=== PATIENT | male | born 1955 | race Caucasian/White ===

== ENCOUNTER 2020-07-22 20:02 | Emergency (ER) | payer MEDICARE, SELFPAY ==
--- NOTE | 2020-07-22 20:21 | ED.PSYCH ---
HPI - Psych General Stated Complaint: SI Time Seen by Provider: 07/22/20 20:21 Source: patient Mode of arrival: ambulatory Limitations: no limitations History of Present Illness MD complaint: suicidal ideation and feels depressed Onset (ago): day(s) (started on ) Duration: constant History of same: Yes Relieving factors: none Exacerbating factors: none Context: significant life stressor Associated psychiatric symptoms: depression and suicidal ideation Associated symptoms: denies other symptoms Treatments prior to arrival: none If self harm: admits thoughts of self harm and has plan Related Data Allergies Allergy/AdvReac Type Severity Reaction Status Date / Time No Known Drug Allergies Allergy Unknown NONE Unverified 04/08/20 17:00 [NO KNOWN DRUG ALLERGIES] Review of Systems Review of Systems: Constitutional : No Fever, No Chills ENT/Mouth : No Ear Pain, No Nasal Congestion, No sore throat Eyes: No Eye Pain, No Swelling, No Redness Cardiovascular : No Chest Pain, No SOB Respiratory : No Cough, No Sputum, No Dyspnea Gastrointestinal : No Nausea, No Vomiting, No Diarrhea, No Hematochezia, No Melena Genitourinary : No Dysuria, No Urinary Frequency, No Hematuria Musculoskeletal : No Myalgias Skin : No Skin Lesions, No rash Neuro : No Weakness, No Numbness, No Paresthesias, No Dizziness, No Headache Psych : positive Anxiety, positive Depression, positive SI no HI Heme/Lymph: No Lymphadenopathy Endocrine : No Polyuria, No Polydipsia All other systems reviewed and are negative [facility] Past Medical History Attestation statement: The following information was validated with the patient. Medical History (Updated 07/22/20 @ 20:48 by Mona Dorman DO) Anemia Cognitive impairment Depression HTN (hypertension) Hyperlipidemia Stroke Social History Social History (Updated 07/22/20 @ 20:45 by Mona Dorman DO) Alcohol intake: former Smoking Status: Former smoker Physical Exam Vital Signs: Appearance: Alert. Oriented X3. No acute distress. Flat affect Eyes: Pupils equal, round and reactive to light. ENT: Pharynx normal. Neck: Normal inspection. Neck supple. CVS: Normal heart rate and rhythm. Pulses normal. Respiratory: No respiratory distress. Breath sounds normal. Abdomen: Soft and non-tender. Skin: Skin warm and dry. Normal skin color. Normal skin turgor. Extremities: No lower extremity edema. No calf ttp old scars noted L forearm Neuro: Oriented X 3. No motor deficit. No sensory deficit. Course Course Course Narrative: signed out pending N input MDM - Psych MDM Narrative Medical decision making narrative: 65 yo male with hx of mental health issues here with worsening depression and SI - hx of attempts in the past at this time will need labs, COVID swab, N consult Discharge Plan Discharge Clinical Impression: Depression Qualifiers: Depression Type: unspecified Qualified Code(s): F32.9 - Major depressive disorder, single episode, unspecified
[2020-07-22 21:01] VITALS: BP 184/92; PULSE 70; RESP 20; TEMP 36.6; O2SAT 97
[2020-07-22 21:12] LABS: Basophils Absolute Auto 0.1 X10*3/uL (0.0-0.2); Basophils Percent Auto 0.7 % (0-2); Eosinophils Absolute Auto 0.4 X10*3/uL (0.0-0.4); Eosinophils Percent Auto 3.6 % (0-4); Hematocrit 43.3 % (42-52); Imm Gran Abs Auto 0.02 X10*3/uL (0.00-0.03); Imm Gran Pct Auto 0.2 % (0.0-0.4); Lymphocytes Absolute Auto 2.6 X10*3/uL (1.2-4.9); Lymphocytes Percent Auto 24.7 % (20-40); MANUAL DIFF FLAG NO; Mean Corpuscular HGB Conc 34.6 g/dl (31.0-36.0); Mean Corpuscular Hemoglobin 30.4 pg (27.0-33.0); Mean Corpuscular Volume 87.8 fL (80-98); Mean Platelet Volume 9.7 fL (9.4-12.4); Monocytes Absolute Auto 0.9 X10*3/uL (0.1-1.2); Monocytes Percent Auto 8.2 % (2-11); Neutrophils Absolute Auto 6.5 X10*3/uL (2.0-8.3); Neutrophils Percent Auto 62.6 % (45-73); Platelet Count 278 X10*3/uL (160-400); Red Blood Count 4.93 X10*6/uL (4.60-5.80); Red Cell Distribution Width 12.1 % (11.0-16.0); White Blood Count 10.3 X10*3/uL (4.8-10.8)
[2020-07-22 21:39] LABS: Ethanol < 10 mg/dL
[2020-07-22 21:41] LABS: Alanine Aminotransferase 24 U/L (0-40); Albumin Level 4.5 g/dL (3.5-5.0); Alkaline Phosphatase 144 U/L (39-117); Anion Gap 14 (12-20); Aspartate Amino Transferase 23 U/L (5-37); Bilirubin Direct 0.3 mg/dL (0.0-0.5); Bilirubin Total 0.9 mg/dL (0.0-1.0); Blood Urea Nitrogen 19 mg/dL (9-16); Calcium 8.8 mg/dL (8.4-10.2); Carbon Dioxide 25 mmol/L (22-29); Chloride 103 mmol/L (96-108); Estimated Glomerular Filt Rate > 60; Glucose Random 102 mg/dL (60-115); Potassium 3.9 mmol/l (3.3-5.1); Sodium 138 mmol/L (135-145); Total Protein 7.5 g/dL (6.5-8.0)
[2020-07-22 21:41] LABS: COVID-19 Test Negative (Negative)
[2020-07-22 21:43] LABS: Amphetamine Screen Urine Not Detected (Not Detect); Barbiturates, Urine Not Detected (Not Detect); Benzodiazepines Screen Urine Not Detected (Not Detect); Cannabinoid Screen Urine Not Detected (Not Detect); Cocaine Screen Urine Not Detected (Not Detect); Opiate Screen Urine Not Detected (Not Detect); Phencyclidine Screen Urine Not Detected (Not Detect)
[2020-07-22 22:02] VITALS: BP 184/92; PULSE 70; RESP 16; TEMP 36.6; O2SAT 97; BMI 25.8
--- NOTE | 2020-07-22 23:09 | PC.NURSE ---
[facility] faxed and called. They said PT would be seen tonight.
[2020-07-22 23:39] VITALS: BP 127/58; PULSE 51; RESP 16; TEMP 36.7; O2SAT 97
--- NOTE | 2020-07-23 01:16 | PC.NURSE ---
[facility] at bedside.
--- NOTE | 2020-07-23 03:14 | PC.NURSE ---
Seen by JEREMIAS. Plan is transport PT to respite facility in the morning.
[2020-07-23 06:05] VITALS: BP 144/84; PULSE 73; RESP 16; TEMP 36.6; O2SAT 97
--- NOTE | 2020-07-23 07:01 | PC.NURSE ---
Report received. PT currently resting, calm and cooperative, denies complaints. Pt to go to respite today.
[2020-07-23 09:15] VITALS: BP 159/84; PULSE 71; TEMP 36.6; O2SAT 97
[2020-07-23] MEDS: Atorvastatin Calcium 40 MG TABLET PO (09:50)
[2020-07-23] MEDS: Folic Acid 1 MG TABLET PO (09:50)
[2020-07-23] MEDS: hydroCHLOROthiazide 25 MG TABLET PO (09:50)
[2020-07-23 09:51] VITALS: BP 159/84; PULSE 71
[2020-07-23] MEDS: Aspirin Enteric Coated 81 MG TABLET.DR PO (09:51)
[2020-07-23] MEDS: lisinopriL 10 MG TABLET PO (09:51)
[2020-07-23] MEDS: Loratadine 10 MG TABLET PO (09:51)
== END 2020-07-23 10:08 ==
PROVIDERS: Emergency Provider Emergency Medicine
DX: F33.1 Major depressive disorder, recurrent, moderate (principal); R45.851 Suicidal ideations; I10 Essential (primary) hypertension; Z20.828 Contact with and (suspected) exposure to other viral communicable diseases; Z87.891 Personal history of nicotine dependence; Z79.899 Other long term (current) drug therapy
CPT/HCPCS: 36415; 80048; 80076; 80307; 80320; 83735; 85025; 87635; 99284; 99285

== ENCOUNTER 2020-11-05 14:22 | Emergency (ER) | payer MEDICARE, SELFPAY ==
--- NOTE | ~2020-11-05 | XR_ITS ---
EXAMINATION: XR CHEST CLINICAL INFORMATION: Shortness of breath. COMPARISON: Chest done on 09/25/2016. TECHNIQUE: Frontal view of the chest was obtained. FINDINGS: No significant abnormality is noted involving the heart, lungs, mediastinum, bony thorax or soft tissues. XR/XR chest 1V IMPRESSION: Unremarkable examination. No significant change since 09/25/2016.
[2020-11-05 14:38] VITALS: BP 151/73; PULSE 89; RESP 18; TEMP 37; O2SAT 97; BMI 29.0
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
[2020-11-05 16:00] VITALS: BP 127/82; PULSE 84; RESP 16; O2SAT 98
--- NOTE | 2020-11-05 16:21 | ECG_ITS ---
Test Reason : [employer] [employer] Blood Pressure : / mmHG Vent. Rate : 068 BPM Atrial Rate : 068 BPM P-R Int : 160 ms QRS Dur : 088 ms QT Int : 400 ms P-R-T Axes : -02 017 025 degrees QTc Int : 425 ms Normal sinus rhythm Normal ECG When compared with ECG of 25-SEP-2016 23:15, Premature atrial complexes are no longer Present Referred By: Ruma Stevens Electronically Signed By:Xander Sewell
--- NOTE | 2020-11-05 16:22 | ED_ITS ---
HPI - General Adult General Chief complaint: General Medical Stated complaint: ams Time Seen by Provider: 11/05/20 15:53 Source: patient Mode of arrival: ambulatory Limitations: no limitations History of Present Illness HPI narrative: 65 y/o male with history of HTN & diabetes who presents to the ER for evaluation of multiple medical complaints evolving over the last several months. He is concerned he is being exposed to mold in his apartment. Since he moved into this hotel converted to apartments about 1 year ago he has developed several symptoms including brain fog, SOB, fatigue, loss of sense of taste, tw itching lower extremities and depression and anxiety. He has not seen his PCP in over 1 year. He states he has complained about the state of his heating/cooling system in his apartment with no one to fix it. He does not know if anyone else in the building has similar complaints. He reports compliance with his medications and adequate control of his glucose. He denies chest pain. He states his SOB is when he tried to take a deep breath or if he walks long distances. He states his breathing already feels better being out of his apartment. MD complaint: multiple medical complaints Onset (ago): month(s) Location: head and chest Radiation: non-radiation Severity: moderate Quality: aching and dull Pain Consistency: intermittent Relieving factors: none Exacerbating factors: movement Associated symptoms: confusion, headaches, loss of appetite, malaise and shortness of breath Treatments prior to arrival: none Related Data Home Medications Medication Instructions Recorded Confirmed aspirin 1 tab PO DAILY 07/22/20 07/22/20 atorvastatin 40 mg PO DAILY 07/22/20 07/22/20 fexofenadine 1 tab PO DAILY 07/22/20 07/22/20 folic acid 1 tab PO DAILY 07/22/20 07/22/20 hydrochlorothiazide 1 tab PO DAILY 07/22/20 07/22/20 ketoconazole 1 appl TOPICAL DAILY 07/22/20 07/22/20 lisinopril 1 tab PO DAILY 07/22/20 07/22/20 metformin 1 tab PO DAILY 07/22/20 07/22/20 Previous Rx's Medication Instructions Recorded cetirizine [Zyrtec] 10 mg PO DAILY #20 tab 11/05/20 Allergies Allergy/AdvReac Type Severity Reaction Status Date / Time No Known Drug Allergies Allergy Unknown NONE Unverified 04/08/20 17:00 [NO KNOWN DRUG ALLERGIES] Review of Systems Review of Systems: Constitutional: No Fever, No Chills ENT/Mouth: No sore throat, + Rhinorrhea, No Swallowing Difficulty Eyes: No Eye Pain, No Swelling, No Redness, +watering eyes Cardiovascular: No Chest Pain, +SOB, No Orthopnea, No Edema Respiratory: + Cough, No Sputum, No Wheezing, No dyspnea Gastrointestinal: No Nausea, No Vomiting, No Diarrhea, No abdominal Pain, No Hematochezia, No Melena Genitourinary: No Dysuria, No Urinary Frequency, No Hematuria Musculoskeletal: No joint pain, + Myalgias Skin: No Skin Lesions, No rash Neuro: No Weakness, No Numbness, No Dizziness, + Headache Psych: + Anxiety/Panic, + Depression Heme/Lymph: No Bruising, No Lymphadenopathy Endocrine: No Polyuria, No Polydipsia PMFSH Past Medical History Attestation statement: The following information was validated with the patient. Medical History Anemia Cognitive impairment Depression HTN (hypertension) Hyperlipidemia Stroke Social History Social History (Updated 07/22/20 @ 20:45 by Mona Dorman DO) Alcohol intake: former Smoking Status: Former smoker Use of substances other than those prescribed or required for medical reasons: No Advance Directives: Yes Advance Directives Information Provided: Yes Advance Directives on File: No Physical Exam Vital Signs: Vital Signs: Last Vital Signs Temp 98.6 F 11/05/20 14:38 Pulse 84 11/05/20 16:00 Resp 16 11/05/20 16:00 BP 127/82 11/05/20 16:00 Pulse Ox 98 11/05/20 16:00 Body Mass Index 29.0 Appearance: Alert. Oriented X3. No acute distress. Eyes: Pupils equal, round and reactive to light. ENT: Pharynx normal. Neck: Normal inspection. Neck supple. CVS: Normal heart rate and rhythm. Pulses normal. Respiratory: No respiratory distress. Breath sounds normal. Abdomen: Soft and nontender. +BS x4 Skin: Skin warm and dry. Normal skin color. Normal skin turgor. No rashes. Extremities: No lower extremity edema. Neuro: Oriented X 3. No motor deficit. No sensory deficit. Course Course Course Narrative: 65 y/o male with history of HTN and DM who presents with multiple medical complaints evolving over the last several months that he attributes to mold exposure in his apartment. He appears well on exam and his VS are normal. Low suspicion for any acute fungal pneumonia or pneumonitis, his lungs are clear. Given his report of loss of taste and SOB will get COVID swab, CXR and EKG. Basic lab workup ordered as well to r/o metabolic derangements. Reevaluation(s) Reevaluation #1: workup is unremarkable. Patient needs to follow up with his PCP for further management of his chronic medical issues. He understands and agrees. Medical Decision Making Lab Data Result diagrams: 11/05/20 17:01 11/05/20 17:01 Labs: Lab Results 11/05/20 11/05/20 11/05/20 Range/Units 16:56 16:58 17:01 WBC 10.2 (4.8-10.8) X10*3/uL RBC 4.88 (4.60-5.80) X10*6/uL Hgb 14.7 (14.0-18.0) g/dl Hct 43.7 (42-52) % MCV 89.5 (80-98) fL MCH 30.1 (27.0-33.0) pg MCHC 33.6 (31.0-36.0) g/dl RDW 13.2 (11.0-16.0) % Plt Count 274 (160-400) X10*3/uL MPV 9.4 (9.4-12.4) fL Immature Gran % (Auto) 0.5 H (0.0-0.4) % Neut % (Auto) 67.1 (45-73) % Lymph % (Auto) 19.7 L (20-40) % [place] % (Auto) 9.0 (2-11) % Eos % (Auto) 3.0 (0-4) % Baso % (Auto) 0.7 (0-2) % Lymph # (Auto) 2.0 (1.2-4.9) X10*3/uL [place] # (Auto) 0.9 (0.1-1.2) X10*3/uL Eos # (Auto) 0.3 (0.0-0.4) X10*3/uL Baso # (Auto) 0.1 (0.0-0.2) X10*3/uL Abs Immat Gran (auto) 0.05 H (0.00-0.03) X10*3/uL Absolute Neuts (auto) 6.8 (2.0-8.3) X10*3/uL Absolute Nucleated RBC 0.000 (0.0-0.012) X10*3/uL Nucleated RBC % (auto) 0.0 (0.0-0.2) /100WBC Hold Blue Top Sodium (135-145) mmol/L Potassium (3.3-5.1) mmol/L Chloride (96-108) mmol/L Carbon Dioxide (22-29) mmol/L Anion Gap (12-20) BUN (9-16) mg/dL Creatinine (0.5-1.4) mg/dL Estim Creat Clear Calc Estimated GFR Random Glucose (60-115) mg/dL Calcium (8.4-10.2) mg/dL Magnesium (1.6-2.6) mg/dL Total Bilirubin (0.0-1.0) mg/dL Direct Bilirubin (0.0-0.5) mg/dL AST (5-37) U/L ALT (0-40) U/L Alkaline Phosphatase (39-117) U/L Total Protein (6.5-8.0) g/dL Albumin (3.5-5.0) g/dL Urine Color YELLOW Urine Appearance CLEAR Urine pH 5.5 (5.0-8.0) Ur Specific [place] >= 1.030 H (1.005-1.025) Urine Protein NEG (NEG-TRACE) MG/DL Urine Glucose (UA) NEG (NEG) MG/DL Urine Ketones NEG (NEG) MG/DL Urine Blood 1+ H (NEG) Urine Nitrite NEG (NEG) Ur Leukocyte Esterase NEG (NEG) Urine RBC 0-2 (0) /HPF Urine WBC 0-2 (0-4) /HPF Ur Squamous Epith Cells TRACE /LPF Urine Bacteria NONE /LPF Coronavirus (PCR) NEGATIVE (Negative) Influenza Type A (PCR) NEGATIVE (Negative) Influenza Type B (PCR) NEGATIVE (Negative) RSV RNA Qual (PCR) NEGATIVE (Negative) 11/05/20 11/05/20 Range/Units 17:01 17:01 WBC (4.8-10.8) X10*3/uL RBC (4.60-5.80) X10*6/uL Hgb (14.0-18.0) g/dl Hct (42-52) % MCV (80-98) fL MCH (27.0-33.0) pg MCHC (31.0-36.0) g/dl RDW (11.0-16.0) % Plt Count (160-400) X10*3/uL MPV (9.4-12.4) fL Immature Gran % (Auto) (0.0-0.4) % Neut % (Auto) (45-73) % Lymph % (Auto) (20-40) % [place] % (Auto) (2-11) % Eos % (Auto) (0-4) % Baso % (Auto) (0-2) % Lymph # (Auto) (1.2-4.9) X10*3/uL [place] # (Auto) (0.1-1.2) X10*3/uL Eos # (Auto) (0.0-0.4) X10*3/uL Baso # (Auto) (0.0-0.2) X10*3/uL Abs Immat Gran (auto) (0.00-0.03) X10*3/uL Absolute Neuts (auto) (2.0-8.3) X10*3/uL Absolute Nucleated RBC (0.0-0.012) X10*3/uL Nucleated RBC % (auto) (0.0-0.2) /100WBC Hold Blue Top SEE NOTE Sodium 139 (135-145) mmol/L Potassium 4.0 (3.3-5.1) mmol/L Chloride 107 (96-108) mmol/L Carbon Dioxide 23 (22-29) mmol/L Anion Gap 13 (12-20) BUN 25 H (9-16) mg/dL Creatinine 0.75 (0.5-1.4) mg/dL Estim Creat Clear Calc 99.8 Estimated GFR > 60 Random Glucose 98 (60-115) mg/dL Calcium 8.7 (8.4-10.2) mg/dL Magnesium 2.2 (1.6-2.6) mg/dL Total Bilirubin 0.6 (0.0-1.0) mg/dL Direct Bilirubin 0.2 (0.0-0.5) mg/dL AST 16 (5-37) U/L ALT 36 (0-40) U/L Alkaline Phosphatase 131 H (39-117) U/L Total Protein 7.1 (6.5-8.0) g/dL Albumin 4.1 (3.5-5.0) g/dL Urine Color Urine Appearance Urine pH (5.0-8.0) Ur Specific [place] (1.005-1.025) Urine Protein (NEG-TRACE) MG/DL Urine Glucose (UA) (NEG) MG/DL Urine Ketones (NEG) MG/DL Urine Blood (NEG) Urine Nitrite (NEG) Ur Leukocyte Esterase (NEG) Urine RBC (0) /HPF Urine WBC (0-4) /HPF Ur Squamous Epith Cells /LPF Urine Bacteria /LPF Coronavirus (PCR) (Negative) Influenza Type A (PCR) (Negative) Influenza Type B (PCR) (Negative) RSV RNA Qual (PCR) (Negative) ECG Data Attestation: I personally reviewed and interpreted this ECG as follows: Interpretation: normal sinus rhythm, HR 68 bpm, normal NC interval, normal QTc, no ST segment elevations or depressions Discharge Plan Discharge Clinical Impression: Suspected exposure to mold Patient Disposition: Home, Self-Care Instructions: Allergies (ED) Additional Instructions: Your lab workup today was unremarkable. Your chest x-ray was normal. Your EKG was normal. Your COVID test was negative. Given your concern for exposure to mold recommend following up with your landlord and the Department of Health. You can start taking Benadryl as needed for itching. You need to follow up with your Primary Care provider for further management and workup. If you have acutely worsening or new symptoms come back to the ER for further evaluation. Prescriptions: New cetirizine [Zyrtec] 10 mg tablet 10 mg PO DAILY Qty: 20 RF: 0 No Action ketoconazole 2 % shampoo 1 appl topical DAILY RF: 0 fexofenadine 180 mg tablet 1 tab PO DAILY RF: 0 aspirin 81 mg tablet,delayed release (DR/EC) 1 tab PO DAILY RF: 0 lisinopril 10 mg tablet 1 tab PO DAILY RF: 0 folic acid 1 mg tablet 1 tab PO DAILY RF: 0 hydrochlorothiazide 25 mg tablet 1 tab PO DAILY RF: 0 metformin 500 mg tablet extended release 24 hr 1 tab PO DAILY RF: 0 atorvastatin 40 mg tablet 40 mg PO DAILY RF: 0
[2020-11-05 17:07] LABS: MANUAL DIFF FLAG NO
[2020-11-05 17:10] LABS: Basophils Absolute Auto 0.1 X10*3/uL (0.0-0.2); Basophils Percent Auto 0.7 % (0-2); Eosinophils Absolute Auto 0.3 X10*3/uL (0.0-0.4); Hematocrit 43.7 % (42-52); Hemoglobin 14.7 g/dl (14.0-18.0); Imm Gran Abs Auto 0.05 X10*3/uL (0.00-0.03); Imm Gran Pct Auto 0.5 % (0.0-0.4); Lymphocytes Percent Auto 19.7 % (20-40); Mean Corpuscular HGB Conc 33.6 g/dl (31.0-36.0); Mean Corpuscular Hemoglobin 30.1 pg (27.0-33.0); Mean Corpuscular Volume 89.5 fL (80-98); Mean Platelet Volume 9.4 fL (9.4-12.4); Monocytes Absolute Auto 0.9 X10*3/uL (0.1-1.2); Neutrophils Absolute Auto 6.8 X10*3/uL (2.0-8.3); Neutrophils Percent Auto 67.1 % (45-73); Platelet Count 274 X10*3/uL (160-400); Red Blood Count 4.88 X10*6/uL (4.60-5.80); Red Cell Distribution Width 13.2 % (11.0-16.0); White Blood Count 10.2 X10*3/uL (4.8-10.8)
[2020-11-05 17:14] LABS: Glucose Urine UA NEG (NEG); Leukocyte Esterase Urine NEG (NEG); Nitrite Urine NEG (NEG); PH 5.5 (5.0-8.0); Specific Gravity - Urine >= 1.030 (1.005-1.025); Urine Blood 1+ (NEG); Urine Ketones NEG (NEG); Urine Protein NEG (NEG-TRACE)
[2020-11-05 17:23] LABS: Appearance Urine CLEAR; Color Urine YELLOW
[2020-11-05 17:31] LABS: Alanine Aminotransferase 36 U/L (0-40); Albumin Level 4.1 g/dL (3.5-5.0); Alkaline Phosphatase 131 U/L (39-117); Anion Gap 13 (12-20); Aspartate Amino Transferase 16 U/L (5-37); Bilirubin Direct 0.2 mg/dL (0.0-0.5); Bilirubin Total 0.6 mg/dL (0.0-1.0); Blood Urea Nitrogen 25 mg/dL (9-16); Calcium 8.7 mg/dL (8.4-10.2); Carbon Dioxide 23 mmol/L (22-29); Chloride 107 mmol/L (96-108); Creatinine Clr Calc Pharmacy 99.8; Estimated Glomerular Filt Rate > 60; Glucose Random 98 mg/dL (60-115); Magnesium 2.2 mg/dL (1.6-2.6); Sodium 139 mmol/L (135-145); Total Protein 7.1 g/dL (6.5-8.0)
[2020-11-05 17:37] LABS: RBC Urine 0-2 /HPF (0); Squamous Epithelial Cell Urine TRACE /LPF; WBC Urine 0-2 /HPF (0-4)
[2020-11-05 17:49] LABS: Influenza A PCR NEGATIVE (Negative); Influenza B PCR NEGATIVE (Negative); Resp Syncy Virus RNA Qual PCR NEGATIVE (Negative); SARS COV2 PCR INHOUSE NEGATIVE (Negative)
[2020-11-05 18:21] VITALS: BP 122/76; PULSE 86; RESP 15; O2SAT 98
== END 2020-11-05 18:24 | disposition home or self-care (01) ==
PROVIDERS: Physician Assistant; Emergency Provider Emergency Medicine Emergency Medical Services; PCP Internal Medicine
DX: R51.9 Headache, unspecified (principal); R53.81 Other malaise; R06.02 Shortness of breath; F32.9 Major depressive disorder, single episode, unspecified; Z20.822 Contact with and (suspected) exposure to COVID-19; I10 Essential (primary) hypertension; E11.9 Type 2 diabetes mellitus without complications; E78.5 Hyperlipidemia, unspecified; D64.9 Anemia, unspecified; Z87.891 Personal history of nicotine dependence
CPT/HCPCS: 0241U; 36415; 71045; 80048; 80076; 81001; 83735; 85025; 93005; 99283; 99284

== ENCOUNTER 2020-11-17 14:30 | Inpatient (IN) | payer MEDICARE, SELFPAY ==
[2020-11-17] VITALS (15 sets, daily range): BP systolic 58–136; BP diastolic 31–66; PULSE 48–80; RESP 10–24; TEMP 36.3–36.8; O2SAT 75–97; BMI 25.8
--- NOTE | 2020-11-17 | ECG_ITS ---
Test Reason : FALL Blood Pressure : / mmHG Vent. Rate : 063 BPM Atrial Rate : 063 BPM P-R Int : 160 ms QRS Dur : 096 ms QT Int : 458 ms P-R-T Axes : -15 014 015 degrees QTc Int : 468 ms Normal sinus rhythm Normal ECG When compared with ECG of 05-NOV-2020 16:36, No significant change was found Referred By: Cathy Da Silva Electronically Signed By:MARCIAL HANNON MD
--- NOTE | ~2020-11-17 | CT_ITS ---
EXAMINATION: CT HEAD WITHOUT CONTRAST CT CERVICAL SPINE WITHOUT CONTRAST CLINICAL INFORMATION: Fall COMPARISON: Head CT 09/25/2016 TECHNIQUE: A noncontrast CT of the head and a noncontrast CT of the cervical spine with sagittal and coronal reformats. This CT examination was performed using dose optimization techniques as appropriate, variously including the following: *Automated exposure control *Adjustment of mA and/or kV according to patient size (this includes techniques or standardized protocols for targeted exams where dose is matched to indication/reason for exam; i.e. extremities or head) *Use of iterative reconstruction technique DLP: 1253 FINDINGS: No intra-axial or extra-axial hemorrhage. Right frontal subcutaneous hematoma. No acute territorial infarct. Ventricles and sulci appear normal. Preservation of [place]-white matter differentiation. No mass, mass effect, or midline shift. No fracture. The mastoid air cells and visualized paranasal sinuses are clear. Normal alignment of the cervical spine. No fracture. No prevertebral soft tissue swelling. Moderate severe degenerative disc disease throughout the cervical spine. Minimal retrolisthesis of C5-C6. Multilevel facet arthrosis, with fusion of the C3-C4 facet joints on the left. CT/CT cervical spine wo con IMPRESSION: No acute intracranial abnormality. No cervical spine fracture or traumatic subluxation.
--- NOTE | ~2020-11-17 | CT_ITS ---
EXAMINATION: CT HEAD WITHOUT CONTRAST CT CERVICAL SPINE WITHOUT CONTRAST CLINICAL INFORMATION: Fall COMPARISON: Head CT 09/25/2016 TECHNIQUE: A noncontrast CT of the head and a noncontrast CT of the cervical spine with sagittal and coronal reformats. This CT examination was performed using dose optimization techniques as appropriate, variously including the following: *Automated exposure control *Adjustment of mA and/or kV according to patient size (this includes techniques or standardized protocols for targeted exams where dose is matched to indication/reason for exam; i.e. extremities or head) *Use of iterative reconstruction technique DLP: 1253 FINDINGS: No intra-axial or extra-axial hemorrhage. Right frontal subcutaneous hematoma. No acute territorial infarct. Ventricles and sulci appear normal. Preservation of aguillon-white matter differentiation. No mass, mass effect, or midline shift. No fracture. The mastoid air cells and visualized paranasal sinuses are clear. Normal alignment of the cervical spine. No fracture. No prevertebral soft tissue swelling. Moderate severe degenerative disc disease throughout the cervical spine. Minimal retrolisthesis of C5-C6. Multilevel facet arthrosis, with fusion of the C3-C4 facet joints on the left. CT/CT head/brain wo con IMPRESSION: No acute intracranial abnormality. No cervical spine fracture or traumatic subluxation.
[2020-11-17 15:48] LABS: Appearance Urine CLEAR; Color Urine YELLOW; Glucose Urine UA NEG (NEG); Leukocyte Esterase Urine NEG (NEG); Nitrite Urine NEG (NEG); Specific Gravity - Urine >= 1.030 (1.005-1.025); Urine Blood TRACE (NEG); Urine Ketones 5 MG/DL (NEG); Urine Protein NEG (NEG-TRACE)
[2020-11-17 15:54] LABS: Bacteria Urine TRACE /LPF; RBC Urine 0-2 /HPF (0); Squamous Epithelial Cell Urine TRACE /LPF; WBC Urine 0 /HPF (0-4)
[2020-11-17 16:12] LABS: MANUAL DIFF FLAG NO
--- NOTE | 2020-11-17 16:13 | PC.NURSE ---
patient a&ox3, pasta maker applied- pt nsr on monitor, vitals stable, pt denies pain or discomfort, labs drawn, urine obtained, ekg performed, sitter at bedside, will continue to monitor.
[2020-11-17 16:15] LABS: Basophils Percent Auto 0.2 % (0-2); Eosinophils Absolute Auto 0.1 X10*3/uL (0.0-0.4); Eosinophils Percent Auto 0.5 % (0-4); Hematocrit 49.9 % (42-52); Hemoglobin 17.2 g/dl (14.0-18.0); Imm Gran Abs Auto 0.09 X10*3/uL (0.00-0.03); Imm Gran Pct Auto 0.5 % (0.0-0.4); Lymphocytes Absolute Auto 1.2 X10*3/uL (1.2-4.9); Mean Corpuscular HGB Conc 34.5 g/dl (31.0-36.0); Mean Corpuscular Hemoglobin 30.3 pg (27.0-33.0); Mean Platelet Volume 9.7 fL (9.4-12.4); Monocytes Absolute Auto 1.4 X10*3/uL (0.1-1.2); Monocytes Percent Auto 8.2 % (2-11); Neutrophils Percent Auto 83.6 % (45-73); Platelet Count 275 X10*3/uL (160-400); Red Blood Count 5.67 X10*6/uL (4.60-5.80); Red Cell Distribution Width 12.3 % (11.0-16.0); White Blood Count 16.7 X10*3/uL (4.8-10.8)
[2020-11-17 16:23] LABS: Amphetamine Screen Urine Not Detected (Not Detect); Barbiturates, Urine Not Detected (Not Detect); Benzodiazepines Screen Urine Not Detected (Not Detect); Cannabinoid Screen Urine Not Detected (Not Detect); Cocaine Screen Urine Not Detected (Not Detect); Opiate Screen Urine Not Detected (Not Detect); Phencyclidine Screen Urine Not Detected (Not Detect)
--- NOTE | 2020-11-17 16:28 | ED_ITS ---
HPI - Overdose General Chief Complaint: Overdose Stated Complaint: section 12 Time Seen by Provider: 11/17/20 16:16 Source: patient Mode of arrival: EMS Limitations: no limitations History of Present Illness HPI Narrative: Patient is a 65-year-old male who was BIBA after he called 911 because he felt like he was going to , he claims he took 60-70 clonidine and 20 Wellbutrin over the last 36 hours. Patient states this is his 2nd suicide attempts, he tried slashing his left wrist in 2016. He states that since 2014, his life has fallen apart and just spiral downward. He states he was here a couple of weeks ago and was put in a respite and then ended up in the back in the same apartment where he is miserable. He denies any HI. He denies any hallucinations, auditory or visual. He states he has been super tired over the last 36 hours after taking these meds and fell a few times, he fell on his knees and hit his head on the refrigerator, also hit his right shoulder on something, he is unsure what. Pt denies being on a blood thinner during this time. Related Data Home Medications Medication Instructions Recorded Confirmed aspirin 1 tab PO DAILY 07/22/20 11/17/20 atorvastatin 40 mg PO DAILY 07/22/20 11/17/20 fexofenadine 1 tab PO DAILY 07/22/20 11/17/20 folic acid 1 tab PO DAILY 07/22/20 11/17/20 hydrochlorothiazide 1 tab PO DAILY 07/22/20 11/17/20 ketoconazole 1 appl TOPICAL DAILY 07/22/20 11/17/20 lisinopril 1 tab PO DAILY 07/22/20 11/17/20 metformin 1 tab PO DAILY 07/22/20 11/17/20 adalimumab [Humira(CF) Pen] 40 mg SUBCUT Q2W 11/17/20 11/17/20 bupropion HCl 1 tab PO BID 11/17/20 11/17/20 clonidine HCl 1 tab PO BID 11/17/20 11/17/20 duloxetine 1 cap PO DAILY 11/17/20 11/17/20 duloxetine 1 cap PO DAILY 11/17/20 11/17/20 fluticasone propionate 1 spray INTRANASAL BID 11/17/20 11/17/20 Allergies Allergy/AdvReac Type Severity Reaction Status Date / Time No Known Drug Allergies Allergy Unknown NONE Unverified 04/08/20 17:00 [NO KNOWN DRUG ALLERGIES] Review of Systems Review of Systems: Yes all other systems are reviewed and are negative [facility] Past Medical History Medical History (Updated 11/18/20 @ 16:45 by Cathy Da Silva PA-C) Anemia Cognitive impairment Depression Diabetes HTN (hypertension) Hyperlipidemia Psoriasis Stroke Social History Social History Household Members: None Housing: House Do you presently have visiting nurse or other home services: Yes Alcohol intake: former Smoking Status: Former smoker Use of substances other than those prescribed or required for medical reasons: No Currently Displaying Signs/Symptoms of Drug Intoxication Withdrawal: No Have you been hit, kicked, punched, or otherwise hurt by someone within the past year? If so, by whom?: No Do you feel safe in your current relationship?: No Current Relationship Is there a partner from a previous relationship who is making you feel unsafe now?: No Are you made to feel afraid or neglected: No Advance Directives: No Advance Directives Information Provided: No Do you have thoughts of harming others: None Do you have a plan to hurt others: No Plan Recently lost weight without trying: No service: No Current occupational status: disabled Physical Exam Vital Signs: Vital Signs: Last Vital Signs Temp 97.8 F 11/18/20 15:50 Pulse 87 11/18/20 15:50 Resp 22 H 11/18/20 15:50 BP 122/73 11/18/20 15:50 Pulse Ox 97 11/18/20 15:50 Body Mass Index 25.8 Const: General: cooperative, healthy appearing, comfortable, no acute distress and well developed Orientation/consciousness: patient oriented x3 Limitations: no limitations HENMT: Head: Yes normal to inspection, No Hu's sign, Yes contusion (right forehead with superficial abrasions), No raccoon eyes, Yes scalp tenderness, No Temporal artery tenderness present and No periorbital ecchymosis Ears: hearing grossly normal bilaterally and external ears normal General nose exam: Normal external nose present and Normal nares present Face and sinus: Yes normal facial exam Mouth: Normal oral and palatal mucosa present Teeth and gingiva: fair dentition Eyes: General: appearance normal, both eyes and all related structures Neck: Neck: Yes normal visual inspection and Yes full ROM Resp: Effort & Inspection: normal respiratory effort and able to speak in complete sentences Auscultation: clear to auscultation bilaterally Cardio: Rate: regular rate Rhythm: regular rhythm Heart sounds: normal S1 and S2 GI: Inspection: Yes normal to inspection Palpation (GI): Soft to palpation and nontender Skin: General skin exam: no rashes or lesions noted Neuro: General: patient oriented x3 Extrem: General: Yes normal to inspection Psych: Appearance: well kempt Speech and movement: Slurred speech present Affect: Labile affect present and Sad affect present Attitude: cooperative Thought process: Normal thought process present Thought content: Suicidality present, no homicidality, no hallucinations and Depressive thoughts present Insight: Fair insight present (Psych) Judgement: Fair judgement present (Psych) Course Course Course Narrative: Patient is a 65-year-old male who was BIBA after he called 911 because he felt like he was going to , he claims he took 60-70 clonidine and 20 Wellbutrin over the last 36 hours. Will get protocol labs for overdose, poison Control was contacted and advised the patient should have Q 4 hour EKGs and be monitored for [address] Guan, he will accept pt. MDM - Overdose Medical Records Attestation: I reviewed the patient's medical records. Lab Data Attestation: I reviewed the patient's lab results. Result diagrams: 11/18/20 05:22 11/18/20 05:22 Labs: Lab Results 11/17/20 11/17/20 11/17/20 Range/Units 15:37 15:37 15:37 WBC Cancelled RBC Cancelled Hgb Cancelled Hct Cancelled MCV Cancelled MCH Cancelled MCHC Cancelled RDW Cancelled Plt Count Cancelled MPV Cancelled Immature Gran % (Auto) Cancelled Neut % (Auto) Cancelled Lymph % (Auto) Cancelled [place] % (Auto) Cancelled Eos % (Auto) Cancelled Baso % (Auto) Cancelled Lymph # (Auto) Cancelled [place] # (Auto) Cancelled Eos # (Auto) Cancelled Baso # (Auto) Cancelled Abs Immat Gran (auto) Cancelled Absolute Neuts (auto) Cancelled Absolute Nucleated RBC Cancelled Nucleated RBC % (auto) Cancelled Smear Tech's Comments Cancelled Sodium (135-145) mmol/L Potassium (3.3-5.1) mmol/L Chloride (96-108) mmol/L Carbon Dioxide (22-29) mmol/L Anion Gap (12-20) BUN (9-16) mg/dL Creatinine (0.5-1.4) mg/dL Estim Creat Clear Calc Estimated GFR Random Glucose (60-115) mg/dL Calcium (8.4-10.2) mg/dL Phosphorus (2.7-4.5) mg/dL Magnesium (1.6-2.6) mg/dL Total Bilirubin (0.0-1.0) mg/dL AST (5-37) U/L ALT (0-40) U/L Alkaline Phosphatase (39-117) U/L Total Creatine Kinase (38-174) U/L Total Protein (6.5-8.0) g/dL Albumin (3.5-5.0) g/dL Urine Color YELLOW Urine Appearance CLEAR Urine pH 6.0 (5.0-8.0) Ur Specific [place] >= 1.030 H (1.005-1.025) Urine Protein NEG (NEG-TRACE) MG/DL Urine Glucose (UA) NEG (NEG) MG/DL Urine Ketones 5 (NEG) MG/DL Urine Blood TRACE (NEG) Urine Nitrite NEG (NEG) Ur Leukocyte Esterase NEG (NEG) Urine RBC 0-2 (0) /HPF Urine WBC 0 (0-4) /HPF Ur Squamous Epith Cells TRACE /LPF Urine Bacteria TRACE /LPF Salicylates (15-30) mg/dL Urine Opiates Screen Not Detected (Not Detect) Acetaminophen (<30) mcg/mL Ur Barbiturates Screen Not Detected (Not Detect) Ur Phencyclidine Scrn Not Detected (Not Detect) Ur Amphetamines Screen Not Detected (Not Detect) U Benzodiazepines Scrn Not Detected (Not Detect) Urine Cocaine Screen Not Detected (Not Detect) U Marijuana (THC) Screen Not Detected (Not Detect) Ethyl Alcohol mg/dL COVID-19 (BRET) (Negative) COVID-19 Clin Com 11/17/20 11/17/20 11/17/20 Range/Units 16:07 16:07 16:07 WBC 16.7 H RBC 5.67 Hgb 17.2 Hct 49.9 MCV 88.0 MCH 30.3 MCHC 34.5 RDW 12.3 Plt Count 275 MPV 9.7 Immature Gran % (Auto) 0.5 H Neut % (Auto) 83.6 H Lymph % (Auto) 7.0 L [place] % (Auto) 8.2 Eos % (Auto) 0.5 Baso % (Auto) 0.2 Lymph # (Auto) 1.2 [place] # (Auto) 1.4 H Eos # (Auto) 0.1 Baso # (Auto) 0.0 Abs Immat Gran (auto) 0.09 H Absolute Neuts (auto) 14.0 H Absolute Nucleated RBC 0.000 Nucleated RBC % (auto) 0.0 Smear Tech's Comments Sodium 136 (135-145) mmol/L Potassium 4.2 (3.3-5.1) mmol/L Chloride 99 (96-108) mmol/L Carbon Dioxide 23 (22-29) mmol/L Anion Gap 18 (12-20) BUN 38 H D (9-16) mg/dL Creatinine 1.38 (0.5-1.4) mg/dL Estim Creat Clear Calc 52.3 Estimated GFR 52 Random Glucose 144 H D (60-115) mg/dL Calcium 9.7 D (8.4-10.2) mg/dL Phosphorus 3.3 (2.7-4.5) mg/dL Magnesium 2.1 (1.6-2.6) mg/dL Total Bilirubin 1.3 H (0.0-1.0) mg/dL AST 24 D (5-37) U/L ALT 30 (0-40) U/L Alkaline Phosphatase 198 H D (39-117) U/L Total Creatine Kinase 219 H (38-174) U/L Total Protein 7.8 (6.5-8.0) g/dL Albumin 4.5 (3.5-5.0) g/dL Urine Color Urine Appearance Urine pH (5.0-8.0) Ur Specific [place] (1.005-1.025) Urine Protein (NEG-TRACE) MG/DL Urine Glucose (UA) (NEG) MG/DL Urine Ketones (NEG) MG/DL Urine Blood (NEG) Urine Nitrite (NEG) Ur Leukocyte Esterase (NEG) Urine RBC (0) /HPF Urine WBC (0-4) /HPF Ur Squamous Epith Cells /LPF Urine Bacteria /LPF Salicylates < 5.0 L (15-30) mg/dL Urine Opiates Screen (Not Detect) Acetaminophen < 1 (<30) mcg/mL Ur Barbiturates Screen (Not Detect) Ur Phencyclidine Scrn (Not Detect) Ur Amphetamines Screen (Not Detect) U Benzodiazepines Scrn (Not Detect) Urine Cocaine Screen (Not Detect) U Marijuana (THC) Screen (Not Detect) Ethyl Alcohol < 10 mg/dL COVID-19 (BRET) (Negative) COVID-19 Clin Com 11/17/20 Range/Units 17:00 WBC RBC Hgb Hct MCV MCH MCHC RDW Plt Count MPV Immature Gran % (Auto) Neut % (Auto) Lymph % (Auto) [place] % (Auto) Eos % (Auto) Baso % (Auto) Lymph # (Auto) [place] # (Auto) Eos # (Auto) Baso # (Auto) Abs Immat Gran (auto) Absolute Neuts (auto) Absolute Nucleated RBC Nucleated RBC % (auto) Smear Tech's Comments Sodium (135-145) mmol/L Potassium (3.3-5.1) mmol/L Chloride (96-108) mmol/L Carbon Dioxide (22-29) mmol/L Anion Gap (12-20) BUN (9-16) mg/dL Creatinine (0.5-1.4) mg/dL Estim Creat Clear Calc Estimated GFR Random Glucose (60-115) mg/dL Calcium (8.4-10.2) mg/dL Phosphorus (2.7-4.5) mg/dL Magnesium (1.6-2.6) mg/dL Total Bilirubin (0.0-1.0) mg/dL AST (5-37) U/L ALT (0-40) U/L Alkaline Phosphatase (39-117) U/L Total Creatine Kinase (38-174) U/L Total Protein (6.5-8.0) g/dL Albumin (3.5-5.0) g/dL Urine Color Urine Appearance Urine pH (5.0-8.0) Ur Specific [place] (1.005-1.025) Urine Protein (NEG-TRACE) MG/DL Urine Glucose (UA) (NEG) MG/DL Urine Ketones (NEG) MG/DL Urine Blood (NEG) Urine Nitrite (NEG) Ur Leukocyte Esterase (NEG) Urine RBC (0) /HPF Urine WBC (0-4) /HPF Ur Squamous Epith Cells /LPF Urine Bacteria /LPF Salicylates (15-30) mg/dL Urine Opiates Screen (Not Detect) Acetaminophen (<30) mcg/mL Ur Barbiturates Screen (Not Detect) Ur Phencyclidine Scrn (Not Detect) Ur Amphetamines Screen (Not Detect) U Benzodiazepines Scrn (Not Detect) Urine Cocaine Screen (Not Detect) U Marijuana (THC) Screen (Not Detect) Ethyl Alcohol mg/dL COVID-19 (BRET) Negative (Negative) COVID-19 Clin Com See Note Discharge Plan Discharge Clinical Impression: Drug overdose Qualifiers: Encounter type: initial encounter Injury intent: intentional self-harm Qualified Code(s): T50.902A - Poisoning by unspecified drugs, medicaments and biological substances, intentional self-harm, initial encounter Patient Disposition: Admitted As Inpatient Interventions: Admission Worksheet (ED) Last Done: 11/17/20 20:31 Discharge Date/Time: 11/17/20 20:31
--- NOTE | 2020-11-17 16:31 | PC.NURSE ---
poison control recommendation, continue monitoring for 24 hours due to wellbutrin ingestion for delayed seizures- benzos for seizures, ekgs every 4 hours
--- NOTE | 2020-11-17 16:35 | ECG_ITS ---
Test Reason : OD Blood Pressure : / mmHG Vent. Rate : 000 BPM Atrial Rate : 000 BPM P-R Int : 000 ms QRS Dur : 000 ms QT Int : 000 ms P-R-T Axes : 000 000 000 degrees QTc Int : 000 ms No QRS complexes found, no ECG analysis possible When compared with ECG of 17-NOV-2020 15:28, Current undetermined rhythm precludes rhythm comparison, needs review Referred By: Cathy Da Silva Electronically Signed By:
[2020-11-17 16:38] LABS: Ethanol < 10 mg/dL
[2020-11-17 16:42] LABS: Acetaminophen LAB < 1 mcg/mL (<30); Alanine Aminotransferase 30 U/L (0-40); Albumin Level 4.5 g/dL (3.5-5.0); Alkaline Phosphatase 198 U/L (39-117); Anion Gap 18 (12-20); Aspartate Amino Transferase 24 U/L (5-37); Bilirubin Total 1.3 mg/dL (0.0-1.0); Blood Urea Nitrogen 38 mg/dL (9-16); Calcium 9.7 mg/dL (8.4-10.2); Carbon Dioxide 23 mmol/L (22-29); Chloride 99 mmol/L (96-108); Creatinine Clr Calc Pharmacy 52.3; Estimated Glomerular Filt Rate 52; Glucose Random 144 mg/dL (60-115); Potassium 4.2 mmol/L (3.3-5.1); Salicylate < 5.0 mg/dL (15-30); Sodium 136 mmol/L (135-145); Total Protein 7.8 g/dL (6.5-8.0)
--- NOTE | 2020-11-17 17:24 | PM.IMHP ---
History of Present Illness Date of Service: 11/17/20 Chief Complaint: clonidine and wellbutrin overdose 65M with history of depression and suicidally, called EMS after taking 50 pills of 0.1mg clonidine and wellbutrin ?strength over last 36hours. he states that he is suicidal, although he took the medication to treat his depression more than an attempt to kill himself. he is unclear exactly how much he took, he reports last taking 5 pills at about 12pm on day of admission, and has been taking several every few hours. he reports this am feeling dizzy and falling down, he does have a large abrasion over right eye and bilateral knees. in ED EKG was unremarkable, BP and HR normal. poison control recommended admission and monitoring EKGs. Review of Systems Review of Systems: Constitutional: Denies fever, denies Chills Eyes: denies blurry vision ENT: denies sore throat CVS: denies chest pain Respiratory: Denies dyspnea GI: no abdominal pain : denies dysuria MSK: denies neck pain Skin: denies rash Neuro: denies specific motor weakness Psych: suicidal ideation Endocrine: denies heat/cold intoleratnce Hematologic: denies easy bleeding Allergy: denies hives [facility] Medical History Anemia Cognitive impairment Depression Diabetes HTN (hypertension) Hyperlipidemia Stroke Family history: reviewed and not pertinent Social History Alcohol intake: former Smoking Status: Former smoker Use of substances other than those prescribed or required for medical reasons: No Advance Directives: No Advance Directives Information Provided: No Meds Allergies Allergy/AdvReac Type Severity Reaction Status Date / Time No Known Drug Allergies Allergy Unknown NONE Unverified 04/08/20 17:00 [NO KNOWN DRUG ALLERGIES] Active Medications: Current Medications Generic Name Dose Route Start Last Admin Trade Name Freq PRN Reason Stop Dose Admin Pharmacy Consult 1 each 11/17/20 16:49 Consult Rx Perform Med Rec MISCELLANE ONCE PRN Consult order Home Medications Medication Instructions Recorded Confirmed Last Taken Type aspirin 1 tab PO DAILY 07/22/20 07/22/20 Unknown History atorvastatin 40 mg PO DAILY 07/22/20 07/22/20 Unknown History fexofenadine 1 tab PO DAILY 07/22/20 07/22/20 Unknown History folic acid 1 tab PO DAILY 07/22/20 07/22/20 Unknown History hydrochlorothiazide 1 tab PO DAILY 07/22/20 07/22/20 Unknown History ketoconazole 1 appl TOPICAL DAILY 07/22/20 07/22/20 Unknown History lisinopril 1 tab PO DAILY 07/22/20 07/22/20 Unknown History metformin 1 tab PO DAILY 07/22/20 07/22/20 Unknown History adalimumab [Humira(CF) Pen] 40 mg SUBCUT Q2W 11/17/20 Unknown History bupropion HCl 1 tab PO BID 11/17/20 Unknown History clonidine HCl 1 tab PO BID 11/17/20 Unknown History duloxetine 1 cap PO DAILY 11/17/20 Unknown History duloxetine 1 cap PO DAILY 11/17/20 Unknown History fluticasone propionate 1 spray INTRANASAL BID 11/17/20 Unknown History Physical Exam Vital Signs and Narrative: Vital Signs: Last Vital Signs Temp 98.2 F 11/17/20 15:55 Pulse 59 11/17/20 15:55 Resp 10 L 11/17/20 15:55 BP 100/59 L 11/17/20 15:55 Pulse Ox 94 11/17/20 15:55 Body Mass Index 25.8 General: no acute distress HEENT: abrasian over right eye Neck: normal to visual inspection CVS: S1, S2, RRR Resp: CTA bilateral Chest: non tender GI: soft, non tender, non distended : no CVA tenderness Skin: no rashes Extremities: bilateral knee abrasians Neuro: Oriented X3, grossly intact Psych: cooperative, reports suicidality Results Labs CBC and Chem 7: 11/17/20 16:07 11/17/20 16:07 Labs: Laboratory Results - last 24 hr 11/17/20 11/17/20 11/17/20 15:37 15:37 15:37 MCV Cancelled MCH Cancelled MCHC Cancelled RDW Cancelled Plt Count Cancelled MPV Cancelled Immature Gran % (Auto) Cancelled Neut % (Auto) Cancelled Lymph % (Auto) Cancelled [place] % (Auto) Cancelled Eos % (Auto) Cancelled Baso % (Auto) Cancelled Lymph # (Auto) Cancelled [place] # (Auto) Cancelled Eos # (Auto) Cancelled Baso # (Auto) Cancelled Abs Immat Gran (auto) Cancelled Absolute Neuts (auto) Cancelled Absolute Nucleated RBC Cancelled Nucleated RBC % (auto) Cancelled Smear Tech's Comments Cancelled Anion Gap Estim Creat Clear Calc Estimated GFR Random Glucose Calcium Total Bilirubin AST ALT Alkaline Phosphatase Total Protein Albumin Urine Color YELLOW Urine Appearance CLEAR Urine pH 6.0 Ur Specific [place] >= 1.030 H Urine Protein NEG Urine Glucose (UA) NEG Urine Ketones 5 Urine Blood TRACE Urine Nitrite NEG Ur Leukocyte Esterase NEG Urine RBC 0-2 Urine WBC 0 Ur Squamous Epith Cells TRACE Urine Bacteria TRACE Salicylates Urine Opiates Screen Not Detected Acetaminophen Ur Barbiturates Screen Not Detected Ur Phencyclidine Scrn Not Detected Ur Amphetamines Screen Not Detected U Benzodiazepines Scrn Not Detected Urine Cocaine Screen Not Detected U Marijuana (THC) Screen Not Detected Ethyl Alcohol 11/17/20 11/17/20 11/17/20 16:07 16:07 16:07 MCV 88.0 MCH 30.3 MCHC 34.5 RDW 12.3 Plt Count 275 MPV 9.7 Immature Gran % (Auto) 0.5 H Neut % (Auto) 83.6 H Lymph % (Auto) 7.0 L [place] % (Auto) 8.2 Eos % (Auto) 0.5 Baso % (Auto) 0.2 Lymph # (Auto) 1.2 [place] # (Auto) 1.4 H Eos # (Auto) 0.1 Baso # (Auto) 0.0 Abs Immat Gran (auto) 0.09 H Absolute Neuts (auto) 14.0 H Absolute Nucleated RBC 0.000 Nucleated RBC % (auto) 0.0 Smear Tech's Comments Anion Gap 18 Estim Creat Clear Calc 52.3 Estimated GFR 52 Random Glucose 144 H D Calcium 9.7 D Total Bilirubin 1.3 H AST 24 D ALT 30 Alkaline Phosphatase 198 H D Total Protein 7.8 Albumin 4.5 Urine Color Urine Appearance Urine pH Ur Specific [place] Urine Protein Urine Glucose (UA) Urine Ketones Urine Blood Urine Nitrite Ur Leukocyte Esterase Urine RBC Urine WBC Ur Squamous Epith Cells Urine Bacteria Salicylates < 5.0 L Urine Opiates Screen Acetaminophen < 1 Ur Barbiturates Screen Ur Phencyclidine Scrn Ur Amphetamines Screen U Benzodiazepines Scrn Urine Cocaine Screen U Marijuana (THC) Screen Ethyl Alcohol < 10 Assessment and Plan (1) Toxic encephalopathy: Status: Acute (2) Overdose: Status: Acute (3) Diabetes: Status: Acute 65M presented with report of clonidine and wellbutrin overdose with some AMS toxic encephaloapthy due to clonidine and wellbutrin overdose encephalopathy mild monitor EKGs q4h, specifically for QT (currently - 468) ivf for worsening ms can use naloxone, for severe bradycardia - atropine suicide precautions, BHN once medically cleared hold antihypertensives, pyschiatric meds DM hold metformin insulin
[2020-11-17 17:34] LABS: COVID-19 Test Negative (Negative); IDNOW Serial# 9DD0AD1C
[2020-11-17] MEDS: 0.9 % Sodium Chloride 1,000 ML 999 ML IVCONT ×2 (18:10→19:36)
--- NOTE | 2020-11-17 18:10 | PC.NURSE ---
Dr. Croft notified about patients BP
--- NOTE | 2020-11-17 18:10 | PC.NURSE ---
1L NS started per verbal order
--- NOTE | 2020-11-17 18:47 | PM.CCN ---
Critical Care Event Note Summary Date of Service: 11/17/20 Code activated: No Narrative: Called to see Mr. Sethi in the ED bec of hypotension 2? deliberate clonidine overdose. The patient is a 65M with history of depression and suicidally. He called EMS after reportedly taking 50 pills of 0.1mg clonidine and wellbutrin ?strength over last 36hours. He stated that he was suicidal, although he took the medication to treat his depression more than an attempt to kill himself. He was unclear exactly how much he took, he reported last taking 5 pills at about 12pm today, and had been taking several every few hours. He reported feeling dizzy this morning and falling down, he does have a large abrasion over right eye and bilateral knees. In ED at about 10am this morning, EKG was unremarkable, BP was initially 151/70, HR 89. The patient was admitted to medicine by Dr. Schreiber. But over the day, his BP declined progressively, and hit 60's this evening, with HR 50's. Therefore, Dr. Guan called me. I saw the patient in the ED. He's fully A&O, BP 90's, HR 70. Breathing easy with Sat 97% on room air. IMPRESSION: 1. Clonidine and Wellbutrin OD. 2. Hypotension 2? above 3. SI Will start dopamine for now, transfer to ICU for further monitoring and management. Critical care time: 40 min. Critical Care Time (minutes): 40
[2020-11-17] MEDS: DOPamine HCL/D5W 400 MG/250 ML PLAST..BAG 14.46 MG IVCONT (18:52)
[2020-11-17] MEDS: Bacitracin Oint 14 GM TUBE 1 APPL TOPICAL (18:52)
--- NOTE | 2020-11-17 19:02 | MHC.CARE ---
CARE Team receives consult siting suicide attempt. CARE Team speaks with JENISE Chase. Pt is not medically cleared at this time and is being medically admitted. Due to insurance ([employer], [employer]) pt should be referred to [facility] once medically cleared and ready for potential placement. If [facility] is not able to see pt, please re-consult CARE Team via fax, and also call CARE Team at [phone].
--- NOTE | 2020-11-17 19:11 | PC.NURSE ---
dr mckeon notified about poison control request of additional labs of mag, phos, calcium and cpk.
--- NOTE | 2020-11-17 19:12 | PC.NURSE ---
per verbal request of dr. mckeon, dopamine to be decreased to 3 mcg/kg/min, this nurse has changed the dosage per verbal request
[2020-11-17 19:38] LABS: Magnesium 2.1 mg/dL (1.6-2.6); Phosphorus 3.3 mg/dL (2.7-4.5)
--- NOTE | 2020-11-17 19:38 | PC.NURSE ---
patient wakes to verbal stimulus, repeat ekg was performed, campus monitor sinus bruce 50s, vss, dopamine at 3 mcgt/kg/min, second liter of ns running per order, will continue to monitor.
--- NOTE | 2020-11-17 19:42 | PC.NURSE ---
attempted to call floor with report, nursing staff has not yet gotten to the unit, they will have them call when she gets to the floor
--- NOTE | 2020-11-17 19:45 | PC.NURSE ---
pt stated so I am still alive, if I take more of that stuff I would right? this nurse spoke with the patient about his SI and that his blood pressure indeed had been very low due to the medication he took.
--- NOTE | 2020-11-17 20:02 | PC.NURSE ---
report given to icu
[2020-11-17] MEDS: 0.9 % Sodium Chloride 1,000 ML 100 ML IVCONT (22:55)
--- NOTE | 2020-11-17 23:44 | PC.NURSE ---
CARE ASSUMED 23;15...NAPPING INTERMITTANTLY..EASILY AROUSED...ALERT..ORIENTED X3...SPEECH SLOW BUT CLEAR..FLAT AFFECT...PUPILS EQUAL/REACTIVE....MONITOR S.NAVNEET HR 46-50 ASLEEP/HR 60'S-70'S AWAKE...DOPAMINE 3 MCG/KG/MIN & NS 0.9% 100 CC/HR VIA 320 ANGIO RIGHT WRIST...IV WITH GOOD BLOOD RETURN...VOIDED SMALL AMOUNT YELLOW URINE....ABRASIONS TO RIGHT FOREHEAD AND BILATERAL KNEES COVERED WITH BANDAIDS...BANDAIDS DRY/INTACT...1:1 SITTER AT BEDSIDE..CALM AND CO-OPERATIVE AT PRESENT...STATED I SHOULD HAVE TAKEN ALL THE PILLS AT ONCE SO I WOULDN'T BE HERE
[2020-11-18] VITALS (31 sets, daily range): BP systolic 70–126; BP diastolic 40–73; PULSE 48–98; RESP 11–22; TEMP 36.6–37.1; O2SAT 93–97
[2020-11-18 05:46] LABS: Basophils Absolute Auto 0.1 X10*3/uL (0.0-0.2); Basophils Percent Auto 0.5 % (0-2); Eosinophils Absolute Auto 0.3 X10*3/uL (0.0-0.4); Eosinophils Percent Auto 2.5 % (0-4); Hematocrit 44.1 % (42-52); Hemoglobin 15.1 g/dl (14.0-18.0); Imm Gran Abs Auto 0.06 X10*3/uL (0.00-0.03); Imm Gran Pct Auto 0.5 % (0.0-0.4); MANUAL DIFF FLAG SCAN; Mean Corpuscular HGB Conc 34.2 g/dl (31.0-36.0); Mean Corpuscular Hemoglobin 31.3 pg (27.0-33.0); Mean Corpuscular Volume 91.3 fL (80-98); Monocytes Absolute Auto 1.6 X10*3/uL (0.1-1.2); Monocytes Percent Auto 12.1 % (2-11); Neutrophils Absolute Auto 9.1 X10*3/uL (2.0-8.3); Neutrophils Percent Auto 69.4 % (45-73); Platelet Count 234 X10*3/uL (160-400); Red Blood Count 4.83 X10*6/uL (4.60-5.80); Red Cell Distribution Width 12.6 % (11.0-16.0); SCAN SMEAR FLAG 1; White Blood Count 13.1 X10*3/uL (4.8-10.8)
[2020-11-18 06:33] LABS: Alanine Aminotransferase 26 U/L (0-40); Albumin Level 3.8 g/dL (3.5-5.0); Alkaline Phosphatase 158 U/L (39-117); Anion Gap 16 (12-20); Aspartate Amino Transferase 22 U/L (5-37); Bilirubin Total 1.3 mg/dL (0.0-1.0); Blood Urea Nitrogen 32 mg/dL (9-16); Calcium 8.7 mg/dL (8.4-10.2); Carbon Dioxide 22 mmol/L (22-29); Chloride 104 mmol/L (96-108); Creatinine Clr Calc Pharmacy 84.9; Estimated Glomerular Filt Rate > 60; Glucose Random 124 mg/dL (60-115); Potassium 3.8 mmol/L (3.3-5.1); Sodium 138 mmol/L (135-145); Total Protein 6.5 g/dL (6.5-8.0)
[2020-11-18 06:48] LABS: SLIDE REVIEW VERIFIED
--- NOTE | 2020-11-18 10:18 | P.PNCC_ITS ---
Subjective Subjective Date of Service: 11/18/20 Interval History: Mr. Sethi was admitted to ICU last night bec of hypotension, after presenting to the ED with a clonidine & Wellbutrin overdose, and becoming hypotensive in the ED. The patient is a 65M with history of depression and suicidality. He called EMS yesterday morning after reportedly taking 50 or 60 pills of 0.1mg clonidine and wellbutrin (?strength) over 36hours. He stated that he was suicidal, although he took the medication to treat his depression more than an attempt to kill himself. He was unclear exactly how much he took, he reported last taking 5 pills at about 12pm yesterday, and had been taking several every few hours. He reported feeling dizzy and falling down, he did have a large abrasion over the right eye and bilateral knees. In ED at arrival about 10am yesterday morning, EKG was unremarkable, BP was initially 151/70, HR 89. The patient was admitted to medicine by Dr. Schreiber. But over the day, while still in the ED, his BP declined progressively, and hit 60's in the evening, with HR 50's. Therefore, Dr. Guan called me. I saw the patient in the ED. He was fully A&O, BP 90's, HR 70. Breathing easy with Sat 97% on room air. We started him on dopamine and transferred him ICU. Overnite he?s been on dopamine at 3ug. This morning he?s fully A&O, altho I wouldn?t consider his mental thought processes as fully normal; he seems a little disconnected from reality. Regardless, his MS is the same as when I saw him last night in the ED. Breathing easy with Sat 97% on RA. HR 67, BP 110/47. Afebrile. No JVD. Abdomen benign. No edema. LABORATORY DATA: Below. Notably, white count is coming down, BUN/creatinine is 32/0.8 (compared with 38/1.3 yesterday), T bili is 1.3 (unchanged), alk-phos and CPK are down slightly from yesterday. IMPRESSION: 1. Clonidine and Wellbutrin OD. 2. Hypotension 2? above 3. SI We turned the dopamine down to 1.5 mcg. Hopefully will be able to discontinue later today and then transfer to regular room. He has a sitter for suicide watch. Critical care time: 45 min. Physical Exam Vital Signs: Vital Signs: Last Vital Signs Temp 98.0 F 11/18/20 08:45 Pulse 67 11/18/20 10:00 Resp 22 H 11/18/20 10:00 BP 110/47 L 11/18/20 10:00 Pulse Ox 95 11/18/20 10:00 Body Mass Index 25.8 Objective Data Labs CBC & Chem 7: 11/18/20 05:22 11/18/20 05:22 Labs: Laboratory Results - last 24 hr 11/17/20 11/17/20 11/17/20 15:37 15:37 15:37 WBC Cancelled RBC Cancelled Hgb Cancelled Hct Cancelled MCV Cancelled MCH Cancelled MCHC Cancelled RDW Cancelled Plt Count Cancelled MPV Cancelled Immature Gran % (Auto) Cancelled Neut % (Auto) Cancelled Lymph % (Auto) Cancelled Stanley % (Auto) Cancelled Eos % (Auto) Cancelled Baso % (Auto) Cancelled Lymph # (Auto) Cancelled Stanley # (Auto) Cancelled Eos # (Auto) Cancelled Baso # (Auto) Cancelled Abs Immat Gran (auto) Cancelled Absolute Neuts (auto) Cancelled Absolute Nucleated RBC Cancelled Nucleated RBC % (auto) Cancelled Smear Tech's Comments Cancelled Sodium Potassium Chloride Carbon Dioxide Anion Gap BUN Creatinine Estim Creat Clear Calc Estimated GFR Random Glucose Calcium Phosphorus Magnesium Total Bilirubin AST ALT Alkaline Phosphatase Total Creatine Kinase Total Protein Albumin Urine Color YELLOW Urine Appearance CLEAR Urine pH 6.0 Ur Specific Worth >= 1.030 H Urine Protein NEG Urine Glucose (UA) NEG Urine Ketones 5 Urine Blood TRACE Urine Nitrite NEG Ur Leukocyte Esterase NEG Urine RBC 0-2 Urine WBC 0 Ur Squamous Epith Cells TRACE Urine Bacteria TRACE Salicylates Urine Opiates Screen Not Detected Acetaminophen Ur Barbiturates Screen Not Detected Ur Phencyclidine Scrn Not Detected Ur Amphetamines Screen Not Detected U Benzodiazepines Scrn Not Detected Urine Cocaine Screen Not Detected U Marijuana (THC) Screen Not Detected Ethyl Alcohol COVID-19 (BRET) COVID-19 Clin Com 11/17/20 11/17/20 11/17/20 16:07 16:07 16:07 WBC 16.7 H RBC 5.67 Hgb 17.2 Hct 49.9 MCV 88.0 MCH 30.3 MCHC 34.5 RDW 12.3 Plt Count 275 MPV 9.7 Immature Gran % (Auto) 0.5 H Neut % (Auto) 83.6 H Lymph % (Auto) 7.0 L Stanley % (Auto) 8.2 Eos % (Auto) 0.5 Baso % (Auto) 0.2 Lymph # (Auto) 1.2 Stanley # (Auto) 1.4 H Eos # (Auto) 0.1 Baso # (Auto) 0.0 Abs Immat Gran (auto) 0.09 H Absolute Neuts (auto) 14.0 H Absolute Nucleated RBC 0.000 Nucleated RBC % (auto) 0.0 Smear Tech's Comments Sodium 136 Potassium 4.2 Chloride 99 Carbon Dioxide 23 Anion Gap 18 BUN 38 H D Creatinine 1.38 Estim Creat Clear Calc 52.3 Estimated GFR 52 Random Glucose 144 H D Calcium 9.7 D Phosphorus 3.3 Magnesium 2.1 Total Bilirubin 1.3 H AST 24 D ALT 30 Alkaline Phosphatase 198 H D Total Creatine Kinase 219 H Total Protein 7.8 Albumin 4.5 Urine Color Urine Appearance Urine pH Ur Specific Worth Urine Protein Urine Glucose (UA) Urine Ketones Urine Blood Urine Nitrite Ur Leukocyte Esterase Urine RBC Urine WBC Ur Squamous Epith Cells Urine Bacteria Salicylates < 5.0 L Urine Opiates Screen Acetaminophen < 1 Ur Barbiturates Screen Ur Phencyclidine Scrn Ur Amphetamines Screen U Benzodiazepines Scrn Urine Cocaine Screen U Marijuana (THC) Screen Ethyl Alcohol < 10 COVID-19 (BRET) COVID-19 Clin Com 11/17/20 11/18/20 11/18/20 17:00 05:22 05:22 WBC 13.1 H RBC 4.83 Hgb 15.1 Hct 44.1 MCV 91.3 MCH 31.3 MCHC 34.2 RDW 12.6 Plt Count 234 MPV 10.0 Immature Gran % (Auto) 0.5 H Neut % (Auto) 69.4 Lymph % (Auto) 15.0 L Stanley % (Auto) 12.1 H Eos % (Auto) 2.5 Baso % (Auto) 0.5 Lymph # (Auto) 2.0 Stanley # (Auto) 1.6 H Eos # (Auto) 0.3 Baso # (Auto) 0.1 Abs Immat Gran (auto) 0.06 H Absolute Neuts (auto) 9.1 H Absolute Nucleated RBC 0.000 Nucleated RBC % (auto) 0.0 Smear Tech's Comments VERIFIED Sodium 138 Potassium 3.8 Chloride 104 Carbon Dioxide 22 Anion Gap 16 BUN 32 H Creatinine 0.85 Estim Creat Clear Calc 84.9 Estimated GFR > 60 Random Glucose 124 H Calcium 8.7 D Phosphorus Magnesium Total Bilirubin 1.3 H AST 22 ALT 26 Alkaline Phosphatase 158 H D Total Creatine Kinase 208 H Total Protein 6.5 Albumin 3.8 Urine Color Urine Appearance Urine pH Ur Specific Worth Urine Protein Urine Glucose (UA) Urine Ketones Urine Blood Urine Nitrite Ur Leukocyte Esterase Urine RBC Urine WBC Ur Squamous Epith Cells Urine Bacteria Salicylates Urine Opiates Screen Acetaminophen Ur Barbiturates Screen Ur Phencyclidine Scrn Ur Amphetamines Screen U Benzodiazepines Scrn Urine Cocaine Screen U Marijuana (THC) Screen Ethyl Alcohol COVID-19 (BRET) Negative COVID-19 Clin Com See Note Critical Care Time Critical Care Time (minutes): 60
--- NOTE | 2020-11-18 10:21 | PC.NURSE ---
dopamine gtt infusing at 1.5 mcg/kg/min. Dr. mckeon was hoping to shut off dopamine gtt to monitor BP off med. BP checked prior 86/43. will keep dopamine at 1.5mcg/kg/min
--- NOTE | 2020-11-18 13:02 | PC.NURSE ---
12:05--patients BR dropped to 70/40. dopamine gtt still at 1.5mcg/kg/min. Dr mckeon aware. Dopamine increased to 3.0 mcg/kg/hour
[2020-11-18] MEDS: DOPamine HCL/D5W 400 MG/250 ML PLAST..BAG 8.68 MG IVCONT (13:35)
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
--- NOTE | 2020-11-18 15:36 | PC.NURSE ---
patient hadn't voided today. voiced concern to patient who does not feel like I have to go . Stood at bedside to void. only 75cc clear yellow urine. Bladder scanned for 900+. tolerating po fluids well. 400cc h2o taken in at this time. Discussed with Dr. Azar. will give patient 1 hour to void; if unable, will straight cath.
--- NOTE | 2020-11-18 16:46 | PC.NURSE ---
1645: patient voided only 75 cc clear yellow urine. Patient straight cath's per Dr. Carty request utilizing sterile technique. 1300cc immediate urine drained. notified of straight cath results pt tolerated well
[2020-11-18 21:17] LABS: Glucose, Whole Blood 122 mg/dL (60-115)
[2020-11-18] MEDS: Tamsulosin HCL 0.4 MG CAPSULE PO (21:22)
--- NOTE | 2020-11-18 22:50 | PC.NURSE ---
PT HAVING DIFFICULTY URINATING. WAS STRAIGHT CATHED AT 1645 FOR 1300 ML. ATTEMPTED TO USE URINOL WITH NO SUCCESS X2. THIRD TRY HE STOOL AT EDGE OF BED AND WAS ABLE TO VOID 150 ML CLEAR YELLOW URINE. BLADDER WAS SCANNED POST VOID FOR >1000 ML. VILMA ESCAMILLA INFORMED AND ORDERED FOR PT TO BE STRAIGHT CATHED WHICH WAS DONE AT 2230 FOR A TOTAL OF 1300 ML CLEAR YELLOW URINE. PT TOLERATED PROCEDURE WELL. NO DIFFICULTY INSERTING CATHETER. SMALL AMOUNT OF BLOODY SHREDS OBSERVED ON CATH UPON REMOVAL. SYSTOLLIC BP 100-120'S. MONITOR SHOWS NSR, HR 70-80'S, RARE PVC NOTED. 1:1 SITTER AT BEDSIDE. PT DENIES SUICIDAL TENDENCIES AT THIS TIME.
[2020-11-19] VITALS (15 sets, daily range): BP systolic 86–148; BP diastolic 47–80; PULSE 68–97; RESP 14–25; TEMP 36.6–37.3; O2SAT 92–99
[2020-11-19] MEDS: Melatonin 3 MG TABLET 6 MG PO (00:47)
[2020-11-19 05:50] LABS: MANUAL DIFF FLAG NO
[2020-11-19 05:56] LABS: Basophils Absolute Auto 0.1 X10*3/uL (0.0-0.2); Basophils Percent Auto 0.4 % (0-2); Eosinophils Absolute Auto 0.5 X10*3/uL (0.0-0.4); Eosinophils Percent Auto 4.1 % (0-4); Hematocrit 40.3 % (42-52); Hemoglobin 13.6 g/dl (14.0-18.0); Imm Gran Abs Auto 0.06 X10*3/uL (0.00-0.03); Imm Gran Pct Auto 0.5 % (0.0-0.4); Lymphocytes Absolute Auto 2.4 X10*3/uL (1.2-4.9); Lymphocytes Percent Auto 19.2 % (20-40); Mean Corpuscular HGB Conc 33.7 g/dl (31.0-36.0); Mean Corpuscular Hemoglobin 30.1 pg (27.0-33.0); Mean Corpuscular Volume 89.2 fL (80-98); Monocytes Absolute Auto 1.4 X10*3/uL (0.1-1.2); Monocytes Percent Auto 11.4 % (2-11); Neutrophils Absolute Auto 7.9 X10*3/uL (2.0-8.3); Neutrophils Percent Auto 64.4 % (45-73); Platelet Count 205 X10*3/uL (160-400); Red Blood Count 4.52 X10*6/uL (4.60-5.80); Red Cell Distribution Width 12.5 % (11.0-16.0); White Blood Count 12.3 X10*3/uL (4.8-10.8)
--- NOTE | 2020-11-19 06:13 | PC.NURSE ---
Assumed care of this patient as a transfer from the ICU- Patient is a 1:1 with a sitter due to intentional overdose with suicidal ideation. Patient was transferred to the telemetry floor in a hospital bed in [facility]. At the time of arrival to his room on the telemetry floor, his belongings were confiscated, labeled and brought down to security per hospital policy. Patient educated on this and agreeable to the plan of care. Phone numbers taken from the patients personal phone per request and are at the patients bedside with instructions that he is able to use the provided hospital phone with staff monitoring. Patient alert and oriented, agreeable to the plan of care and has no comments or concerns at this time.
[2020-11-19 06:28] LABS: Alanine Aminotransferase 21 U/L (0-40); Albumin Level 3.5 g/dL (3.5-5.0); Alkaline Phosphatase 147 U/L (39-117); Anion Gap 16 (12-20); Aspartate Amino Transferase 21 U/L (5-37); Bilirubin Total 1.3 mg/dL (0.0-1.0); Blood Urea Nitrogen 32 mg/dL (9-16); Calcium 8.4 mg/dL (8.4-10.2); Carbon Dioxide 19 mmol/L (22-29); Chloride 105 mmol/L (96-108); Creatinine Clr Calc Pharmacy 72.2; Estimated Glomerular Filt Rate > 60; Glucose Random 115 mg/dL (60-115); Potassium 3.9 mmol/L (3.3-5.1); Sodium 136 mmol/L (135-145); Total Protein 6.2 g/dL (6.5-8.0)
--- NOTE | 2020-11-19 11:36 | HO.PM.IMPN ---
Subjective Subjective Date of Service: 11/19/20 Interval History: body aches Cardiovascular Cardiovascular: Reports no additional cardiovascular complaints Respiratory Respiratory: Reports no additional respiratory complaints Physical Exam Vital Signs: Vital Signs: Last Vital Signs Temp 98 F 11/19/20 05:53 Pulse 80 11/19/20 08:00 Resp 17 11/19/20 08:00 BP 96/57 L 11/19/20 08:00 Pulse Ox 96 11/19/20 08:00 Body Mass Index 25.8 General: AO X 3, no acute distress Resp: CTA bilateral CVS: S1,S2,RRR GI: soft, non tender, non distended Neuro: motor grossly intact Psych: appropriate affect Objective Data Current Medications Generic Name Dose Route Start Last Admin Trade Name Freq PRN Reason Stop Dose Admin Pharmacy Consult 1 each 11/17/20 16:49 Consult Rx Perform Med Rec MISCELLANE ONCE PRN Consult order Labs CBC & Chem 7: 11/19/20 05:41 11/19/20 05:41 Assessment and Plan (1) Overdose: Status: Acute Assessment and Plan: 65M presented with clonidine and wellbutrine overdose complicated by hypotension requiring transfer to ICU for dopamine infusion. dopamine was discontinued last night, bp remaining low-normal intentional clonidine/wellbutrin overdose monitor off dopamine keep on tele if stable likely medically clear tomorrow for bhn/care team alessio MICHELLE poc metformin
--- NOTE | 2020-11-19 11:58 | MHC.CM.PN ---
Patient has been medically cleared by MD. Awaiting care team and N consult for possible psych placement. CM will continue to follow patient for discharge needs.
--- NOTE | 2020-11-19 14:40 | PC.NURSE ---
Patient voiding small amounts, last void was 25ml. Patient expressed feeling of needing to void. Bladder scan was 958ml. MD made aware. Order for straight catheter placed. Patient straight catheterized for 1000mls. Due to void by 1900. Will continue to monitor output and bladder scans.
[2020-11-19 16:46] LABS: Glucose, Whole Blood 146 mg/dL (60-115)
[2020-11-19 19:56] LABS: Glucose, Whole Blood 142 mg/dL (60-115)
[2020-11-20] VITALS (7 sets, daily range): BP systolic 145–166; BP diastolic 71–76; PULSE 77–84; RESP 14–20; TEMP 36.1–37.1; O2SAT 96–99
[2020-11-20 00:11] LABS: Glucose, Whole Blood 80 mg/dL (60-115)
[2020-11-20 07:22] LABS: Glucose, Whole Blood 105 mg/dL (60-115)
[2020-11-20] MEDS: metFORMIN HCl ER 500 MG TAB.ER.24H PO (08:32)
--- NOTE | 2020-11-20 09:21 | HO.PM.IMPN ---
Subjective Subjective Date of Service: 11/20/20 Interval History: body aches, depressed Cardiovascular Cardiovascular: Reports no additional cardiovascular complaints Respiratory Respiratory: Reports no additional respiratory complaints Physical Exam Vital Signs: Vital Signs: Last Vital Signs Temp 97.8 F 11/20/20 07:46 Pulse 84 11/20/20 07:46 Resp 20 11/20/20 07:46 BP 166/76 H 11/20/20 07:46 Pulse Ox 96 11/20/20 07:46 Body Mass Index 25.8 General: AO X 3, no acute distress, abrasian over right eye Resp: CTA bilateral CVS: S1,S2,RRR GI: soft, non tender, non distended Neuro: motor grossly intact Psych: appropriate affect Objective Data Current Medications Generic Name Dose Route Start Last Admin Trade Name Freq PRN Reason Stop Dose Admin Metformin HCl 500 mg 11/20/20 09:00 11/20/20 08:32 Metformin Hcl Er 500 Mg Tab.Er.24h PO 500 mg DAILY ABDON Administration Pharmacy Consult 1 each 11/17/20 16:49 Consult Rx Perform Med Rec MISCELLANE ONCE PRN Consult order Labs CBC & Chem 7: 11/19/20 05:41 11/19/20 05:41 Assessment and Plan (1) Overdose: Status: Acute Assessment and Plan: 65M presented with clonidine and wellbutrine overdose complicated by hypotension requiring transfer to ICU for dopamine infusion. dopamine was discontinued, patient downgraded to medical floor 11/18/20, bp now normal intentional clonidine/wellbutrin overdose BP improved, will medically clear for BHN eval urinary retention required severeal straight catheterizations, switched to indwelling as patient started to have some hematuria from the trauma TOV once ambulatory, will add flomax DM poc metformin
[2020-11-20] MEDS: Tamsulosin HCL 0.4 MG CAPSULE PO (09:56)
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
[2020-11-20 11:28] LABS: Glucose, Whole Blood 134 mg/dL (60-115)
[2020-11-20 16:21] LABS: Glucose, Whole Blood 129 mg/dL (60-115)
[2020-11-20 20:23] LABS: Glucose, Whole Blood 134 mg/dL (60-115)
[2020-11-21 03:32] VITALS: BP 154/77; PULSE 82; RESP 18; TEMP 36.9; O2SAT 97
[2020-11-21 06:52] VITALS: BP 174/84; PULSE 65; RESP 18; TEMP 36.9; O2SAT 95
[2020-11-21] MEDS: metFORMIN HCl ER 500 MG TAB.ER.24H PO (09:08)
[2020-11-21] MEDS: hydroCHLOROthiazide 25 MG TABLET PO (09:08)
[2020-11-21 09:09] VITALS: BP 174/84; PULSE 65
[2020-11-21] MEDS: lisinopriL 10 MG TABLET PO (09:09)
--- NOTE | 2020-11-21 09:44 | HO.PM.IMPN ---
Subjective Subjective Date of Service: 11/21/20 Interval History: no complaints Cardiovascular Cardiovascular: Reports no additional cardiovascular complaints Respiratory Respiratory: Reports no additional respiratory complaints Physical Exam Vital Signs: Vital Signs: Last Vital Signs Temp 98.5 F 11/21/20 06:52 Pulse 65 11/21/20 09:09 Resp 18 11/21/20 06:52 BP 174/84 H 11/21/20 09:09 Pulse Ox 95 11/21/20 06:52 Body Mass Index 25.8 General: AO X 3, no acute distress, abrasian over right eye Resp: CTA bilateral CVS: S1,S2,RRR GI: soft, non tender, non distended Neuro: motor grossly intact Psych: appropriate affect Objective Data Current Medications Generic Name Dose Route Start Last Admin Trade Name Freq PRN Reason Stop Dose Admin Clonidine HCl 0.1 mg 11/21/20 09:00 11/21/20 09:09 Clonidine Hcl 0.1 Mg Tablet PO Not Given BID [facility] Protocol Hydrochlorothiazide 25 mg 11/21/20 09:00 11/21/20 09:08 Hydrochlorothiazide 25 Mg Tablet PO 25 mg DAILY ABDON Administration Protocol Lisinopril 10 mg 11/21/20 09:00 11/21/20 09:09 Lisinopril 10 Mg Tablet PO 10 mg DAILY ABDON Administration Protocol Metformin HCl 500 mg 11/20/20 09:00 11/21/20 09:08 Metformin Hcl Er 500 Mg Tab.Er.24h PO 500 mg DAILY [facility] Administration Pharmacy Consult 1 each 11/17/20 16:49 Consult Rx Perform Med Rec MISCELLANE ONCE PRN Consult order Tamsulosin HCl 0.4 mg 11/21/20 17:30 Tamsulosin Hcl 0.4 Mg Capsule PO DAILY@1730 [facility] Labs CBC & Chem 7: 11/19/20 05:41 11/19/20 05:41 Assessment and Plan (1) Overdose: Status: Acute Assessment and Plan: 65M presented with clonidine and wellbutrine overdose complicated by hypotension requiring transfer to ICU for dopamine infusion. dopamine was discontinued, patient downgraded to medical floor 11/18/20, bp now normal intentional clonidine/wellbutrin overdose resolved awaiting inpatient [facility] bed placement HTN will restart clonidine and lisinopril urinary retention required severeal straight catheterizations, switched to indwelling as patient started to have some hematuria from the trauma TOV once ambulatory, added flomax DM poc metformin
[2020-11-21 10:40] LABS: Glucose, Whole Blood 162 mg/dL (60-115)
[2020-11-21 10:48] VITALS: BP 138/69; PULSE 84; RESP 18; O2SAT 94
[2020-11-21 11:44] LABS: Glucose, Whole Blood 127 mg/dL (60-115)
[2020-11-21 15:05] VITALS: BP 131/70; PULSE 92; RESP 16; O2SAT 97
[2020-11-21 16:35] LABS: Glucose, Whole Blood 155 mg/dL (60-115)
[2020-11-21] MEDS: Tamsulosin HCL 0.4 MG CAPSULE PO (17:26)
[2020-11-21 19:32] LABS: Glucose, Whole Blood 159 mg/dL (60-115)
[2020-11-21 19:44] VITALS: BP 124/69; PULSE 104; TEMP 36.8; O2SAT 95
[2020-11-21] MEDS: Acetaminophen 325 MG TABLET 650 MG PO (21:04)
[2020-11-22] VITALS: BP 119/71; PULSE 81; TEMP 37; O2SAT 96
[2020-11-22 04:00] VITALS: BP 126/63; PULSE 70; TEMP 36.7; O2SAT 97
[2020-11-22] MEDS: Acetaminophen 325 MG TABLET 650 MG PO ×3 (04:54→19:48)
[2020-11-22 06:57] VITALS: BP 145/75; PULSE 78; RESP 18; TEMP 36.5; O2SAT 97
[2020-11-22 07:34] LABS: Glucose, Whole Blood 98 mg/dL (60-115)
[2020-11-22] MEDS: hydroCHLOROthiazide 25 MG TABLET PO (08:16)
[2020-11-22] MEDS: lisinopriL 10 MG TABLET PO (08:16)
[2020-11-22] MEDS: metFORMIN HCl ER 500 MG TAB.ER.24H PO (08:16)
--- NOTE | 2020-11-22 09:31 | P.PNIM_ITS ---
Subjective Subjective Date of Service: 11/22/20 Interval History: depression Cardiovascular Cardiovascular: Reports no additional cardiovascular complaints Gastrointestinal Gastrointestinal: Reports no additional gastrointestinal complaints Physical Exam Vital Signs: Vital Signs: Last Vital Signs Temp 97.7 F 11/22/20 06:57 Pulse 78 11/22/20 06:57 Resp 18 11/22/20 06:57 BP 145/75 H 11/22/20 06:57 Pulse Ox 97 11/22/20 06:57 Body Mass Index 25.8 General: AO X 3, no acute distress, abrasian over right eye Resp: CTA bilateral CVS: S1,S2,RRR GI: soft, non tender, non distended Neuro: motor grossly intact Psych: appropriate affect Objective Data Current Medications Generic Name Dose Route Start Last Admin Trade Name Freq PRN Reason Stop Dose Admin Acetaminophen 650 mg 11/22/20 08:41 Acetaminophen 325 Mg Tablet PO Q6H PRN Pain, Mild (Pain Scale 1-3) Clonidine HCl 0.1 mg 11/21/20 09:00 11/22/20 08:15 Clonidine Hcl 0.1 Mg Tablet PO Not Given BID [facility] Protocol Hydrochlorothiazide 25 mg 11/21/20 09:00 11/22/20 08:16 Hydrochlorothiazide 25 Mg Tablet PO 25 mg DAILY ABDON Administration Protocol Lisinopril 10 mg 11/21/20 09:00 11/22/20 08:16 Lisinopril 10 Mg Tablet PO 10 mg DAILY ABDON Administration Protocol Metformin HCl 500 mg 11/20/20 09:00 11/22/20 08:16 Metformin Hcl Er 500 Mg Tab.Er.24h PO 500 mg DAILY [facility] Administration Pharmacy Consult 1 each 11/17/20 16:49 Consult Rx Perform Med Rec MISCELLANE ONCE PRN Consult order Tamsulosin HCl 0.4 mg 11/21/20 17:30 11/21/20 17:26 Tamsulosin Hcl 0.4 Mg Capsule PO 0.4 mg DAILY@1730 [facility] Administration Labs CBC & Chem 7: 11/19/20 05:41 11/19/20 05:41 Assessment and Plan (1) Overdose: Status: Acute Assessment and Plan: 65M presented with clonidine and wellbutrine overdose complicated by hypotension requiring transfer to ICU for dopamine infusion. dopamine was discontinued, patient downgraded to medical floor 11/18/20, bp now normal intentional clonidine/wellbutrin overdose resolved medically cleared, awaiting inpatient [facility] bed placement HTN restarted clonidine and lisinopril urinary retention required several straight catheterizations, switched to indwelling as patient started to have some hematuria from the trauma TOV once ambulatory, added flomax DM poc metformin
[2020-11-22 11:33] LABS: Glucose, Whole Blood 124 mg/dL (60-115)
[2020-11-22 12:00] VITALS: BP 139/66; PULSE 75; RESP 18; TEMP 36.8; O2SAT 95
--- NOTE | 2020-11-22 13:56 | MHC.CM.PN ---
CM called and spoke to Della in [facility] who reports they are actively looking for inpatient psych bed. Patient will need BLS transport. CM will continue to follow patient for discharge needs.
[2020-11-22 16:00] VITALS: BP 99/55; PULSE 67; RESP 20; TEMP 36.4; O2SAT 97
[2020-11-22] MEDS: Tamsulosin HCL 0.4 MG CAPSULE PO (17:38)
[2020-11-22 19:06] VITALS: BP 113/64; PULSE 92; RESP 20; TEMP 36.6; O2SAT 94
[2020-11-23] VITALS: BP 112/64; PULSE 18; RESP 18; TEMP 37; O2SAT 97
[2020-11-23 02:58] VITALS: BP 127/58; PULSE 63; RESP 18; TEMP 36.5; O2SAT 98
[2020-11-23 07:22] LABS: Glucose, Whole Blood 91 mg/dL (60-115)
[2020-11-23 07:56] VITALS: BP 125/59; PULSE 70; RESP 17; TEMP 36.8; O2SAT 94
[2020-11-23] MEDS: metFORMIN HCl ER 500 MG TAB.ER.24H PO (08:28)
[2020-11-23] MEDS: hydroCHLOROthiazide 25 MG TABLET PO (08:28)
[2020-11-23] MEDS: lisinopriL 10 MG TABLET PO (08:28)
[2020-11-23] MEDS: Acetaminophen 325 MG TABLET 650 MG PO ×2 (08:30→16:03)
[2020-11-23 11:46] VITALS: BP 118/56; PULSE 72; RESP 16; TEMP 36.7; O2SAT 93
--- NOTE | 2020-11-23 12:23 | PM.DS ---
DS: Providers Provider Date of Service: 11/23/20 Date of admission: 11/17/20 19:27 Primary care physician: Demetrius Flanagan MD Consults: 11/17/20 16:29 Consult to Care Team Stat Comment: Reason for consultation: suicide attempt, section 12 11/20/20 07:58 Consult to Care Team Routine Comment: Reason for consultation: suicide attempt Consult to Crisis Stat Reason for consultation: sucide attempt DS: Diagnosis Discharge Diagnosis (1) Overdose: Status: Acute (2) Toxic encephalopathy: Status: Acute (3) Hypotension: Status: Acute (4) Urinary retention: Status: Acute (5) Diabetes: Status: Acute DS: Medications Discharge Medications Home Medications: Home Medications Medication Instructions Recorded Confirmed aspirin 1 tab PO DAILY 07/22/20 11/17/20 atorvastatin 40 mg PO DAILY 07/22/20 11/17/20 folic acid 1 tab PO DAILY 07/22/20 11/17/20 hydrochlorothiazide 1 tab PO DAILY 07/22/20 11/17/20 ketoconazole 1 appl TOPICAL DAILY 07/22/20 11/17/20 lisinopril 1 tab PO DAILY 07/22/20 11/17/20 metformin 1 tab PO DAILY 07/22/20 11/17/20 Humira(CF) Pen 40 mg SUBCUT Q2W 11/17/20 11/17/20 bupropion HCl 1 tab PO BID 11/17/20 11/17/20 clonidine HCl 1 tab PO BID 11/17/20 11/17/20 duloxetine 1 cap PO DAILY 11/17/20 11/17/20 duloxetine 1 cap PO DAILY 11/17/20 11/17/20 fluticasone propionate 1 spray INTRANASAL BID 11/17/20 11/17/20 Previous Rx's Medication Instructions Recorded tamsulosin 0.4 mg PO DAILY@1730 #0 cap 11/23/20 DS: Summary Hospital Course Hospital Course: patient was admitted for toxic encephalopathy and hypotension due to clonidine and wellbutrin intentional overdose. he was transfered to ICU for dopamine infusion. eventually, able to be taken off and mental status and blood pressure returned to normal. his antihypertensives were restarted. course was complicated by urinary retention. flomax was started and evans was inserted. trial of voiding should be done once patient is more ambulatory. patient was evaluated by [facility] and felt that he would benefit from inpatient psychiatry admission. Time Spent with Patient Time attestation: Total time spent providing and/or coordinating discharge services: Discharge coordination time: Greater than 30 minutes Physical Exam Vital Signs: Vital Signs: Last Vital Signs Temp 98.1 F 11/23/20 11:46 Pulse 72 11/23/20 11:46 Resp 16 11/23/20 11:46 BP 118/56 L 11/23/20 11:46 Pulse Ox 93 11/23/20 11:46 Body Mass Index 25.8 General: AO X 3, no acute distress, abrasian over right eye Resp: CTA bilateral CVS: S1,S2,RRR GI: soft, non tender, non distended Neuro: motor grossly intact Psych: appropriate affect DS: Data Data Completed and Pending Labs on day of discharge: Laboratory Results - last 24 hr 11/23/20 07:19 POC Glucose 91 Discharge Plan Discharge Patient Disposition: Xfer Psychiatric Hosp Discharge Diagnosis: overdose Referrals: Demetrius Flanagan MD [Primary Care Provider] - 1 Week Discharge Medications: New tamsulosin 0.4 mg Capsule 0.4 mg PO DAILY@1730 Qty: 0 RF: 0 Continued ketoconazole 2 % shampoo 1 appl topical DAILY RF: 0 aspirin 81 mg tablet,delayed release (DR/EC) 1 tab PO DAILY RF: 0 lisinopril 10 mg tablet 1 tab PO DAILY RF: 0 folic acid 1 mg tablet 1 tab PO DAILY RF: 0 hydrochlorothiazide 25 mg tablet 1 tab PO DAILY RF: 0 metformin 500 mg tablet extended release 24 hr 1 tab PO DAILY RF: 0 atorvastatin 40 mg tablet 40 mg PO DAILY RF: 0 clonidine HCl 0.1 mg tablet 1 tab PO BID RF: 0 bupropion HCl 100 mg tablet sustained-release 12 hr 1 tab PO BID RF: 0 fluticasone propionate 50 mcg/actuation spray,suspension 1 spray intranasal BID RF: 0 duloxetine 20 mg capsule,delayed release(DR/EC) 1 cap PO DAILY RF: 0 duloxetine 30 mg capsule,delayed release(DR/EC) 1 cap PO DAILY RF: 0 Humira(CF) Pen 40 mg/0.4 mL pen injector kit 40 mg subcut Q2W RF: 0 Discontinued fexofenadine 180 mg tablet 1 tab PO DAILY RF: 0 Discharge Orders: Discharge Order (Routine); Ordered 11/23/20 Ordered By: Tong Croft Activity on Discharge: As tolerated Stand Alone Forms: Patient Portal Discharge page Care Plan Goals: recovery Health Concerns: depression, urinary retention Plan of Treatment: jose cano once amulating Assessment: see above
--- NOTE | 2020-11-23 13:06 | MHC.CM.PN ---
Patient is being discharged to a inpatient psych
[2020-11-23 15:03] VITALS: BP 112/61; PULSE 102; RESP 18; TEMP 37; O2SAT 95
[2020-11-23] MEDS: Tamsulosin HCL 0.4 MG CAPSULE PO (16:03)
[2020-11-25 08:46] LABS: Glucose, Whole Blood 130 mg/dL (60-115)
== END 2020-11-23 16:26 | DRG 917 ==
LOC: HO.ED 18:07 → HO.ICU 19:27 → HO.IMC 11-19 05:12
PROVIDERS: Physician Assistant Medical; Admitting Provider Internal Medicine; Emergency Provider Internal Medicine; PCP Internal Medicine; Visit Provider Internal Medicine
DX: T46.5X2A Poisoning by other antihypertensive drugs, intentional self-harm, initial encounter (principal); G92 Toxic encephalopathy; R45.851 Suicidal ideations; E11.9 Type 2 diabetes mellitus without complications; G35 Multiple sclerosis; I95.9 Hypotension, unspecified; T43.292A Poisoning by other antidepressants, intentional self-harm, initial encounter; I10 Essential (primary) hypertension; R33.9 Retention of urine, unspecified; Y92.9 Unspecified place or not applicable; Z20.822 Contact with and (suspected) exposure to COVID-19; Z87.891 Personal history of nicotine dependence; Z79.51 Long term (current) use of inhaled steroids; Z79.82 Long term (current) use of aspirin; Z79.84 Long term (current) use of oral hypoglycemic drugs; Z79.899 Other long term (current) drug therapy
CPT/HCPCS: 36415; 70450; 72125; 80053; 80143; 80179; 80307; 80320; 81001; 82550; 82947; 83735; 84100; 85025; 87635; 93005; 99285; C1758; J1265

== ENCOUNTER 2020-11-23 16:46 | Inpatient (IN) | payer MEDICARE, SELFPAY ==
[2020-11-23 17:23] VITALS: BMI 27.4
[2020-11-23 19:09] VITALS: BP 100/69; PULSE 123; RESP 18; TEMP 36; O2SAT 95
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
[2020-11-23] MEDS: traZODone HCL 50 MG TABLET PO (22:57)
--- NOTE | 2020-11-24 04:29 | PC.NURSE ---
Kendrick has been awake for most of the evp operations. Patient was able to urinate 3 times from 2200 to 0430 for a total amount of 500ml.
--- NOTE | 2020-11-24 04:35 | PC.NURSE ---
Patient was straight catheterized at 2200 due to reports of not urinating well. Bladder scan showed patient had 975, catheter removed 800 was removed, patient was able to urinate 100ml and 28ml remained in the residual bladder scan.
[2020-11-24 06:00] VITALS: BP 131/62; PULSE 76; RESP 18; TEMP 36.2; O2SAT 94
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
[2020-11-24] MEDS: FLUoxetine HCl 10 MG CAPSULE PO (13:29)
[2020-11-24] MEDS: Tamsulosin HCL 0.4 MG CAPSULE PO (19:38)
[2020-11-24 19:40] VITALS: BP 165/77; PULSE 107; TEMP 36.4
[2020-11-24] MEDS: Fluticasone Propionate Nasal 16 GM SPRAY 1 SPRAY NOSTRIL-B (22:08)
[2020-11-24] MEDS: traZODone HCL 50 MG TABLET PO (22:13)
[2020-11-25] MEDS: traZODone HCL 100 MG TABLET PO (01:26)
[2020-11-25 07:25] VITALS: BP 122/59; PULSE 80; RESP 16; TEMP 37.1; O2SAT 96
[2020-11-25] MEDS: Fluticasone Propionate Nasal 16 GM SPRAY 1 SPRAY NOSTRIL-B ×2 (08:57→21:56)
[2020-11-25] MEDS: FLUoxetine HCl 10 MG CAPSULE PO (09:00)
[2020-11-25] MEDS: Aspirin Enteric Coated 81 MG TABLET.DR PO (09:00)
[2020-11-25] MEDS: Folic Acid 1 MG TABLET PO (09:01)
[2020-11-25] MEDS: Atorvastatin Calcium 40 MG TABLET PO (09:01)
[2020-11-25] MEDS: lisinopriL 10 MG TABLET PO (09:01)
[2020-11-25] MEDS: metFORMIN HCl ER 500 MG TAB.ER.24H PO (09:01)
[2020-11-25] MEDS: hydroCHLOROthiazide 25 MG TABLET PO (09:01)
[2020-11-25 10:43] LABS: Creatinine Clr Calc Pharmacy 80.2; Estimated Glomerular Filt Rate > 60
--- NOTE | 2020-11-25 10:55 | HO.PSYCHPN ---
Subjective Subjective Date of Service: 11/25/20 Reason For Visit: Overdose Subjective Notes: Conditional Voluntary Interim History: The patient reported feeling oversedated with Prozac at AM so he agreed to changed to PM. Still very dysphoric, waiting for Urology consult due to urinary retention Medication Compliance: Yes Side effects from medications: No Attending Groups: No Review of Systems Acute medical concerns: No Medical Review of Systems: unchanged Mental Status Exam Mental Status Exam Patient Appearance: Disheveled (on hospital gowns) Patient Orientation: Person, Place, Time and Situation Level of Consciousness: Awake Patient Behavior: Appropriate Mood Description: Withdrawn and Depressed Affect Description: Constricted Patient Cognition Impaired: No Ability to Follow Directions: Good Speech Pattern: Clear Thought Process: Intact Thought Content: positive for Intact Judgement: Fair Diagnostics Vital Signs (24Hr): Vital Signs - 24 hr 11/24/20 19:40 11/25/20 07:25 Temperature 97.6 F 98.7 F Pulse Rate 107 H 80 Respiratory Rate 16 Blood Pressure 165/77 H 122/59 L Pulse Oximetry 96 Body Mass Index 27.4 Labs Results: 11/25/20 10:09 Labs: Laboratory Results - last 48 hr 11/25/20 10:09 Creatinine 0.90 Estim Creat Clear Calc 80.2 Estimated GFR > 60 Medications Medications Current Medications Generic Name Dose Route Start Last Admin Trade Name Freq PRN Reason Stop Dose Admin Al Hydroxide/Mg Hydroxide 30 ml 11/23/20 15:58 Magnesium Hydrox/Alum Hydrox 30 Ml Oral.Susp PO Q6H PRN Heartburn/Nausea Aspirin 81 mg 11/25/20 09:00 11/25/20 09:00 Aspirin Enteric Coated 81 Mg Tablet. PO 81 mg DAILY [facility] Administration Atorvastatin Calcium 40 mg 11/25/20 09:00 11/25/20 09:01 Atorvastatin Calcium 40 Mg Tablet PO 40 mg DAILY [facility] Administration Clonidine HCl 0.1 mg 11/24/20 21:00 11/25/20 09:05 Clonidine Hcl 0.1 Mg Tablet PO Not Given BID [facility] Protocol Fluoxetine HCl 10 mg 11/24/20 11:25 11/25/20 09:00 Fluoxetine Hcl 10 Mg Capsule PO 10 mg DAILY [facility] Administration Fluticasone Propionate 1 spray 11/24/20 21:00 11/25/20 08:57 Fluticasone Propionate Nasal 16 Gm [place] NOSTRIL-B 1 spray BID [facility] Administration Folic Acid 1 mg 11/25/20 09:00 11/25/20 09:01 Folic Acid 1 Mg Tablet PO 1 mg DAILY [facility] Administration Hydrochlorothiazide 25 mg 11/25/20 09:00 11/25/20 09:01 Hydrochlorothiazide 25 Mg Tablet PO 25 mg DAILY [facility] Administration Protocol Ketoconazole 1 appl 11/25/20 09:00 Ketoconazole 2 % Shampoo 120 Ml Btl TOPICAL DAILY [facility] Protocol Lisinopril 10 mg 11/25/20 09:00 11/25/20 09:01 Lisinopril 10 Mg Tablet PO 10 mg DAILY [facility] Administration Protocol Magnesium Hydroxide 30 ml 11/23/20 15:58 Milk Of Magnesia 30 Ml Oral.Susp PO DAILY PRN Constipation Metformin HCl 500 mg 11/25/20 09:00 11/25/20 09:01 Metformin Hcl Er 500 Mg Tab.Er.24h PO 500 mg DAILY [facility] Administration Non-Formulary Medication 40 mg 11/24/20 15:00 Adalimumab [Humira(Cf) Pen] SUBCUT Q14D [facility] Tamsulosin HCl 0.4 mg 11/24/20 17:30 11/24/20 19:38 Tamsulosin Hcl 0.4 Mg Capsule PO 0.4 mg DAILY@1730 [facility] Administration Trazodone HCl 100 mg 11/25/20 00:59 Trazodone Hcl 50 Mg Tablet PO BEDTIME PRN insomnia Allergies Allergies Allergy/AdvReac Type Severity Reaction Status Date / Time No Known Drug Allergies Allergy Unknown NONE Verified 11/23/20 22:08 [NO KNOWN DRUG ALLERGIES] Assessment & Plan Assessment & Plan (1) Major depressive disorder: Qualifiers: Major depression recurrence: recurrent Active/Remission status: currently active Major depression episode severity: severe Psychotic features: without psychotic features Qualified Code(s): F33.2 - Major depressive disorder, recurrent severe without psychotic features Status: Acute Code(s): F32.9 - Major depressive disorder, single episode, unspecified Assessment and Plan: The patient is a middle age male with apreviou history of MDD with suicidality, who relapsed on depression after several psychosocial stressors. Plan: 1. Change Prozac to 20 mg po qpm. 2. F/U medical problems 3. Gather collateral. Greater than 50% of the session was spent on counseling and/or coordination of care Reason for contiued inpatient stay Substantial Risk for: harm to self, rapid decompensation and med/psych decompensation
[2020-11-25] MEDS: Tamsulosin HCL 0.4 MG CAPSULE PO (17:08)
[2020-11-25 18:00] VITALS: BP 119/59; PULSE 74; TEMP 36.5
[2020-11-25] MEDS: traZODone HCL 50 MG TABLET 100 MG PO (21:56)
[2020-11-26 05:20] VITALS: BP 111/59; PULSE 79; RESP 16; TEMP 36.4; O2SAT 97
[2020-11-26] MEDS: hydroCHLOROthiazide 25 MG TABLET PO (09:40)
[2020-11-26] MEDS: Aspirin Enteric Coated 81 MG TABLET.DR PO (09:40)
[2020-11-26] MEDS: Atorvastatin Calcium 40 MG TABLET PO (09:41)
[2020-11-26] MEDS: Folic Acid 1 MG TABLET PO (09:41)
[2020-11-26] MEDS: metFORMIN HCl ER 500 MG TAB.ER.24H PO (09:41)
--- NOTE | 2020-11-26 09:46 | P.PNPSI_ITS ---
Subjective Subjective Date of Service: 11/26/20 Reason For Visit: Overdose Subjective Notes: Conditional Voluntary Interim History: The patient remains dysphoric, isolative, spending most of the time in his room. No group attendance. Now on 1:1 since he is on a Aguilera due to urinary retention Medication Compliance: Yes Side effects from medications: No Attending Groups: No Review of Systems Acute medical concerns: Yes Urinary retention Medical Review of Systems: unchanged Mental Status Exam Mental Status Exam Patient Appearance: Disheveled (on hospital gowns) and Unkempt Patient Orientation: Person, Place and Situation Level of Consciousness: Awake Patient Behavior: Appropriate Mood Description: Withdrawn Affect Description: Constricted Patient Cognition Impaired: No Ability to Follow Directions: Good Speech Pattern: Clear Memory Description: Intact Thought Process: Goal Oriented and Linear Thought Content: positive for Circumstantial Judgement: Fair Diagnostics Vital Signs (24Hr): Vital Signs - 24 hr 11/25/20 18:00 11/26/20 05:20 Temperature 97.7 F 97.6 F Pulse Rate 74 79 Respiratory Rate 16 Blood Pressure 119/59 L 111/59 L Pulse Oximetry 97 Body Mass Index 27.4 Labs Results: 11/25/20 10:09 Labs: Laboratory Results - last 48 hr 11/25/20 10:09 Creatinine 0.90 Estim Creat Clear Calc 80.2 Estimated GFR > 60 Medications Medications Current Medications Generic Name Dose Route Start Last Admin Trade Name Freq PRN Reason Stop Dose Admin Al Hydroxide/Mg Hydroxide 30 ml 11/23/20 15:58 Magnesium Hydrox/Alum Hydrox 30 Ml Oral.Susp PO Q6H PRN Heartburn/Nausea Aspirin 81 mg 11/25/20 09:00 11/26/20 09:40 Aspirin Enteric Coated 81 Mg Tablet. PO 81 mg DAILY [facility] Administration Atorvastatin Calcium 40 mg 11/25/20 09:00 11/26/20 09:41 Atorvastatin Calcium 40 Mg Tablet PO 40 mg DAILY [facility] Administration Clonidine HCl 0.1 mg 11/24/20 21:00 11/25/20 21:47 Clonidine Hcl 0.1 Mg Tablet PO Not Given BID [facility] Protocol Fluoxetine HCl 20 mg 11/26/20 17:00 Fluoxetine Hcl 20 Mg Capsule PO DAILY@1700 [facility] Fluticasone Propionate 1 spray 11/24/20 21:00 11/25/20 21:56 Fluticasone Propionate Nasal 16 Gm [place] NOSTRIL-B 1 spray BID [facility] Administration Folic Acid 1 mg 11/25/20 09:00 11/26/20 09:41 Folic Acid 1 Mg Tablet PO 1 mg DAILY [facility] Administration Hydrochlorothiazide 25 mg 11/25/20 09:00 11/26/20 09:40 Hydrochlorothiazide 25 Mg Tablet PO 25 mg DAILY [facility] Administration Protocol Ketoconazole 1 appl 11/25/20 09:00 11/25/20 11:42 Ketoconazole 2 % Shampoo 120 Ml Btl TOPICAL Not Given DAILY [facility] Protocol Lisinopril 10 mg 11/25/20 09:00 11/25/20 09:01 Lisinopril 10 Mg Tablet PO 10 mg DAILY [facility] Administration Protocol Magnesium Hydroxide 30 ml 11/23/20 15:58 Milk Of Magnesia 30 Ml Oral.Susp PO DAILY PRN Constipation Metformin HCl 500 mg 11/25/20 09:00 11/26/20 09:41 Metformin Hcl Er 500 Mg Tab.Er.24h PO 500 mg DAILY [facility] Administration Non-Formulary Medication 40 mg 11/24/20 15:00 Adalimumab [Humira(Cf) Pen] SUBCUT Q14D [facility] Tamsulosin HCl 0.4 mg 11/24/20 17:30 11/25/20 17:08 Tamsulosin Hcl 0.4 Mg Capsule PO 0.4 mg DAILY@1730 [facility] Administration Trazodone HCl 100 mg 11/25/20 00:59 11/25/20 21:56 Trazodone Hcl 50 Mg Tablet PO 100 mg BEDTIME PRN Administration insomnia Allergies Allergies Allergy/AdvReac Type Severity Reaction Status Date / Time No Known Drug Allergies Allergy Unknown NONE Verified 11/23/20 22:08 [NO KNOWN DRUG ALLERGIES] Assessment & Plan Assessment & Plan (1) Major depressive disorder: Qualifiers: Major depression recurrence: recurrent Active/Remission status: currently active Major depression episode severity: severe Psychotic features: without psychotic features Qualified Code(s): F33.2 - Major depressive disorder, recurrent severe without psychotic features Status: Acute Code(s): F32.9 - Major depressive disorder, single episode, unspecified Assessment and Plan: The patient is a middle age male with a previou history of MDD with suicidality, who relapsed on depression after several psychosocial stressors such as poor social support, loosing driving license and bad housing . Plan: 1. Keep Prozac to 20 mg po qpm. 2. F/U medical problems and urology consult by Dr. Majano. 3. Gather collateral. Greater than 50% of the session was spent on counseling and/or coordination of care Reason for contiued inpatient stay Substantial Risk for: harm to self, inability to function and med/psych decompensation
[2020-11-26 09:59] VITALS: BP 112/54; PULSE 74
[2020-11-26] MEDS: Fluticasone Propionate Nasal 16 GM SPRAY 1 SPRAY NOSTRIL-B ×2 (10:01→21:01)
[2020-11-26 17:24] VITALS: BP 136/64; PULSE 80; TEMP 36.8
[2020-11-26] MEDS: Tamsulosin HCL 0.4 MG CAPSULE PO (17:29)
[2020-11-26] MEDS: FLUoxetine HCl 20 MG CAPSULE PO (17:29)
[2020-11-26] MEDS: Acetaminophen 325 MG TABLET 650 MG PO (22:02)
[2020-11-27] MEDS: traZODone HCL 50 MG TABLET 100 MG PO ×2 (00:20→21:39)
[2020-11-27 06:00] VITALS: BP 108/61; PULSE 92; RESP 18; TEMP 36.6; O2SAT 97
--- NOTE | 2020-11-27 08:46 | HO.PSYCHPN ---
Subjective Subjective Date of Service: 11/28/20 Reason For Visit: Overdose Interim History: Chart reviewed; case discussed with team. Vitals reviewed: WNL pt reports mood is better and he denies depression or any SI. However, he says he remains very tired since admission and thinks it's due to medications started here. Director Social offers to DC Clonidine since this could cause sedation (tony has already been moved to bedtime). Pt agreed with plan and says otherwise he has no complaints. evans removed; still retention; ~750ml; still needing straight cath Mental Status Exam Mental Status Exam Narrative: Appearance: Disheveled (in hospital gowns) and Unkempt Patient Orientation: Person, Place and Situation Level of Consciousness: Awake Patient Behavior: Appropriate Mood Description: better Affect Description: Constricted Patient Cognition Impaired: No Ability to Follow Directions: Good Speech Pattern: Clear Memory Description: Intact Thought Process: Goal Oriented and Linear Thought Content: goal oriented, linear Judgement: Fair Diagnostics Vital Signs (24Hr): Vital Signs - 24 hr 11/26/20 09:59 11/26/20 17:24 11/27/20 06:00 Temperature 98.2 F 97.8 F Pulse Rate 74 80 92 Respiratory Rate 18 Blood Pressure 112/54 L 136/64 108/61 Pulse Oximetry 97 Body Mass Index 27.4 Labs Results: 11/25/20 10:09 Labs: Laboratory Results - last 48 hr 11/25/20 10:09 Creatinine 0.90 Estim Creat Clear Calc 80.2 Estimated GFR > 60 Medications Medications Current Medications Generic Name Dose Route Start Last Admin Trade Name Freq PRN Reason Stop Dose Admin Acetaminophen 650 mg 11/26/20 21:22 11/26/20 22:02 Acetaminophen 325 Mg Tablet PO 650 mg Q6H PRN Administration Pain, Mild (Pain Scale 1-3) Al Hydroxide/Mg Hydroxide 30 ml 11/23/20 15:58 Magnesium Hydrox/Alum Hydrox 30 Ml Oral.Susp PO Q6H PRN Heartburn/Nausea Aspirin 81 mg 11/25/20 09:00 11/26/20 09:40 Aspirin Enteric Coated 81 Mg Tablet. PO 81 mg DAILY [facility] Administration Atorvastatin Calcium 40 mg 11/25/20 09:00 11/26/20 09:41 Atorvastatin Calcium 40 Mg Tablet PO 40 mg DAILY [facility] Administration Clonidine HCl 0.1 mg 11/24/20 21:00 11/26/20 20:56 Clonidine Hcl 0.1 Mg Tablet PO Not Given BID [facility] Protocol Fluoxetine HCl 20 mg 11/26/20 17:00 11/26/20 17:29 Fluoxetine Hcl 20 Mg Capsule PO 20 mg DAILY@1700 [facility] Administration Fluticasone Propionate 1 spray 11/24/20 21:00 11/26/20 21:01 Fluticasone Propionate Nasal 16 Gm [place] NOSTRIL-B 1 spray BID [facility] Administration Folic Acid 1 mg 11/25/20 09:00 11/26/20 09:41 Folic Acid 1 Mg Tablet PO 1 mg DAILY [facility] Administration Hydrochlorothiazide 25 mg 11/25/20 09:00 11/26/20 09:40 Hydrochlorothiazide 25 Mg Tablet PO 25 mg DAILY [facility] Administration Protocol Ketoconazole 1 appl 11/25/20 09:00 11/26/20 09:59 Ketoconazole 2 % Shampoo 120 Ml Btl TOPICAL Not Given DAILY [facility] Protocol Lisinopril 10 mg 11/25/20 09:00 11/26/20 09:59 Lisinopril 10 Mg Tablet PO Not Given DAILY [facility] Protocol Magnesium Hydroxide 30 ml 11/23/20 15:58 Milk Of Magnesia 30 Ml Oral.Susp PO DAILY PRN Constipation Metformin HCl 500 mg 11/25/20 09:00 11/26/20 09:41 Metformin Hcl Er 500 Mg Tab.Er.24h PO 500 mg DAILY [facility] Administration Non-Formulary Medication 40 mg 11/24/20 15:00 Adalimumab [Humira(Cf) Pen] SUBCUT Q14D [facility] Tamsulosin HCl 0.4 mg 11/24/20 17:30 11/26/20 17:29 Tamsulosin Hcl 0.4 Mg Capsule PO 0.4 mg DAILY@1730 [facility] Administration Trazodone HCl 100 mg 11/25/20 00:59 11/27/20 00:20 Trazodone Hcl 50 Mg Tablet PO 100 mg BEDTIME PRN Administration insomnia Allergies Allergies Allergy/AdvReac Type Severity Reaction Status Date / Time No Known Drug Allergies Allergy Unknown NONE Verified 11/23/20 22:08 [NO KNOWN DRUG ALLERGIES] Assessment & Plan Assessment & Plan (1) Major depressive disorder: Qualifiers: Active/Remission status: currently active Major depression episode severity: severe Major depression recurrence: recurrent Psychotic features: without psychotic features Qualified Code(s): F33.2 - Major depressive disorder, recurrent severe without psychotic features Status: Acute Code(s): F32.9 - Major depressive disorder, single episode, unspecified Assessment and Plan: The patient is a middle age male with a previou history of MDD with suicidality, who relapsed on depression after several psychosocial stressors such as poor social support, loosing driving license and bad housing . 11/27/20 pt reports mood is better and depression gone but complains of being tired all day and thinks it's due to meds started Plan: -will dc Clonidine and see if improves sedation 1. Keep Prozac to 20 mg po qpm. 2. F/U medical problems and urology consult by Dr. Majano. 3. Gather collateral. Greater than 50% of the session was spent on counseling and/or coordination of care Reason for contiued inpatient stay Substantial Risk for: med/psych decompensation
[2020-11-27 09:16] VITALS: BP 102/61; PULSE 92
[2020-11-27] MEDS: metFORMIN HCl ER 500 MG TAB.ER.24H PO (09:16)
[2020-11-27] MEDS: lisinopriL 10 MG TABLET PO (09:16)
[2020-11-27] MEDS: Folic Acid 1 MG TABLET PO (09:16)
[2020-11-27] MEDS: Aspirin Enteric Coated 81 MG TABLET.DR PO (09:16)
[2020-11-27] MEDS: hydroCHLOROthiazide 25 MG TABLET PO (09:16)
[2020-11-27] MEDS: Atorvastatin Calcium 40 MG TABLET PO (09:16)
[2020-11-27] MEDS: Fluticasone Propionate Nasal 16 GM SPRAY 1 SPRAY NOSTRIL-B ×2 (09:24→21:41)
[2020-11-27] MEDS: Acetaminophen 325 MG TABLET 650 MG PO ×2 (14:06→21:40)
[2020-11-27] MEDS: FLUoxetine HCl 20 MG CAPSULE PO (17:29)
[2020-11-27] MEDS: Tamsulosin HCL 0.4 MG CAPSULE PO (17:29)
[2020-11-27 18:00] VITALS: BP 118/67; PULSE 96; TEMP 36.9; O2SAT 98
[2020-11-28 06:00] VITALS: BP 133/82; PULSE 106; RESP 20; TEMP 36.3; O2SAT 95
[2020-11-28] MEDS: Folic Acid 1 MG TABLET PO (08:55)
[2020-11-28] MEDS: Atorvastatin Calcium 40 MG TABLET PO (08:55)
[2020-11-28] MEDS: metFORMIN HCl ER 500 MG TAB.ER.24H PO (08:55)
[2020-11-28] MEDS: Fluticasone Propionate Nasal 16 GM SPRAY 1 SPRAY NOSTRIL-B ×2 (08:55→23:49)
[2020-11-28] MEDS: hydroCHLOROthiazide 25 MG TABLET PO (08:55)
[2020-11-28] MEDS: Aspirin Enteric Coated 81 MG TABLET.DR PO (08:55)
[2020-11-28 08:56] VITALS: BP 96/53; PULSE 82
--- NOTE | 2020-11-28 10:54 | HO.PSYCHPN ---
Subjective Subjective Date of Service: 11/28/20 Reason For Visit: Overdose Interim History: Chart reviewed; case discussed with team. 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 Pt is convinced it's due to Prozac which he says was started on admission. Contaminated Land Consultant and pt discussed options and pt agreed to hold off on prozac for now to see if this makes a difference. Denies SI. No other complaints. pt continues to need straight cath Mental Status Exam Mental Status Exam Narrative: Appearance: Disheveled (in hospital gowns) and Unkempt Patient Orientation: Person, Place and Situation Level of Consciousness: Awake Patient Behavior: Appropriate Mood Description: better Affect Description: Constricted Patient Cognition Impaired: No Ability to Follow Directions: Good Speech Pattern: Clear Memory Description: Intact Thought Process: Goal Oriented and Linear Thought Content: goal oriented, linear Judgement: Fair Diagnostics Vital Signs (24Hr): Vital Signs - 24 hr 11/27/20 18:00 11/28/20 06:00 11/28/20 08:56 Temperature 98.5 F 97.4 F Pulse Rate 96 106 H 82 Respiratory Rate 20 Blood Pressure 118/67 133/82 96/53 L Pulse Oximetry 98 95 Body Mass Index 27.4 Labs Results: 11/25/20 10:09 Medications Medications Current Medications Generic Name Dose Route Start Last Admin Trade Name Freq PRN Reason Stop Dose Admin Acetaminophen 650 mg 11/26/20 21:22 11/27/20 21:40 Acetaminophen 325 Mg Tablet PO 650 mg Q6H PRN Administration Pain, Mild (Pain Scale 1-3) Al Hydroxide/Mg Hydroxide 30 ml 11/23/20 15:58 Magnesium Hydrox/Alum Hydrox 30 Ml Oral.Susp PO Q6H PRN Heartburn/Nausea Aspirin 81 mg 11/25/20 09:00 11/28/20 08:55 Aspirin Enteric Coated 81 Mg Tablet. PO 81 mg DAILY [facility] Administration Atorvastatin Calcium 40 mg 11/25/20 09:00 11/28/20 08:55 Atorvastatin Calcium 40 Mg Tablet PO 40 mg DAILY [facility] Administration Fluoxetine HCl 20 mg 11/26/20 17:00 11/27/20 17:29 Fluoxetine Hcl 20 Mg Capsule PO 20 mg DAILY@1700 [facility] Administration Fluticasone Propionate 1 spray 11/24/20 21:00 11/28/20 08:55 Fluticasone Propionate Nasal 16 Gm [place] NOSTRIL-B 1 spray BID [facility] Administration Folic Acid 1 mg 11/25/20 09:00 11/28/20 08:55 Folic Acid 1 Mg Tablet PO 1 mg DAILY [facility] Administration Hydrochlorothiazide 25 mg 11/25/20 09:00 11/28/20 08:55 Hydrochlorothiazide 25 Mg Tablet PO 25 mg DAILY [facility] Administration Protocol Ketoconazole 1 appl 11/25/20 09:00 11/28/20 08:56 Ketoconazole 2 % Shampoo 120 Ml Btl TOPICAL Not Given DAILY [facility] Protocol Lisinopril 10 mg 11/25/20 09:00 11/28/20 08:56 Lisinopril 10 Mg Tablet PO Not Given DAILY [facility] Protocol Magnesium Hydroxide 30 ml 11/23/20 15:58 Milk Of Magnesia 30 Ml Oral.Susp PO DAILY PRN Constipation Metformin HCl 500 mg 11/25/20 09:00 11/28/20 08:55 Metformin Hcl Er 500 Mg Tab.Er.24h PO 500 mg DAILY [facility] Administration Tamsulosin HCl 0.4 mg 11/24/20 17:30 11/27/20 17:29 Tamsulosin Hcl 0.4 Mg Capsule PO 0.4 mg DAILY@1730 [facility] Administration Trazodone HCl 100 mg 11/25/20 00:59 11/27/20 21:39 Trazodone Hcl 50 Mg Tablet PO 100 mg BEDTIME PRN Administration insomnia Allergies Allergies Allergy/AdvReac Type Severity Reaction Status Date / Time No Known Drug Allergies Allergy Unknown NONE Verified 11/23/20 22:08 [NO KNOWN DRUG ALLERGIES] Assessment & Plan Assessment & Plan (1) Major depressive disorder: Qualifiers: Active/Remission status: currently active Major depression episode severity: severe Major depression recurrence: recurrent Psychotic features: without psychotic features Qualified Code(s): F33.2 - Major depressive disorder, recurrent severe without psychotic features Status: Acute Code(s): F32.9 - Major depressive disorder, single episode, unspecified Assessment and Plan: The patient is a middle age male with a previou history of MDD with suicidality, who relapsed on depression after several psychosocial stressors such as poor social support, loosing driving license and bad housing . 11/27/20 pt reports mood is better and depression gone but complains of being tired all day and thinks it's due to meds started 11/28/20 pt c/o being tired, thinks it's due to Prozac (has been off clonidine for a few days already); agrees to hold Prozac for now Plan: -DC'd Clonidine; pt has not taken for several days -will hold Prozac for 1-2 days and see if tiredness resolves; given long half-life of prozac pt not at risk for discontinuation syndrome; pt agrees with plan 1. HOLD Prozac to 20 mg po qpm. 2. F/U medical problems and urology consult by Dr. Majano. 3. Gather collateral. Greater than 50% of the session was spent on counseling and/or coordination of care Greater than 50% of the session was spent on counseling and/or coordination of care Reason for contiued inpatient stay Substantial Risk for: med/psych decompensation
[2020-11-28] MEDS: Tamsulosin HCL 0.4 MG CAPSULE PO (17:59)
[2020-11-28 18:00] VITALS: BP 118/66; PULSE 95; TEMP 36.5; O2SAT 95
[2020-11-28] MEDS: traZODone HCL 50 MG TABLET 100 MG PO (23:45)
--- NOTE | 2020-11-29 01:54 | PC.NURSE ---
at 0115: patient was able to void using urinal with 450 ml. Bladder scan post void was 609 ml. Patient refused to have straight cath I do not want it now. Later . Reassess patient 50 min later, patient was able to void another 90 ml. Continue to monitor for mental status changes and bladder scan as need
[2020-11-29 06:45] VITALS: BP 100/57; PULSE 88; RESP 16; TEMP 37.1; O2SAT 95
[2020-11-29 09:58] VITALS: BP 113/61; PULSE 93
[2020-11-29] MEDS: hydroCHLOROthiazide 25 MG TABLET PO (09:58)
[2020-11-29] MEDS: Atorvastatin Calcium 40 MG TABLET PO (09:58)
[2020-11-29] MEDS: Aspirin Enteric Coated 81 MG TABLET.DR PO (09:58)
[2020-11-29] MEDS: lisinopriL 10 MG TABLET PO (09:58)
[2020-11-29] MEDS: metFORMIN HCl ER 500 MG TAB.ER.24H PO (09:58)
[2020-11-29] MEDS: Folic Acid 1 MG TABLET PO (09:58)
[2020-11-29] MEDS: Fluticasone Propionate Nasal 16 GM SPRAY 1 SPRAY NOSTRIL-B ×2 (10:05→22:49)
--- NOTE | 2020-11-29 10:51 | HO.PSYCHPN ---
Subjective Subjective Date of Service: 11/29/20 Reason For Visit: Overdose Subjective Notes: Conditional Voluntary Interim History: The patiluke has been isolative, laying on his room all day long, with no participation to groups. Since he was oversedated, yesterday. Dr. Gann held his Prozac but he was still with anergia. We discussed options and he agreed to add Abilify. He had his Aguilera removed and he refused to be straight cath since he was still some urinary retention Medication Compliance: Yes Side effects from medications: No Attending Groups: No Review of Systems Acute medical concerns: No Medical Review of Systems: unchanged Mental Status Exam Mental Status Exam Patient Appearance: Disheveled (on hospital gowns) and Unkempt (no shower since he arrived to the unit.) Patient Orientation: Person, Place and Time Level of Consciousness: Awake Patient Behavior: Guarded Mood Description: Withdrawn and Depressed Affect Description: Constricted Patient Cognition Impaired: No Ability to Follow Directions: Good Speech Pattern: Clear Memory Description: Intact Hallucinations: None Delusions: Not Present Thought Process: Slowed Thinking Thought Content: positive for Circumstantial Depressive Symptoms: Increased Anxiety, Sleeping More Than Usual, Loss of Int. in Activity, Feelings of Worthlessness and Significant Weight Gain Judgement: Fair Diagnostics Vital Signs (24Hr): Vital Signs - 24 hr 11/28/20 18:00 11/29/20 06:45 11/29/20 09:58 Temperature 97.7 F 98.8 F Pulse Rate 95 88 93 Respiratory Rate 16 Blood Pressure 118/66 100/57 L 113/61 Pulse Oximetry 95 95 Body Mass Index 27.4 Labs Results: 11/25/20 10:09 Medications Medications Current Medications Generic Name Dose Route Start Last Admin Trade Name Freq PRN Reason Stop Dose Admin Acetaminophen 650 mg 11/26/20 21:22 11/27/20 21:40 Acetaminophen 325 Mg Tablet PO 650 mg Q6H PRN Administration Pain, Mild (Pain Scale 1-3) Al Hydroxide/Mg Hydroxide 30 ml 11/23/20 15:58 Magnesium Hydrox/Alum Hydrox 30 Ml Oral.Susp PO Q6H PRN Heartburn/Nausea Aspirin 81 mg 11/25/20 09:00 11/29/20 09:58 Aspirin Enteric Coated 81 Mg Tablet. PO 81 mg DAILY [facility] Administration Atorvastatin Calcium 40 mg 11/25/20 09:00 11/29/20 09:58 Atorvastatin Calcium 40 Mg Tablet PO 40 mg DAILY [facility] Administration Fluoxetine HCl 20 mg 11/26/20 17:00 11/27/20 17:29 Fluoxetine Hcl 20 Mg Capsule PO 20 mg DAILY@1700 [facility] Administration Fluticasone Propionate 1 spray 11/24/20 21:00 11/29/20 10:05 Fluticasone Propionate Nasal 16 Gm [place] NOSTRIL-B 1 spray BID [facility] Administration Folic Acid 1 mg 11/25/20 09:00 11/29/20 09:58 Folic Acid 1 Mg Tablet PO 1 mg DAILY [facility] Administration Hydrochlorothiazide 25 mg 11/25/20 09:00 11/29/20 09:58 Hydrochlorothiazide 25 Mg Tablet PO 25 mg DAILY [facility] Administration Protocol Ketoconazole 1 appl 11/25/20 09:00 11/29/20 10:05 Ketoconazole 2 % Shampoo 120 Ml Btl TOPICAL 1 appl DAILY [facility] Administration Protocol Lisinopril 10 mg 11/25/20 09:00 11/29/20 09:58 Lisinopril 10 Mg Tablet PO 10 mg DAILY [facility] Administration Protocol Magnesium Hydroxide 30 ml 11/23/20 15:58 Milk Of Magnesia 30 Ml Oral.Susp PO DAILY PRN Constipation Metformin HCl 500 mg 11/25/20 09:00 11/29/20 09:58 Metformin Hcl Er 500 Mg Tab.Er.24h PO 500 mg DAILY [facility] Administration Tamsulosin HCl 0.4 mg 11/24/20 17:30 11/28/20 17:59 Tamsulosin Hcl 0.4 Mg Capsule PO 0.4 mg DAILY@1730 [facility] Administration Trazodone HCl 100 mg 11/25/20 00:59 11/28/20 23:45 Trazodone Hcl 50 Mg Tablet PO 100 mg BEDTIME PRN Administration insomnia Allergies Allergies Allergy/AdvReac Type Severity Reaction Status Date / Time No Known Drug Allergies Allergy Unknown NONE Verified 11/23/20 22:08 [NO KNOWN DRUG ALLERGIES] Assessment & Plan Assessment & Plan (1) Major depressive disorder: Qualifiers: Major depression recurrence: recurrent Active/Remission status: currently active Major depression episode severity: severe Psychotic features: without psychotic features Qualified Code(s): F33.2 - Major depressive disorder, recurrent severe without psychotic features Status: Acute Code(s): F32.9 - Major depressive disorder, single episode, unspecified Assessment and Plan: The patient is a middle age male with a previou history of MDD with suicidality, who relapsed on depression after several psychosocial stressors such as poor social support, loosing driving license and bad housing . Plan: - Start Abilify 2 mg po qam - Re-start Prozac at hs Greater than 50% of the session was spent on counseling and/or coordination of care Greater than 50% of the session was spent on counseling and/or coordination of care Reason for contiued inpatient stay Substantial Risk for: harm to self, inability to function, rapid decompensation and med/psych decompensation
[2020-11-29] MEDS: ARIPiprazole 2 MG TABLET PO (14:39)
[2020-11-29] MEDS: Ketoconazole 2 % Shampoo 120 ML BTL 1 APPL TOPICAL (14:44)
[2020-11-29] MEDS: Tamsulosin HCL 0.4 MG CAPSULE PO (17:19)
[2020-11-29 18:00] VITALS: BP 108/76; PULSE 88; TEMP 37.5; O2SAT 95
--- NOTE | 2020-11-30 05:46 | PC.NURSE ---
0540: Bladder scan indicated 422 ml of retention. Pt refused straight cath. Provided pt education regarding potential complications of retention. Pt continued to refuse straight cath: I'm fine. It's too early. Denied pain/discomfrot in lower abdomen. Out put of 250 dark yellow urine. Encouraged hydration, ambulation, and informed he would be reassessed at a later time.
[2020-11-30 06:40] VITALS: BP 101/57; PULSE 101; RESP 16; TEMP 37.9; O2SAT 95
[2020-11-30] MEDS: Acetaminophen 325 MG TABLET 650 MG PO (06:51)
[2020-11-30 08:32] VITALS: BP 98/51; PULSE 92
[2020-11-30] MEDS: metFORMIN HCl ER 500 MG TAB.ER.24H PO (08:32)
[2020-11-30] MEDS: hydroCHLOROthiazide 25 MG TABLET PO (08:32)
[2020-11-30] MEDS: Folic Acid 1 MG TABLET PO (08:32)
[2020-11-30] MEDS: Fluticasone Propionate Nasal 16 GM SPRAY 1 SPRAY NOSTRIL-B ×2 (08:32→22:28)
[2020-11-30] MEDS: ARIPiprazole 2 MG TABLET PO (08:32)
[2020-11-30] MEDS: Atorvastatin Calcium 40 MG TABLET PO (08:32)
[2020-11-30] MEDS: Aspirin Enteric Coated 81 MG TABLET.DR PO (08:32)
--- NOTE | 2020-11-30 12:08 | HO.PSYCHPN ---
Subjective Subjective Date of Service: 11/30/20 Reason For Visit: Overdose Subjective Notes: Conditional Voluntary Interim History: The patient remains depressed and isolative. He has still urinary retention and he has not cooperated with the straight catheterizations. Medication Compliance: Yes Side effects from medications: No Attending Groups: Yes Review of Systems Acute medical concerns: Yes Urinary retention Medical Review of Systems: unchanged Mental Status Exam Mental Status Exam Patient Appearance: Disheveled Patient Orientation: Person, Place, Time and Situation Level of Consciousness: Awake Patient Behavior: Appropriate Mood Description: Withdrawn Affect Description: Constricted Patient Cognition Impaired: No Ability to Follow Directions: Good Speech Pattern: Clear Memory Description: Intact Hallucinations: None Delusions: Not Present Thought Process: Goal Oriented Thought Content: positive for Intact Depressive Symptoms: Increased Anxiety, Difficulty Sleeping, Changes in Appetite, Crying Spells, Feelings of Worthlessness and Hopelessness Judgement: Fair Diagnostics Vital Signs (24Hr): Vital Signs - 24 hr 11/29/20 18:00 11/30/20 06:40 11/30/20 08:32 Temperature 99.5 F 100.2 F Pulse Rate 88 101 H 92 Respiratory Rate 16 Blood Pressure 108/76 101/57 L 98/51 L Pulse Oximetry 95 95 Body Mass Index 27.4 Labs Results: 11/25/20 10:09 Medications Medications Current Medications Generic Name Dose Route Start Last Admin Trade Name Carlozq PRN Reason Stop Dose Admin Acetaminophen 650 mg 11/26/20 21:22 11/30/20 06:51 Acetaminophen 325 Mg Tablet PO 650 mg Q6H PRN Administration Pain, Mild (Pain Scale 1-3) Al Hydroxide/Mg Hydroxide 30 ml 11/23/20 15:58 Magnesium Hydrox/Alum Hydrox 30 Ml Oral.Susp PO Q6H PRN Heartburn/Nausea Aripiprazole 2 mg 11/29/20 11:00 11/30/20 08:32 Aripiprazole 2 Mg Tablet PO 2 mg DAILY [facility] Administration Aspirin 81 mg 11/25/20 09:00 11/30/20 08:32 Aspirin Enteric Coated 81 Mg Tablet.Dr PO 81 mg DAILY [facility] Administration Atorvastatin Calcium 40 mg 11/25/20 09:00 11/30/20 08:32 Atorvastatin Calcium 40 Mg Tablet PO 40 mg DAILY [facility] Administration Fluoxetine HCl 20 mg 11/30/20 21:00 Fluoxetine Hcl 20 Mg Capsule PO BEDTIME [facility] Fluticasone Propionate 1 spray 11/24/20 21:00 11/30/20 08:32 Fluticasone Propionate Nasal 16 Gm [place] NOSTRIL-B 1 spray BID [facility] Administration Folic Acid 1 mg 11/25/20 09:00 11/30/20 08:32 Folic Acid 1 Mg Tablet PO 1 mg DAILY [facility] Administration Hydrochlorothiazide 25 mg 11/25/20 09:00 11/30/20 08:32 Hydrochlorothiazide 25 Mg Tablet PO 25 mg DAILY [facility] Administration Protocol Ketoconazole 1 appl 11/25/20 09:00 11/30/20 08:33 Ketoconazole 2 % Shampoo 120 Ml Btl TOPICAL Not Given DAILY [facility] Protocol Lisinopril 10 mg 11/25/20 09:00 11/30/20 08:32 Lisinopril 10 Mg Tablet PO Not Given DAILY [facility] Protocol Magnesium Hydroxide 30 ml 11/23/20 15:58 Milk Of Magnesia 30 Ml Oral.Susp PO DAILY PRN Constipation Metformin HCl 500 mg 11/25/20 09:00 11/30/20 08:32 Metformin Hcl Er 500 Mg Tab.Er.24h PO 500 mg DAILY [facility] Administration Tamsulosin HCl 0.4 mg 11/24/20 17:30 11/29/20 17:19 Tamsulosin Hcl 0.4 Mg Capsule PO 0.4 mg DAILY@1730 [facility] Administration Trazodone HCl 100 mg 11/25/20 00:59 11/28/20 23:45 Trazodone Hcl 50 Mg Tablet PO 100 mg BEDTIME PRN Administration insomnia Allergies Allergies Allergy/AdvReac Type Severity Reaction Status Date / Time No Known Drug Allergies Allergy Unknown NONE Verified 11/23/20 22:08 [NO KNOWN DRUG ALLERGIES] Assessment & Plan Assessment & Plan (1) Major depressive disorder: Qualifiers: Major depression recurrence: recurrent Active/Remission status: currently active Major depression episode severity: severe Psychotic features: without psychotic features Qualified Code(s): F33.2 - Major depressive disorder, recurrent severe without psychotic features Status: Acute Code(s): F32.9 - Major depressive disorder, single episode, unspecified Assessment and Plan: The patient is a middle age male with a previou history of MDD with suicidality, who relapsed on depression after several psychosocial stressors such as poor social support, loosing driving license and bad housing . Plan: - Start Abilify 2 mg po qam - Re-start Prozac at hs Greater than 50% of the session was spent on counseling and/or coordination of care Greater than 50% of the session was spent on counseling and/or coordination of care Reason for contiued inpatient stay Substantial Risk for: harm to self, inability to function and med/psych decompensation
[2020-11-30 14:11] LABS: Basophils Absolute Auto 0.1 X10*3/uL (0.0-0.2); Basophils Percent Auto 0.4 % (0-2); Eosinophils Absolute Auto 0.1 X10*3/uL (0.0-0.4); Eosinophils Percent Auto 0.7 % (0-4); Hematocrit 40.7 % (42-52); Hemoglobin 13.7 g/dl (14.0-18.0); Imm Gran Abs Auto 0.14 X10*3/uL (0.00-0.03); Imm Gran Pct Auto 0.7 % (0.0-0.4); Lymphocytes Percent Auto 10.4 % (20-40); MANUAL DIFF FLAG SCAN; Mean Corpuscular HGB Conc 33.7 g/dl (31.0-36.0); Mean Corpuscular Hemoglobin 30.6 pg (27.0-33.0); Mean Corpuscular Volume 90.8 fL (80-98); Mean Platelet Volume 9.3 fL (9.4-12.4); Monocytes Absolute Auto 1.8 X10*3/uL (0.1-1.2); Monocytes Percent Auto 9.1 % (2-11); Neutrophils Absolute Auto 15.2 X10*3/uL (2.0-8.3); Neutrophils Percent Auto 78.7 % (45-73); Platelet Count 340 X10*3/uL (160-400); Red Blood Count 4.48 X10*6/uL (4.60-5.80); Red Cell Distribution Width 12.7 % (11.0-16.0); SCAN SMEAR FLAG 1; White Blood Count 19.4 X10*3/uL (4.8-10.8)
[2020-11-30 14:31] LABS: SLIDE REVIEW VERIFIED
[2020-11-30] MEDS: Tamsulosin HCL 0.4 MG CAPSULE PO (17:56)
[2020-11-30 18:00] VITALS: BP 123/69; PULSE 88; RESP 16; TEMP 36.5; O2SAT 99
[2020-11-30] MEDS: FLUoxetine HCl 20 MG CAPSULE PO (22:28)
[2020-11-30 23:18] LABS: Glucose, Whole Blood 114 mg/dL (60-115)
[2020-12-01] MEDS: traZODone HCL 50 MG TABLET 100 MG PO ×2 (01:52→23:05)
[2020-12-01] MEDS: Acetaminophen 325 MG TABLET 650 MG PO ×2 (01:52→19:48)
[2020-12-01 06:00] VITALS: BP 98/53; PULSE 83; RESP 18; TEMP 36.8; O2SAT 96
[2020-12-01 09:17] LABS: Anion Gap 14 (12-20); Blood Urea Nitrogen 18 mg/dL (9-16); Calcium 8.9 mg/dL (8.4-10.2); Carbon Dioxide 29 mmol/L (22-29); Chloride 96 mmol/L (96-108); Creatinine Clr Calc Pharmacy 92.5; Estimated Glomerular Filt Rate > 60; Glucose Random 95 mg/dL (60-115); Potassium 3.8 mmol/L (3.3-5.1); Sodium 135 mmol/L (135-145)
[2020-12-01] MEDS: Folic Acid 1 MG TABLET PO (09:34)
[2020-12-01] MEDS: metFORMIN HCl ER 500 MG TAB.ER.24H PO (09:34)
[2020-12-01] MEDS: Atorvastatin Calcium 40 MG TABLET PO (09:34)
[2020-12-01] MEDS: hydroCHLOROthiazide 25 MG TABLET PO (09:34)
[2020-12-01 09:35] VITALS: BP 117/70; PULSE 86
[2020-12-01] MEDS: ARIPiprazole 2 MG TABLET PO (09:35)
[2020-12-01] MEDS: Aspirin Enteric Coated 81 MG TABLET.DR PO (09:35)
[2020-12-01] MEDS: lisinopriL 10 MG TABLET PO (09:35)
[2020-12-01] MEDS: Fluticasone Propionate Nasal 16 GM SPRAY 1 SPRAY NOSTRIL-B ×2 (09:54→19:50)
[2020-12-01 11:02] LABS: Glucose, Whole Blood 154 mg/dL (60-115)
--- NOTE | 2020-12-01 12:16 | P.PNPSI_ITS ---
Subjective Subjective Date of Service: 12/01/20 Reason For Visit: Overdose Subjective Notes: Conditional Voluntary Interim History: The patient remains deprssed, slightly more energetic since we added Abilify as augmentation. He is still retaining urine after Aguilera was removed and he has refused to straight cath. Education into his condition was discussed. Medication Compliance: Yes Attending Groups: No Mental Status Exam Mental Status Exam Patient Appearance: Disheveled Patient Orientation: Person, Place, Time and Situation Level of Consciousness: Awake Patient Behavior: Appropriate and Cooperative Mood Description: Withdrawn Affect Description: Constricted Patient Cognition Impaired: No Ability to Follow Directions: Good Speech Pattern: Clear Memory Description: Intact Hallucinations: None Delusions: Not Present Thought Process: Goal Oriented Thought Content: positive for Intact Depressive Symptoms: Sleeping More Than Usual, Feelings of Worthlessness, H opelessness, Feelings of Guilt, Unhappiness, Low Self Esteem, Loss of Energy and Difficulty Concentrating Judgement: Fair Diagnostics Vital Signs (24Hr): Vital Signs - 24 hr 11/30/20 18:00 12/01/20 06:00 12/01/20 09:35 Temperature 97.7 F 98.2 F Pulse Rate 88 83 86 Respiratory Rate 16 18 Blood Pressure 123/69 98/53 L 117/70 Pulse Oximetry 99 96 Body Mass Index 27.4 Labs Results: 11/30/20 14:00 12/01/20 07:54 Labs: Laboratory Results - last 48 hr 11/30/20 11/30/20 12/01/20 14:00 23:13 07:54 WBC 19.4 H RBC 4.48 L Hgb 13.7 L Hct 40.7 L MCV 90.8 MCH 30.6 MCHC 33.7 RDW 12.7 Plt Count 340 D MPV 9.3 L Immature Gran % (Auto) 0.7 H Neut % (Auto) 78.7 H Lymph % (Auto) 10.4 L [place] % (Auto) 9.1 Eos % (Auto) 0.7 Baso % (Auto) 0.4 Lymph # (Auto) 2.0 [place] # (Auto) 1.8 H Eos # (Auto) 0.1 Baso # (Auto) 0.1 Abs Immat Gran (auto) 0.14 H Absolute Neuts (auto) 15.2 H Absolute Nucleated RBC 0.000 Nucleated RBC % (auto) 0.0 Smear Tech's Comments VERIFIED Sodium 135 Potassium 3.8 Chloride 96 Carbon Dioxide 29 Anion Gap 14 BUN 18 H Creatinine 0.78 Estim Creat Clear Calc 92.5 Estimated GFR > 60 POC Glucose 114 Random Glucose 95 Calcium 8.9 12/01/20 10:58 WBC RBC Hgb Hct MCV MCH MCHC RDW Plt Count MPV Immature Gran % (Auto) Neut % (Auto) Lymph % (Auto) [place] % (Auto) Eos % (Auto) Baso % (Auto) Lymph # (Auto) [place] # (Auto) Eos # (Auto) Baso # (Auto) Abs Immat Gran (auto) Absolute Neuts (auto) Absolute Nucleated RBC Nucleated RBC % (auto) Smear Tech's Comments Sodium Potassium Chloride Carbon Dioxide Anion Gap BUN Creatinine Estim Creat Clear Calc Estimated GFR POC Glucose 154 H Random Glucose Calcium Medications Medications Current Medications Generic Name Dose Route Start Last Admin Trade Name Freq PRN Reason Stop Dose Admin Acetaminophen 650 mg 11/26/20 21:22 12/01/20 01:52 Acetaminophen 325 Mg Tablet PO 650 mg Q6H PRN Administration Pain, Mild (Pain Scale 1-3) Al Hydroxide/Mg Hydroxide 30 ml 11/23/20 15:58 Magnesium Hydrox/Alum Hydrox 30 Ml Oral.Susp PO Q6H PRN Heartburn/Nausea Aripiprazole 2 mg 11/29/20 11:00 12/01/20 09:35 Aripiprazole 2 Mg Tablet PO 2 mg DAILY ABDON Administration Aspirin 81 mg 11/25/20 09:00 12/01/20 09:35 Aspirin Enteric Coated 81 Mg Tablet.Dr PO 81 mg DAILY ABDON Administration Atorvastatin Calcium 40 mg 11/25/20 09:00 12/01/20 09:34 Atorvastatin Calcium 40 Mg Tablet PO 40 mg DAILY ABDON Administration Fluoxetine HCl 20 mg 11/30/20 21:00 11/30/20 22:28 Fluoxetine Hcl 20 Mg Capsule PO 20 mg BEDTIME ABDON Administration Fluticasone Propionate 1 spray 11/24/20 21:00 12/01/20 09:54 Fluticasone Propionate Nasal 16 Gm [place] NOSTRIL-B 1 spray BID ABDON Administration Folic Acid 1 mg 11/25/20 09:00 12/01/20 09:34 Folic Acid 1 Mg Tablet PO 1 mg DAILY ABDON Administration Hydrochlorothiazide 25 mg 11/25/20 09:00 12/01/20 09:34 Hydrochlorothiazide 25 Mg Tablet PO 25 mg DAILY ABDON Administration Protocol Ketoconazole 1 appl 11/25/20 09:00 12/01/20 09:35 Ketoconazole 2 % Shampoo 120 Ml Btl TOPICAL Not Given DAILY [facility] Protocol Lisinopril 10 mg 11/25/20 09:00 12/01/20 09:35 Lisinopril 10 Mg Tablet PO 10 mg DAILY ABDON Administration Protocol Magnesium Hydroxide 30 ml 11/23/20 15:58 Milk Of Magnesia 30 Ml Oral.Susp PO DAILY PRN Constipation Metformin HCl 500 mg 11/25/20 09:00 12/01/20 09:34 Metformin Hcl Er 500 Mg Tab.Er.24h PO 500 mg DAILY ABDON Administration Tamsulosin HCl 0.4 mg 11/24/20 17:30 11/30/20 17:56 Tamsulosin Hcl 0.4 Mg Capsule PO 0.4 mg DAILY@1730 ABDON Administration Trazodone HCl 100 mg 11/25/20 00:59 12/01/20 01:52 Trazodone Hcl 50 Mg Tablet PO 100 mg BEDTIME PRN Administration insomnia Allergies Allergies Allergy/AdvReac Type Severity Reaction Status Date / Time No Known Drug Allergies Allergy Unknown NONE Verified 11/23/20 22:08 [NO KNOWN DRUG ALLERGIES] Assessment & Plan Assessment & Plan (1) Major depressive disorder: Qualifiers: Major depression recurrence: recurrent Active/Remission status: currently active Major depression episode severity: severe Psychotic features: without psychotic features Qualified Code(s): F33.2 - Major depressive disorder, recurrent severe without psychotic features Status: Acute Code(s): F32.9 - Major depressive disorder, single episode, unspecified Assessment and Plan: The patient is a middle age male with a previou history of MDD with suicidality, who relapsed on depression after several psychosocial stressors such as poor social support, loosing driving license and bad housing . Plan: - Continue Abilify 2 mg po qam - Increase Prozac to 40 mg at hs Greater than 50% of the session was spent on counseling and/or coordination of care Greater than 50% of the session was spent on counseling and/or coordination of care Reason for contiued inpatient stay Substantial Risk for: harm to self, stable for discharge, rapid decompensation and med/psych decompensation
[2020-12-01] MEDS: Tamsulosin HCL 0.4 MG CAPSULE PO (17:31)
[2020-12-01 17:49] LABS: Glucose, Whole Blood 121 mg/dL (60-115)
[2020-12-01] MEDS: FLUoxetine HCl 20 MG CAPSULE 40 MG PO (19:58)
[2020-12-02 06:35] VITALS: BP 96/55; PULSE 83; RESP 18; TEMP 36.5; O2SAT 96
[2020-12-02 07:00] VITALS: BMI 27.1
[2020-12-02 09:20] VITALS: BP 96/51; PULSE 81
[2020-12-02] MEDS: Fluticasone Propionate Nasal 16 GM SPRAY 1 SPRAY NOSTRIL-B ×2 (09:20→21:40)
[2020-12-02] MEDS: metFORMIN HCl ER 500 MG TAB.ER.24H PO (09:20)
[2020-12-02] MEDS: hydroCHLOROthiazide 25 MG TABLET PO (09:20)
[2020-12-02] MEDS: Atorvastatin Calcium 40 MG TABLET PO (09:20)
[2020-12-02] MEDS: ARIPiprazole 2 MG TABLET PO (09:20)
[2020-12-02] MEDS: Aspirin Enteric Coated 81 MG TABLET.DR PO (09:20)
[2020-12-02] MEDS: Folic Acid 1 MG TABLET PO (09:20)
[2020-12-02] MEDS: Acetaminophen 325 MG TABLET 650 MG PO ×3 (09:30→22:46)
[2020-12-02 11:42] LABS: Glucose, Whole Blood 151 mg/dL (60-115)
--- NOTE | 2020-12-02 11:59 | HO.PSYCHPN ---
Subjective Subjective Date of Service: 12/02/20 Reason For Visit: Overdose Interim History: The patient reported that he is still dysphoric, with anergia. He had urinary retention and needed to be catheterized and 1200 cc of urine was evacuated. Medication Compliance: Yes Side effects from medications: No Attending Groups: No Mental Status Exam Mental Status Exam Patient Appearance: Well Grooomed Patient Orientation: Person, Place, Time and Situation Level of Consciousness: Awake Patient Behavior: Cooperative Mood Description: Calm Affect Description: Depressed Patient Cognition Impaired: No Ability to Follow Directions: Good Speech Pattern: Clear Memory Description: Intact Hallucinations: None Delusions: Not Present Thought Process: Goal Oriented Thought Content: positive for Intact Depressive Symptoms: Significant Weight Loss and Loss of Int. in Activity Judgement: Fair Diagnostics Vital Signs (24Hr): Vital Signs - 24 hr 12/02/20 06:35 12/02/20 09:20 Temperature 97.7 F Pulse Rate 83 81 Respiratory Rate 18 Blood Pressure 96/55 L 96/51 L Pulse Oximetry 96 Body Mass Index 27.4 Labs Results: 11/30/20 14:00 12/01/20 07:54 Labs: Laboratory Results - last 48 hr 11/30/20 11/30/20 12/01/20 14:00 23:13 07:54 WBC 19.4 H RBC 4.48 L Hgb 13.7 L Hct 40.7 L MCV 90.8 MCH 30.6 MCHC 33.7 RDW 12.7 Plt Count 340 D MPV 9.3 L Immature Gran % (Auto) 0.7 H Neut % (Auto) 78.7 H Lymph % (Auto) 10.4 L [place] % (Auto) 9.1 Eos % (Auto) 0.7 Baso % (Auto) 0.4 Lymph # (Auto) 2.0 [place] # (Auto) 1.8 H Eos # (Auto) 0.1 Baso # (Auto) 0.1 Abs Immat Gran (auto) 0.14 H Absolute Neuts (auto) 15.2 H Absolute Nucleated RBC 0.000 Nucleated RBC % (auto) 0.0 Smear Tech's Comments VERIFIED Sodium 135 Potassium 3.8 Chloride 96 Carbon Dioxide 29 Anion Gap 14 BUN 18 H Creatinine 0.78 Estim Creat Clear Calc 92.5 Estimated GFR > 60 POC Glucose 114 Random Glucose 95 Calcium 8.9 12/01/20 12/01/20 12/02/20 10:58 16:49 11:29 WBC RBC Hgb Hct MCV MCH MCHC RDW Plt Count MPV Immature Gran % (Auto) Neut % (Auto) Lymph % (Auto) [place] % (Auto) Eos % (Auto) Baso % (Auto) Lymph # (Auto) [place] # (Auto) Eos # (Auto) Baso # (Auto) Abs Immat Gran (auto) Absolute Neuts (auto) Absolute Nucleated RBC Nucleated RBC % (auto) Smear Tech's Comments Sodium Potassium Chloride Carbon Dioxide Anion Gap BUN Creatinine Estim Creat Clear Calc Estimated GFR POC Glucose 154 H 121 H 151 H Random Glucose Calcium Medications Medications Current Medications Generic Name Dose Route Start Last Admin Trade Name Freq PRN Reason Stop Dose Admin Acetaminophen 650 mg 11/26/20 21:22 12/02/20 09:30 Acetaminophen 325 Mg Tablet PO 650 mg Q6H PRN Administration Pain, Mild (Pain Scale 1-3) Al Hydroxide/Mg Hydroxide 30 ml 11/23/20 15:58 Magnesium Hydrox/Alum Hydrox 30 Ml Oral.Susp PO Q6H PRN Heartburn/Nausea Aripiprazole 2 mg 11/29/20 11:00 12/02/20 09:20 Aripiprazole 2 Mg Tablet PO 2 mg DAILY ABDON Administration Aspirin 81 mg 11/25/20 09:00 12/02/20 09:20 Aspirin Enteric Coated 81 Mg Tablet.Dr PO 81 mg DAILY ABDON Administration Atorvastatin Calcium 40 mg 11/25/20 09:00 12/02/20 09:20 Atorvastatin Calcium 40 Mg Tablet PO 40 mg DAILY ABDON Administration Fluoxetine HCl 40 mg 12/01/20 21:00 12/01/20 19:58 Fluoxetine Hcl 20 Mg Capsule PO 40 mg BEDTIME ABDON Administration Fluticasone Propionate 1 spray 11/24/20 21:00 12/02/20 09:20 Fluticasone Propionate Nasal 16 Gm [place] NOSTRIL-B 1 spray BID ABDON Administration Folic Acid 1 mg 11/25/20 09:00 12/02/20 09:20 Folic Acid 1 Mg Tablet PO 1 mg DAILY ABDON Administration Hydrochlorothiazide 25 mg 11/25/20 09:00 12/02/20 09:20 Hydrochlorothiazide 25 Mg Tablet PO 25 mg DAILY ABDON Administration Protocol Ketoconazole 1 appl 11/25/20 09:00 12/02/20 09:20 Ketoconazole 2 % Shampoo 120 Ml Btl TOPICAL Not Given DAILY [facility] Protocol Lisinopril 10 mg 11/25/20 09:00 12/02/20 09:20 Lisinopril 10 Mg Tablet PO Not Given DAILY [facility] Protocol Magnesium Hydroxide 30 ml 11/23/20 15:58 Milk Of Magnesia 30 Ml Oral.Susp PO DAILY PRN Constipation Metformin HCl 500 mg 11/25/20 09:00 12/02/20 09:20 Metformin Hcl Er 500 Mg Tab.Er.24h PO 500 mg DAILY ABDON Administration Tamsulosin HCl 0.4 mg 11/24/20 17:30 12/01/20 17:31 Tamsulosin Hcl 0.4 Mg Capsule PO 0.4 mg DAILY@1730 ABDON Administration Trazodone HCl 100 mg 11/25/20 00:59 12/01/20 23:05 Trazodone Hcl 50 Mg Tablet PO 100 mg BEDTIME PRN Administration insomnia Allergies Allergies Allergy/AdvReac Type Severity Reaction Status Date / Time No Known Drug Allergies Allergy Unknown NONE Verified 11/23/20 22:08 [NO KNOWN DRUG ALLERGIES] Assessment & Plan Assessment & Plan (1) Major depressive disorder: Qualifiers: Major depression recurrence: recurrent Active/Remission status: currently active Major depression episode severity: severe Psychotic features: without psychotic features Qualified Code(s): F33.2 - Major depressive disorder, recurrent severe without psychotic features Status: Acute Code(s): F32.9 - Major depressive disorder, single episode, unspecified Assessment and Plan: The patient is a middle age male with a previou history of MDD with suicidality, who relapsed on depression after several psychosocial stressors such as poor social support, loosing driving license and bad housing . Plan: - Continue Abilify 2 mg po qam - Continue Prozac to 40 mg at hs Greater than 50% of the session was spent on counseling and/or coordination of care Greater than 50% of the session was spent on counseling and/or coordination of care Reason for contiued inpatient stay Substantial Risk for: harm to self, rapid decompensation and med/psych decompensation
[2020-12-02] MEDS: Tamsulosin HCL 0.4 MG CAPSULE PO (17:39)
[2020-12-02 17:51] VITALS: BP 111/66; PULSE 88; RESP 18; TEMP 36.6; O2SAT 96
[2020-12-02 18:59] LABS: Glucose, Whole Blood 129 mg/dL (60-115)
[2020-12-02] MEDS: FLUoxetine HCl 20 MG CAPSULE 40 MG PO (21:40)
[2020-12-02] MEDS: traZODone HCL 50 MG TABLET 100 MG PO (22:46)
[2020-12-03 06:00] VITALS: BP 106/59; PULSE 82; RESP 16; TEMP 36.6; O2SAT 95
[2020-12-03 06:44] LABS: Glucose, Whole Blood 136 mg/dL (60-115)
[2020-12-03] MEDS: Acetaminophen 325 MG TABLET 650 MG PO ×2 (09:16→17:18)
[2020-12-03] MEDS: ARIPiprazole 2 MG TABLET PO (09:17)
[2020-12-03] MEDS: Aspirin Enteric Coated 81 MG TABLET.DR PO (09:17)
[2020-12-03] MEDS: Folic Acid 1 MG TABLET PO (09:17)
[2020-12-03] MEDS: metFORMIN HCl ER 500 MG TAB.ER.24H PO (09:17)
[2020-12-03] MEDS: hydroCHLOROthiazide 25 MG TABLET PO (09:17)
[2020-12-03] MEDS: Atorvastatin Calcium 40 MG TABLET PO (09:18)
[2020-12-03 09:22] VITALS: BP 93/50; PULSE 81
[2020-12-03] MEDS: Fluticasone Propionate Nasal 16 GM SPRAY 1 SPRAY NOSTRIL-B ×2 (09:22→21:47)
--- NOTE | 2020-12-03 14:31 | P.PNPSI_ITS ---
Subjective Subjective Date of Service: 12/03/20 Reason For Visit: Overdose Subjective Notes: Conditional Voluntary Interim History: The patient remains dysphoric, less anxious than yesterday but still with no energy. He has not attended groups. He was straight cath since he had over 1000 cc of urine. Medication Compliance: Yes Side effects from medications: No Attending Groups: No Mental Status Exam Mental Status Exam Patient Appearance: Disheveled Patient Orientation: Person, Place, Time and Situation Level of Consciousness: Awake Patient Behavior: Guarded and Cooperative Mood Description: Calm, Withdrawn and Depressed Affect Description: Constricted Patient Cognition Impaired: No Ability to Follow Directions: Good Speech Pattern: Clear Memory Description: Intact Hallucinations: None Delusions: Not Present Thought Process: Goal Oriented Thought Content: positive for Intact Depressive Symptoms: Insomnia, Sleeping More Than Usual, Feelings of Worthlessness, Hopelessness and Isolating-Friends/Family Judgement: Fair Diagnostics Vital Signs (24Hr): Vital Signs - 24 hr 12/02/20 17:51 12/03/20 06:00 12/03/20 09:22 Temperature 97.9 F 97.8 F Pulse Rate 88 82 81 Respiratory Rate 18 16 Blood Pressure 111/66 106/59 L 93/50 L Pulse Oximetry 96 95 Body Mass Index 27.1 Labs Results: 11/30/20 14:00 12/01/20 07:54 Labs: Laboratory Results - last 48 hr 12/01/20 12/02/20 12/02/20 16:49 11:29 16:46 POC Glucose 121 H 151 H 129 H 12/03/20 06:40 POC Glucose 136 H Medications Medications Current Medications Generic Name Dose Route Start Last Admin Trade Name Freq PRN Reason Stop Dose Admin Acetaminophen 650 mg 11/26/20 21:22 12/03/20 09:16 Acetaminophen 325 Mg Tablet PO 650 mg Q6H PRN Administration Pain, Mild (Pain Scale 1-3) Al Hydroxide/Mg Hydroxide 30 ml 11/23/20 15:58 Magnesium Hydrox/Alum Hydrox 30 Ml Oral.Susp PO Q6H PRN Heartburn/Nausea Aripiprazole 5 mg 12/04/20 09:00 Aripiprazole 5 Mg Tablet PO DAILY ABDON Aspirin 81 mg 11/25/20 09:00 12/03/20 09:17 Aspirin Enteric Coated 81 Mg Tablet. PO 81 mg DAILY ABDON Administration Atorvastatin Calcium 40 mg 11/25/20 09:00 12/03/20 09:18 Atorvastatin Calcium 40 Mg Tablet PO 40 mg DAILY ABDON Administration Fluoxetine HCl 40 mg 12/01/20 21:00 12/02/20 21:40 Fluoxetine Hcl 20 Mg Capsule PO 40 mg BEDTIME ABDON Administration Fluticasone Propionate 1 spray 11/24/20 21:00 12/03/20 09:22 Fluticasone Propionate Nasal 16 Gm [place] NOSTRIL-B 1 spray BID ABDON Administration Folic Acid 1 mg 11/25/20 09:00 12/03/20 09:17 Folic Acid 1 Mg Tablet PO 1 mg DAILY ABDON Administration Hydrochlorothiazide 25 mg 11/25/20 09:00 12/03/20 09:17 Hydrochlorothiazide 25 Mg Tablet PO 25 mg DAILY ABDON Administration Protocol Ketoconazole 1 appl 11/25/20 09:00 12/03/20 09:25 Ketoconazole 2 % Shampoo 120 Ml Btl TOPICAL Not Given DAILY [facility] Protocol Lisinopril 10 mg 11/25/20 09:00 12/03/20 09:22 Lisinopril 10 Mg Tablet PO Not Given DAILY [facility] Protocol Magnesium Hydroxide 30 ml 11/23/20 15:58 Milk Of Magnesia 30 Ml Oral.Susp PO DAILY PRN Constipation Metformin HCl 500 mg 11/25/20 09:00 12/03/20 09:17 Metformin Hcl Er 500 Mg Tab.Er.24h PO 500 mg DAILY ABDON Administration Tamsulosin HCl 0.4 mg 11/24/20 17:30 12/02/20 17:39 Tamsulosin Hcl 0.4 Mg Capsule PO 0.4 mg DAILY@1730 ABDON Administration Trazodone HCl 100 mg 11/25/20 00:59 12/02/20 22:46 Trazodone Hcl 50 Mg Tablet PO 100 mg BEDTIME PRN Administration insomnia Allergies Allergies Allergy/AdvReac Type Severity Reaction Status Date / Time No Known Drug Allergies Allergy Unknown NONE Verified 11/23/20 22:08 [NO KNOWN DRUG ALLERGIES] Assessment & Plan Assessment & Plan (1) Major depressive disorder: Qualifiers: Major depression recurrence: recurrent Active/Remission status: currently active Major depression episode severity: severe Psychotic features: without psychotic features Qualified Code(s): F33.2 - Major depressive disorder, recurrent severe without psychotic features Status: Acute Code(s): F32.9 - Major depressive disorder, single episode, unspecified Assessment and Plan: The patient is a middle age male with a previou history of MDD with suicidality, who relapsed on depression after several psychosocial stressors such as poor social support, loosing driving license and bad housing . Plan: - Increase Abilify up to 5 mg. - Continue Prozac to 40 mg at hs Greater than 50% of the session was spent on counseling and/or coordination of care Greater than 50% of the session was spent on counseling and/or coordination of care Reason for contiued inpatient stay Substantial Risk for: harm to self, inability to function, rapid decompensation and med/psych decompensation
[2020-12-03] MEDS: Tamsulosin HCL 0.4 MG CAPSULE PO (16:39)
[2020-12-03 17:50] VITALS: BP 125/77; PULSE 95; TEMP 36.6
[2020-12-03 22:10] LABS: Glucose, Whole Blood 176 mg/dL (60-115)
[2020-12-03] MEDS: traZODone HCL 50 MG TABLET 100 MG PO (23:09)
[2020-12-04] MEDS: Acetaminophen 325 MG TABLET 650 MG PO ×3 (05:48→21:35)
[2020-12-04 05:54] VITALS: BP 134/68; PULSE 77; RESP 16; TEMP 36.8; O2SAT 96
[2020-12-04 06:03] LABS: Glucose, Whole Blood 101 mg/dL (60-115)
[2020-12-04] MEDS: metFORMIN HCl ER 500 MG TAB.ER.24H PO (08:39)
[2020-12-04] MEDS: hydroCHLOROthiazide 25 MG TABLET PO (08:39)
[2020-12-04 08:40] VITALS: BP 114/67; PULSE 87
[2020-12-04] MEDS: Folic Acid 1 MG TABLET PO (08:40)
[2020-12-04] MEDS: ARIPiprazole 5 MG TABLET PO (08:40)
[2020-12-04] MEDS: Aspirin Enteric Coated 81 MG TABLET.DR PO (08:40)
[2020-12-04] MEDS: Atorvastatin Calcium 40 MG TABLET PO (08:40)
[2020-12-04] MEDS: lisinopriL 10 MG TABLET PO (08:40)
[2020-12-04] MEDS: Fluticasone Propionate Nasal 16 GM SPRAY 1 SPRAY NOSTRIL-B ×2 (08:49→20:59)
[2020-12-04 10:05] LABS: Alanine Aminotransferase 39 U/L (0-40); Albumin Level 3.8 g/dL (3.5-5.0); Alkaline Phosphatase 217 U/L (39-117); Anion Gap 13 (12-20); Aspartate Amino Transferase 16 U/L (5-37); Bilirubin Total 0.3 mg/dL (0.0-1.0); Blood Urea Nitrogen 16 mg/dL (9-16); Calcium 8.9 mg/dL (8.4-10.2); Carbon Dioxide 30 mmol/L (22-29); Chloride 98 mmol/L (96-108); Creatinine Clr Calc Pharmacy 86.9; Estimated Glomerular Filt Rate > 60; Glucose Random 155 mg/dL (60-115); Potassium 3.5 mmol/L (3.3-5.1); Sodium 137 mmol/L (135-145); Total Protein 6.7 g/dL (6.5-8.0)
--- NOTE | 2020-12-04 10:25 | HO.PSYCHPN ---
Subjective Subjective Date of Service: 12/05/20 Reason For Visit: Overdose Interim History: Mr. Sethi reports slight improvement in symptoms of depression in that he notes that he has been talking more to peers and staff and has been more visible in the unit. However, he continues to isolate quite a bit despite being encouraged to attend assigned groups. He does report that knowing that he will go to different living arrangement- rest home- has improved his mood. He denies SI/HI. He denies VH/AH. He does report some somnolence during the day that he does not necessarily attributes to his depressed mood. He continues on bladder scans for urinary retention- following CMP for renal function/electrolytes. MSE Appearance: casually groomed, fair hygiene, in NAD Behavior: calm, cooperative Psychomotor: no agitation or retardation noted Speech: clear, normal rate/rhythm/volume, spontaneous TP: linear TC: no signs of psychosis, slightly more hopeful Mood: better Affect:blunted SI:denies HI:denies AH/VH:denies Delusions:no delusional content reported Insight/judgment:fair x 2. Memory/cog: alert, oriented x 3. grossly intact to conversational testing. Review of Systems Genitourinary: Reports oliguria, Reports difficulty urinating and Reports urinary hesitancy Diagnostics Vital Signs (24Hr): Vital Signs - 24 hr 12/04/20 16:10 12/04/20 21:09 12/05/20 06:00 Temperature 98.5 F 98 F 96.6 F L Pulse Rate 105 H 93 85 Respiratory Rate 16 Blood Pressure 91/54 L 115/63 118/57 L Pulse Oximetry 96 12/05/20 08:07 Temperature Pulse Rate 75 Respiratory Rate Blood Pressure 113/63 Pulse Oximetry Body Mass Index 27.1 Labs Results: 12/05/20 09:02 12/04/20 09:11 Labs: Laboratory Results - last 48 hr 12/03/20 12/04/20 12/04/20 22:05 05:46 09:11 WBC RBC Hgb Hct MCV MCH MCHC RDW Plt Count MPV Immature Gran % (Auto) Neut % (Auto) Lymph % (Auto) [place] % (Auto) Eos % (Auto) Baso % (Auto) Lymph # (Auto) [place] # (Auto) Eos # (Auto) Baso # (Auto) Abs Immat Gran (auto) Absolute Neuts (auto) Absolute Nucleated RBC Nucleated RBC % (auto) Sodium 137 Potassium 3.5 Chloride 98 Carbon Dioxide 30 H Anion Gap 13 BUN 16 Creatinine 0.83 Estim Creat Clear Calc 86.9 Estimated GFR > 60 POC Glucose 176 H 101 Random Glucose 155 H D Calcium 8.9 Total Bilirubin 0.3 GGT AST 16 ALT 39 Alkaline Phosphatase 217 H D Ammonia Total Protein 6.7 Albumin 3.8 Lipase 12/04/20 12/05/20 12/05/20 21:19 05:33 09:02 WBC 16.7 H RBC 4.53 L Hgb 13.6 L Hct 40.5 L MCV 89.4 MCH 30.0 MCHC 33.6 RDW 12.5 Plt Count 383 MPV 9.1 L Immature Gran % (Auto) 0.9 H Neut % (Auto) 71.3 Lymph % (Auto) 16.2 L [place] % (Auto) 7.2 Eos % (Auto) 3.7 Baso % (Auto) 0.7 Lymph # (Auto) 2.7 [place] # (Auto) 1.2 Eos # (Auto) 0.6 H Baso # (Auto) 0.1 Abs Immat Gran (auto) 0.15 H Absolute Neuts (auto) 11.9 H Absolute Nucleated RBC 0.000 Nucleated RBC % (auto) 0.0 Sodium Potassium Chloride Carbon Dioxide Anion Gap BUN Creatinine Estim Creat Clear Calc Estimated GFR POC Glucose 113 96 Random Glucose Calcium Total Bilirubin GGT AST ALT Alkaline Phosphatase Ammonia Total Protein Albumin Lipase 12/05/20 12/05/20 12/05/20 09:02 09:02 09:02 WBC RBC Hgb Hct MCV MCH MCHC RDW Plt Count MPV Immature Gran % (Auto) Neut % (Auto) Lymph % (Auto) [place] % (Auto) Eos % (Auto) Baso % (Auto) Lymph # (Auto) [place] # (Auto) Eos # (Auto) Baso # (Auto) Abs Immat Gran (auto) Absolute Neuts (auto) Absolute Nucleated RBC Nucleated RBC % (auto) Sodium Potassium Chloride Carbon Dioxide Anion Gap BUN Creatinine Estim Creat Clear Calc Estimated GFR POC Glucose Random Glucose Calcium Total Bilirubin GGT 48 AST ALT Alkaline Phosphatase Ammonia 39 Total Protein Albumin Lipase 24 Medications Medications Current Medications Generic Name Dose Route Start Last Admin Trade Name Freq PRN Reason Stop Dose Admin Acetaminophen 650 mg 11/26/20 21:22 12/05/20 05:52 Acetaminophen 325 Mg Tablet PO 650 mg Q6H PRN Administration Pain, Mild (Pain Scale 1-3) Al Hydroxide/Mg Hydroxide 30 ml 11/23/20 15:58 Magnesium Hydrox/Alum Hydrox 30 Ml Oral.Susp PO Q6H PRN Heartburn/Nausea Aripiprazole 5 mg 12/04/20 09:00 12/05/20 08:07 Aripiprazole 5 Mg Tablet PO 5 mg DAILY ABDON Administration Aspirin 81 mg 11/25/20 09:00 12/05/20 08:08 Aspirin Enteric Coated 81 Mg Tablet.Dr PO 81 mg DAILY ABDON Administration Atorvastatin Calcium 40 mg 11/25/20 09:00 12/05/20 08:07 Atorvastatin Calcium 40 Mg Tablet PO 40 mg DAILY ABDON Administration Fluoxetine HCl 40 mg 12/01/20 21:00 12/04/20 21:06 Fluoxetine Hcl 20 Mg Capsule PO Not Given BEDTIME ABDON Fluticasone Propionate 1 spray 11/24/20 21:00 12/05/20 08:08 Fluticasone Propionate Nasal 16 Gm [place] NOSTRIL-B 1 spray BID ABDON Administration Folic Acid 1 mg 11/25/20 09:00 12/05/20 08:07 Folic Acid 1 Mg Tablet PO 1 mg DAILY ABDON Administration Hydrochlorothiazide 25 mg 11/25/20 09:00 12/05/20 08:07 Hydrochlorothiazide 25 Mg Tablet PO 25 mg DAILY ABDON Administration Protocol Ketoconazole 1 appl 11/25/20 09:00 12/05/20 08:10 Ketoconazole 2 % Shampoo 120 Ml Btl TOPICAL Not Given DAILY [facility] Protocol Lisinopril 10 mg 11/25/20 09:00 12/05/20 08:07 Lisinopril 10 Mg Tablet PO 10 mg DAILY ABDON Administration Protocol Magnesium Hydroxide 30 ml 11/23/20 15:58 Milk Of Magnesia 30 Ml Oral.Susp PO DAILY PRN Constipation Metformin HCl 500 mg 11/25/20 09:00 12/05/20 08:07 Metformin Hcl Er 500 Mg Tab.Er.24h PO 500 mg DAILY ABDON Administration Tamsulosin HCl 0.4 mg 11/24/20 17:30 12/04/20 16:39 Tamsulosin Hcl 0.4 Mg Capsule PO 0.4 mg DAILY@1730 ABDON Administration Trazodone HCl 100 mg 11/25/20 00:59 12/03/20 23:09 Trazodone Hcl 50 Mg Tablet PO 100 mg BEDTIME PRN Administration insomnia Allergies Allergies Allergy/AdvReac Type Severity Reaction Status Date / Time No Known Drug Allergies Allergy Unknown NONE Verified 11/23/20 22:08 [NO KNOWN DRUG ALLERGIES] Assessment & Plan Assessment & Plan (1) Major depressive disorder: Qualifiers: Major depression recurrence: recurrent Active/Remission status: currently active Major depression episode severity: severe Psychotic features: without psychotic features Qualified Code(s): F33.2 - Major depressive disorder, recurrent severe without psychotic features Status: Acute Code(s): F32.9 - Major depressive disorder, single episode, unspecified Assessment and Plan: Continue per primary treatment team: The patient is a middle age male with a previou history of MDD with suicidality, who relapsed on depression after several psychosocial stressors such as poor social support, loosing driving license and bad housing . Plan: - Increase Abilify up to 5 mg. - Continue Prozac to 40 mg at hs Greater than 50% of the session was spent on counseling and/or coordination of care Greater than 50% of the session was spent on counseling and/or coordination of care Reason for contiued inpatient stay Substantial Risk for: harm to self
[2020-12-04 16:10] VITALS: BP 91/54; PULSE 105; TEMP 36.9
[2020-12-04] MEDS: Tamsulosin HCL 0.4 MG CAPSULE PO (16:39)
[2020-12-04 21:09] VITALS: BP 115/63; PULSE 93; TEMP 36.6
[2020-12-04 21:29] LABS: Glucose, Whole Blood 113 mg/dL (60-115)
[2020-12-05 05:46] LABS: Glucose, Whole Blood 96 mg/dL (60-115)
[2020-12-05] MEDS: Acetaminophen 325 MG TABLET 650 MG PO ×2 (05:52→16:06)
[2020-12-05 06:00] VITALS: BP 118/57; PULSE 85; RESP 16; TEMP 35.9; O2SAT 96
[2020-12-05 08:07] VITALS: BP 113/63; PULSE 75
[2020-12-05] MEDS: Atorvastatin Calcium 40 MG TABLET PO (08:07)
[2020-12-05] MEDS: lisinopriL 10 MG TABLET PO (08:07)
[2020-12-05] MEDS: ARIPiprazole 5 MG TABLET PO (08:07)
[2020-12-05] MEDS: hydroCHLOROthiazide 25 MG TABLET PO (08:07)
[2020-12-05] MEDS: Folic Acid 1 MG TABLET PO (08:07)
[2020-12-05] MEDS: metFORMIN HCl ER 500 MG TAB.ER.24H PO (08:07)
[2020-12-05] MEDS: Aspirin Enteric Coated 81 MG TABLET.DR PO (08:08)
[2020-12-05] MEDS: Fluticasone Propionate Nasal 16 GM SPRAY 1 SPRAY NOSTRIL-B ×2 (08:08→21:37)
[2020-12-05 09:15] LABS: MANUAL DIFF FLAG NO
[2020-12-05 09:17] LABS: Basophils Absolute Auto 0.1 X10*3/uL (0.0-0.2); Basophils Percent Auto 0.7 % (0-2); Eosinophils Absolute Auto 0.6 X10*3/uL (0.0-0.4); Eosinophils Percent Auto 3.7 % (0-4); Hematocrit 40.5 % (42-52); Hemoglobin 13.6 g/dl (14.0-18.0); Imm Gran Abs Auto 0.15 X10*3/uL (0.00-0.03); Imm Gran Pct Auto 0.9 % (0.0-0.4); Lymphocytes Absolute Auto 2.7 X10*3/uL (1.2-4.9); Lymphocytes Percent Auto 16.2 % (20-40); Mean Corpuscular HGB Conc 33.6 g/dl (31.0-36.0); Mean Corpuscular Volume 89.4 fL (80-98); Mean Platelet Volume 9.1 fL (9.4-12.4); Monocytes Absolute Auto 1.2 X10*3/uL (0.1-1.2); Monocytes Percent Auto 7.2 % (2-11); Neutrophils Absolute Auto 11.9 X10*3/uL (2.0-8.3); Neutrophils Percent Auto 71.3 % (45-73); Platelet Count 383 X10*3/uL (160-400); Red Blood Count 4.53 X10*6/uL (4.60-5.80); Red Cell Distribution Width 12.5 % (11.0-16.0); White Blood Count 16.7 X10*3/uL (4.8-10.8)
[2020-12-05 09:39] LABS: Ammonia 39 umol/L (13-55)
[2020-12-05 09:47] LABS: Gamma Glutamyl Transpeptidase 48 U/L (11-51); Lipase 24 U/L (8-78)
--- NOTE | 2020-12-05 10:31 | P.PNPSI_ITS ---
Subjective Subjective Date of Service: 12/05/20 Reason For Visit: Overdose Interim History: Mr. Sethi reports sleeping better. He reports subjective improvement in his mood in part because he will not return to his previous apartment complexes but instead to rest home. He denies SI/HI. He reports he slept better last night. He denies VH/AH. He does report somnolence during day, not related to his mood according to pt. He continues on bladder scans for urinary retention- following CMP for renal function/electrolytes. MSE Appearance: casually groomed, fair hygiene, in NAD Behavior: calm, cooperative Psychomotor: no agitation or retardation noted Speech: clear, normal rate/rhythm/volume, spontaneous TP: linear TC: no signs of psychosis, slightly more hopeful Mood: better Affect:blunted SI:denies HI:denies AH/VH:denies Delusions:no delusional content reported Insight/judgment:fair x 2. Memory/cog: alert, oriented x 3. grossly intact to conversational testing. Review of Systems Genitourinary: Reports oliguria, Reports difficulty urinating and Reports urinary hesitancy Diagnostics Vital Signs (24Hr): Vital Signs - 24 hr 12/04/20 16:10 12/04/20 21:09 12/05/20 06:00 Temperature 98.5 F 98 F 96.6 F L Pulse Rate 105 H 93 85 Respiratory Rate 16 Blood Pressure 91/54 L 115/63 118/57 L Pulse Oximetry 96 12/05/20 08:07 Temperature Pulse Rate 75 Respiratory Rate Blood Pressure 113/63 Pulse Oximetry Body Mass Index 27.1 Labs Results: 12/05/20 09:02 12/04/20 09:11 Labs: Laboratory Results - last 48 hr 12/03/20 12/04/20 12/04/20 22:05 05:46 09:11 WBC RBC Hgb Hct MCV MCH MCHC RDW Plt Count MPV Immature Gran % (Auto) Neut % (Auto) Lymph % (Auto) [place] % (Auto) Eos % (Auto) Baso % (Auto) Lymph # (Auto) [place] # (Auto) Eos # (Auto) Baso # (Auto) Abs Immat Gran (auto) Absolute Neuts (auto) Absolute Nucleated RBC Nucleated RBC % (auto) Sodium 137 Potassium 3.5 Chloride 98 Carbon Dioxide 30 H Anion Gap 13 BUN 16 Creatinine 0.83 Estim Creat Clear Calc 86.9 Estimated GFR > 60 POC Glucose 176 H 101 Random Glucose 155 H D Calcium 8.9 Total Bilirubin 0.3 GGT AST 16 ALT 39 Alkaline Phosphatase 217 H D Ammonia Total Protein 6.7 Albumin 3.8 Lipase 12/04/20 12/05/20 12/05/20 21:19 05:33 09:02 WBC 16.7 H RBC 4.53 L Hgb 13.6 L Hct 40.5 L MCV 89.4 MCH 30.0 MCHC 33.6 RDW 12.5 Plt Count 383 MPV 9.1 L Immature Gran % (Auto) 0.9 H Neut % (Auto) 71.3 Lymph % (Auto) 16.2 L [place] % (Auto) 7.2 Eos % (Auto) 3.7 Baso % (Auto) 0.7 Lymph # (Auto) 2.7 [place] # (Auto) 1.2 Eos # (Auto) 0.6 H Baso # (Auto) 0.1 Abs Immat Gran (auto) 0.15 H Absolute Neuts (auto) 11.9 H Absolute Nucleated RBC 0.000 Nucleated RBC % (auto) 0.0 Sodium Potassium Chloride Carbon Dioxide Anion Gap BUN Creatinine Estim Creat Clear Calc Estimated GFR POC Glucose 113 96 Random Glucose Calcium Total Bilirubin GGT AST ALT Alkaline Phosphatase Ammonia Total Protein Albumin Lipase 12/05/20 12/05/20 12/05/20 09:02 09:02 09:02 WBC RBC Hgb Hct MCV MCH MCHC RDW Plt Count MPV Immature Gran % (Auto) Neut % (Auto) Lymph % (Auto) [place] % (Auto) Eos % (Auto) Baso % (Auto) Lymph # (Auto) [place] # (Auto) Eos # (Auto) Baso # (Auto) Abs Immat Gran (auto) Absolute Neuts (auto) Absolute Nucleated RBC Nucleated RBC % (auto) Sodium Potassium Chloride Carbon Dioxide Anion Gap BUN Creatinine Estim Creat Clear Calc Estimated GFR POC Glucose Random Glucose Calcium Total Bilirubin GGT 48 AST ALT Alkaline Phosphatase Ammonia 39 Total Protein Albumin Lipase 24 Medications Medications Current Medications Generic Name Dose Route Start Last Admin Trade Name Freq PRN Reason Stop Dose Admin Acetaminophen 650 mg 11/26/20 21:22 12/05/20 05:52 Acetaminophen 325 Mg Tablet PO 650 mg Q6H PRN Administration Pain, Mild (Pain Scale 1-3) Al Hydroxide/Mg Hydroxide 30 ml 11/23/20 15:58 Magnesium Hydrox/Alum Hydrox 30 Ml Oral.Susp PO Q6H PRN Heartburn/Nausea Aripiprazole 5 mg 12/04/20 09:00 12/05/20 08:07 Aripiprazole 5 Mg Tablet PO 5 mg DAILY ABDON Administration Aspirin 81 mg 11/25/20 09:00 12/05/20 08:08 Aspirin Enteric Coated 81 Mg Tablet.Dr PO 81 mg DAILY ABDON Administration Atorvastatin Calcium 40 mg 11/25/20 09:00 12/05/20 08:07 Atorvastatin Calcium 40 Mg Tablet PO 40 mg DAILY ABDON Administration Fluoxetine HCl 40 mg 12/01/20 21:00 12/04/20 21:06 Fluoxetine Hcl 20 Mg Capsule PO Not Given BEDTIME ABDON Fluticasone Propionate 1 spray 11/24/20 21:00 12/05/20 08:08 Fluticasone Propionate Nasal 16 Gm [place] NOSTRIL-B 1 spray BID ABDON Administration Folic Acid 1 mg 11/25/20 09:00 12/05/20 08:07 Folic Acid 1 Mg Tablet PO 1 mg DAILY ABDON Administration Hydrochlorothiazide 25 mg 11/25/20 09:00 12/05/20 08:07 Hydrochlorothiazide 25 Mg Tablet PO 25 mg DAILY ABDON Administration Protocol Ketoconazole 1 appl 11/25/20 09:00 12/05/20 08:10 Ketoconazole 2 % Shampoo 120 Ml Btl TOPICAL Not Given DAILY [facility] Protocol Lisinopril 10 mg 11/25/20 09:00 12/05/20 08:07 Lisinopril 10 Mg Tablet PO 10 mg DAILY ABDON Administration Protocol Magnesium Hydroxide 30 ml 11/23/20 15:58 Milk Of Magnesia 30 Ml Oral.Susp PO DAILY PRN Constipation Metformin HCl 500 mg 11/25/20 09:00 12/05/20 08:07 Metformin Hcl Er 500 Mg Tab.Er.24h PO 500 mg DAILY ABDON Administration Tamsulosin HCl 0.4 mg 11/24/20 17:30 12/04/20 16:39 Tamsulosin Hcl 0.4 Mg Capsule PO 0.4 mg DAILY@1730 ABDON Administration Trazodone HCl 100 mg 11/25/20 00:59 12/03/20 23:09 Trazodone Hcl 50 Mg Tablet PO 100 mg BEDTIME PRN Administration insomnia Allergies Allergies Allergy/AdvReac Type Severity Reaction Status Date / Time No Known Drug Allergies Allergy Unknown NONE Verified 11/23/20 22:08 [NO KNOWN DRUG ALLERGIES] Assessment & Plan Assessment & Plan (1) Major depressive disorder: Qualifiers: Major depression recurrence: recurrent Active/Remission status: syeda rutherford active Major depression episode severity: severe Psychotic features: without psychotic features Qualified Code(s): F33.2 - Major depressive disorder, recurrent severe without psychotic features Status: Acute Code(s): F32.9 - Major depressive disorder, single episode, unspecified Assessment and Plan: Continue per primary treatment team: The patient is a middle age male with a previou history of MDD with suicidality, who relapsed on depression after several psychosocial stressors such as poor social support, loosing driving license and bad housing . Plan: - Increase Abilify up to 5 mg. - Continue Prozac to 40 mg at hs Greater than 50% of the session was spent on counseling and/or coordination of care Greater than 50% of the session was spent on counseling and/or coordination of care Reason for contiued inpatient stay Substantial Risk for: harm to self
[2020-12-05 18:00] VITALS: BP 114/72; PULSE 108; TEMP 36.6; O2SAT 98
[2020-12-05] MEDS: Tamsulosin HCL 0.4 MG CAPSULE PO (18:38)
[2020-12-05 21:09] LABS: Glucose, Whole Blood 148 mg/dL (60-115)
[2020-12-05] MEDS: FLUoxetine HCl 20 MG CAPSULE 40 MG PO (21:37)
--- NOTE | 2020-12-05 23:30 | PC.NURSE ---
Patient able to void 650 mls.by 1730 then was bladder scanned at 1730 for 450 residual. Patient said he did not want a straight catherization at that time. This rfp writer waited until 2100 to allow patient additional time to void on his own. Pat was able to void 650 mls. Another bladder scan was done and the reading was 688. Straight catherization was for 650 mls.
[2020-12-06] MEDS: Acetaminophen 325 MG TABLET 650 MG PO ×2 (06:21→18:04)
[2020-12-06 06:54] VITALS: BP 122/69; PULSE 111; TEMP 36.8; O2SAT 97
[2020-12-06 07:12] LABS: Glucose, Whole Blood 187 mg/dL (60-115)
[2020-12-06] MEDS: Folic Acid 1 MG TABLET PO (08:47)
[2020-12-06] MEDS: hydroCHLOROthiazide 25 MG TABLET PO (08:47)
[2020-12-06 08:48] VITALS: BP 144/80; PULSE 83
[2020-12-06] MEDS: Atorvastatin Calcium 40 MG TABLET PO (08:48)
[2020-12-06] MEDS: Aspirin Enteric Coated 81 MG TABLET.DR PO (08:48)
[2020-12-06] MEDS: ARIPiprazole 5 MG TABLET PO (08:48)
[2020-12-06] MEDS: metFORMIN HCl ER 500 MG TAB.ER.24H PO (08:48)
[2020-12-06] MEDS: lisinopriL 10 MG TABLET PO (08:48)
[2020-12-06] MEDS: Fluticasone Propionate Nasal 16 GM SPRAY 1 SPRAY NOSTRIL-B ×2 (08:49→22:30)
--- NOTE | 2020-12-06 12:08 | HO.PSYCHPN ---
Subjective Subjective Date of Service: 12/06/20 Reason For Visit: Overdose Subjective Notes: Conditional Voluntary Interim History: The patient continues to present with uirinary retention and sporadically allows nursing to straight cath him. He has attended a few groups and he seems less dysphoric. On physical exam, he presented with some tremors and cogwheel so Abilify would be reduced to 2 mg po qam Medication Compliance: Yes Side effects from medications: No Attending Groups: Intermittent Mental Status Exam Mental Status Exam Patient Appearance: Disheveled Patient Orientation: Person, Place, Time and Situation Level of Consciousness: Awake Patient Behavior: Appropriate Mood Description: Withdrawn Affect Description: Constricted Patient Cognition Impaired: No Ability to Follow Directions: Good Speech Pattern: Clear Memory Description: Intact Hallucinations: None Delusions: Not Present Thought Process: Goal Oriented Thought Content: positive for Intact Judgement: Fair Diagnostics Vital Signs (24Hr): Vital Signs - 24 hr 12/05/20 18:00 12/06/20 06:54 12/06/20 08:48 Temperature 97.8 F 98.3 F Pulse Rate 108 H 111 H 83 Blood Pressure 114/72 122/69 144/80 H Pulse Oximetry 98 97 Body Mass Index 27.1 Labs Results: 12/05/20 09:02 12/04/20 09:11 Labs: Laboratory Results - last 48 hr 12/04/20 12/05/20 12/05/20 21:19 05:33 09:02 WBC 16.7 H RBC 4.53 L Hgb 13.6 L Hct 40.5 L MCV 89.4 MCH 30.0 MCHC 33.6 RDW 12.5 Plt Count 383 MPV 9.1 L Immature Gran % (Auto) 0.9 H Neut % (Auto) 71.3 Lymph % (Auto) 16.2 L [place] % (Auto) 7.2 Eos % (Auto) 3.7 Baso % (Auto) 0.7 Lymph # (Auto) 2.7 [place] # (Auto) 1.2 Eos # (Auto) 0.6 H Baso # (Auto) 0.1 Abs Immat Gran (auto) 0.15 H Absolute Neuts (auto) 11.9 H Absolute Nucleated RBC 0.000 Nucleated RBC % (auto) 0.0 POC Glucose 113 96 GGT Ammonia Lipase 05/16/21 05/16/21 05/16/21 09:02 09:02 09:02 WBC RBC Hgb Hct MCV MCH MCHC RDW Plt Count MPV Immature Gran % (Auto) Neut % (Auto) Lymph % (Auto) [place] % (Auto) Eos % (Auto) Baso % (Auto) Lymph # (Auto) [place] # (Auto) Eos # (Auto) Baso # (Auto) Abs Immat Gran (auto) Absolute Neuts (auto) Absolute Nucleated RBC Nucleated RBC % (auto) POC Glucose GGT 48 Ammonia 39 Lipase 24 12/05/20 12/06/20 21:04 06:31 WBC RBC Hgb Hct MCV MCH MCHC RDW Plt Count MPV Immature Gran % (Auto) Neut % (Auto) Lymph % (Auto) [place] % (Auto) Eos % (Auto) Baso % (Auto) Lymph # (Auto) [place] # (Auto) Eos # (Auto) Baso # (Auto) Abs Immat Gran (auto) Absolute Neuts (auto) Absolute Nucleated RBC Nucleated RBC % (auto) POC Glucose 148 H 187 H GGT Ammonia Lipase Medications Medications Current Medications Generic Name Dose Route Start Last Admin Trade Name Freq PRN Reason Stop Dose Admin Acetaminophen 650 mg 11/26/20 21:22 12/06/20 06:21 Acetaminophen 325 Mg Tablet PO 650 mg Q6H PRN Administration Pain, Mild (Pain Scale 1-3) Al Hydroxide/Mg Hydroxide 30 ml 11/23/20 15:58 Magnesium Hydrox/Alum Hydrox 30 Ml Oral.Susp PO Q6H PRN Heartburn/Nausea Aripiprazole 5 mg 12/04/20 09:00 12/06/20 08:48 Aripiprazole 5 Mg Tablet PO 5 mg DAILY ABDON Administration Aspirin 81 mg 11/25/20 09:00 12/06/20 08:48 Aspirin Enteric Coated 81 Mg Tablet. PO 81 mg DAILY ABDON Administration Atorvastatin Calcium 40 mg 11/25/20 09:00 12/06/20 08:48 Atorvastatin Calcium 40 Mg Tablet PO 40 mg DAILY ABDON Administration Fluoxetine HCl 40 mg 12/01/20 21:00 12/05/20 21:37 Fluoxetine Hcl 20 Mg Capsule PO 40 mg BEDTIME ABDON Administration Fluticasone Propionate 1 spray 11/24/20 21:00 12/06/20 08:49 Fluticasone Propionate Nasal 16 Gm [place] NOSTRIL-B 1 spray BID ABDON Administration Folic Acid 1 mg 11/25/20 09:00 12/06/20 08:47 Folic Acid 1 Mg Tablet PO 1 mg DAILY ABDON Administration Hydrochlorothiazide 25 mg 11/25/20 09:00 12/06/20 08:47 Hydrochlorothiazide 25 Mg Tablet PO 25 mg DAILY ABDON Administration Protocol Ketoconazole 1 appl 11/25/20 09:00 12/06/20 08:57 Ketoconazole 2 % Shampoo 120 Ml Btl TOPICAL Not Given DAILY ABDON Protocol Lisinopril 10 mg 11/25/20 09:00 12/06/20 08:48 Lisinopril 10 Mg Tablet PO 10 mg DAILY ABDON Administration Protocol Magnesium Hydroxide 30 ml 11/23/20 15:58 Milk Of Magnesia 30 Ml Oral.Susp PO DAILY PRN Constipation Metformin HCl 500 mg 11/25/20 09:00 12/06/20 08:48 Metformin Hcl Er 500 Mg Tab.Er.24h PO 500 mg DAILY ABODN Administration Tamsulosin HCl 0.4 mg 11/24/20 17:30 12/05/20 18:38 Tamsulosin Hcl 0.4 Mg Capsule PO 0.4 mg DAILY@1730 ABDON Administration Trazodone HCl 100 mg 11/25/20 00:59 12/03/20 23:09 Trazodone Hcl 50 Mg Tablet PO 100 mg BEDTIME PRN Administration insomnia Allergies Allergies Allergy/AdvReac Type Severity Reaction Status Date / Time No Known Drug Allergies Allergy Unknown NONE Verified 11/23/20 22:08 [NO KNOWN DRUG ALLERGIES] Assessment & Plan Assessment & Plan (1) Major depressive disorder: Qualifiers: Major depression recurrence: recurrent Active/Remission status: currently active Major depression episode severity: severe Psychotic features: without psychotic features Qualified Code(s): F33.2 - Major depressive disorder, recurrent severe without psychotic features Status: Acute Code(s): F32.9 - Major depressive disorder, single episode, unspecified Assessment and Plan: Continue per primary treatment team: The patient is a middle age male with a previou history of MDD with suicidality, who relapsed on depression after several psychosocial stressors such as poor social support, loosing driving license and bad housing . Plan: - Lower Abilify up to 2 mg. - Continue Prozac to 40 mg at hs Greater than 50% of the session was spent on counseling and/or coordination of care Greater than 50% of the session was spent on counseling and/or coordination of care Reason for contiued inpatient stay Substantial Risk for: inability to function and rapid decompensation
--- NOTE | 2020-12-06 14:52 | PC.NURSE ---
Pt participated on [employer] screen on this date, scored 26/30, indicating cognition is within normal limits. Difficulty noted on delayed recall. Pt got extra point added to final score due to not finishing high school. MD and nurse made aware.
[2020-12-06 16:30] VITALS: BP 121/58; PULSE 106; TEMP 36.8
[2020-12-06 16:56] LABS: Glucose, Whole Blood 119 mg/dL (60-115)
[2020-12-06] MEDS: Tamsulosin HCL 0.4 MG CAPSULE PO (18:05)
[2020-12-06] MEDS: FLUoxetine HCl 20 MG CAPSULE 40 MG PO (22:29)
[2020-12-06] MEDS: traZODone HCL 50 MG TABLET 100 MG PO (23:06)
[2020-12-07 05:50] LABS: Glucose, Whole Blood 102 mg/dL (60-115)
[2020-12-07 06:00] VITALS: BP 132/66; PULSE 99; RESP 18; TEMP 36.5; O2SAT 97
[2020-12-07 08:24] VITALS: BP 143/79; PULSE 107
[2020-12-07] MEDS: ARIPiprazole 2 MG TABLET PO (08:24)
[2020-12-07] MEDS: lisinopriL 10 MG TABLET PO (08:24)
[2020-12-07] MEDS: Acetaminophen 325 MG TABLET 650 MG PO ×2 (08:24→17:19)
[2020-12-07] MEDS: metFORMIN HCl ER 500 MG TAB.ER.24H PO (08:25)
[2020-12-07] MEDS: Aspirin Enteric Coated 81 MG TABLET.DR PO (08:25)
[2020-12-07] MEDS: hydroCHLOROthiazide 25 MG TABLET PO (08:25)
[2020-12-07] MEDS: Folic Acid 1 MG TABLET PO (08:25)
[2020-12-07] MEDS: Atorvastatin Calcium 40 MG TABLET PO (08:25)
[2020-12-07] MEDS: Fluticasone Propionate Nasal 16 GM SPRAY 1 SPRAY NOSTRIL-B ×2 (09:27→21:13)
--- NOTE | 2020-12-07 11:57 | P.PNPSI_ITS ---
Subjective Subjective Date of Service: 12/07/20 Reason For Visit: Overdose Subjective Notes: Conditional Voluntary Interim History: The patient's mood has improved, he is future oriented. His cogwheel resolved as soon as we stopped Abilify. Medication Compliance: Yes Side effects from medications: No Attending Groups: Yes Review of Systems Review of Systems Yes all other systems are reviewed and are negative Mental Status Exam Mental Status Exam Patient Appearance: Well Grooomed and Appropriate Patient Orientation: Person, Place, Time and Situation Level of Consciousness: Awake Patient Behavior: Appropriate Mood Description: Calm Affect Description: Constricted Patient Cognition Impaired: No Ability to Follow Directions: Good Speech Pattern: Clear Memory Description: Intact Hallucinations: None Delusions: Not Present Thought Process: Goal Oriented Thought Content: positive for Intact Judgement: Fair Diagnostics Vital Signs (24Hr): Vital Signs - 24 hr 12/06/20 16:30 12/07/20 06:00 12/07/20 08:24 Temperature 98.3 F 97.7 F Pulse Rate 106 H 99 107 H Respiratory Rate 18 Blood Pressure 121/58 L 132/66 143/79 H Pulse Oximetry 97 Body Mass Index 27.1 Labs Results: 12/05/20 09:02 12/04/20 09:11 Labs: Laboratory Results - last 48 hr 12/05/20 12/06/20 12/06/20 21:04 06:31 16:42 POC Glucose 148 H 187 H 119 H 12/07/20 05:28 POC Glucose 102 Medications Medications Current Medications Generic Name Dose Route Start Last Admin Trade Name Freq PRN Reason Stop Dose Admin Acetaminophen 650 mg 11/26/20 21:22 12/07/20 08:24 Acetaminophen 325 Mg Tablet PO 650 mg Q6H PRN Administration Pain, Mild (Pain Scale 1-3) Al Hydroxide/Mg Hydroxide 30 ml 11/23/20 15:58 Magnesium Hydrox/Alum Hydrox 30 Ml Oral.Susp PO Q6H PRN Heartburn/Nausea Aspirin 81 mg 11/25/20 09:00 12/07/20 08:25 Aspirin Enteric Coated 81 Mg Tablet. PO 81 mg DAILY ABDON Administration Atorvastatin Calcium 40 mg 11/25/20 09:00 12/07/20 08:25 Atorvastatin Calcium 40 Mg Tablet PO 40 mg DAILY ABDON Administration Fluoxetine HCl 40 mg 12/01/20 21:00 12/06/20 22:29 Fluoxetine Hcl 20 Mg Capsule PO 40 mg BEDTIME ABDON Administration Fluticasone Propionate 1 spray 11/24/20 21:00 12/07/20 09:27 Fluticasone Propionate Nasal 16 Gm [place] NOSTRIL-B 1 spray BID ABDON Administration Folic Acid 1 mg 11/25/20 09:00 12/07/20 08:25 Folic Acid 1 Mg Tablet PO 1 mg DAILY ABDON Administration Hydrochlorothiazide 25 mg 11/25/20 09:00 12/07/20 08:25 Hydrochlorothiazide 25 Mg Tablet PO 25 mg DAILY ABDON Administration Protocol Ketoconazole 1 appl 11/25/20 09:00 12/07/20 08:46 Ketoconazole 2 % Shampoo 120 Ml Btl TOPICAL Not Given DAILY [facility] Protocol Lisinopril 10 mg 11/25/20 09:00 12/07/20 08:24 Lisinopril 10 Mg Tablet PO 10 mg DAILY ABDON Administration Protocol Magnesium Hydroxide 30 ml 11/23/20 15:58 Milk Of Magnesia 30 Ml Oral.Susp PO DAILY PRN Constipation Metformin HCl 500 mg 11/25/20 09:00 12/07/20 08:25 Metformin Hcl Er 500 Mg Tab.Er.24h PO 500 mg DAILY ABDON Administration Tamsulosin HCl 0.4 mg 11/24/20 17:30 12/06/20 18:05 Tamsulosin Hcl 0.4 Mg Capsule PO 0.4 mg DAILY@1730 ABDON Administration Trazodone HCl 100 mg 11/25/20 00:59 12/06/20 23:06 Trazodone Hcl 50 Mg Tablet PO 100 mg BEDTIME PRN Administration insomnia Allergies Allergies Allergy/AdvReac Type Severity Reaction Status Date / Time No Known Drug Allergies Allergy Unknown NONE Verified 11/23/20 22:08 [NO KNOWN DRUG ALLERGIES] Assessment & Plan Assessment & Plan (1) Major depressive disorder: Qualifiers: Major depression recurrence: recurrent Active/Remission status: currently active Major depression episode severity: severe Psychotic features: without psychotic features Qualified Code(s): F33.2 - Major depressive disorder, recurrent severe without psychotic features Status: Acute Code(s): F32.9 - Major depressive disorder, single episode, unspecified Assessment and Plan: Continue per primary treatment team: The patient is a middle age male with a previous history of MDD with suicidality, who relapsed on depression after several psychosocial stressors such as poor social support, loosing driving license and bad housing . Plan: - Stop Abilify up to 2 mg. - Continue Prozac to 40 mg at hs Greater than 50% of the session was spent on counseling and/or coordination of care Greater than 50% of the session was spent on counseling and/or coordination of care Reason for contiued inpatient stay Substantial Risk for: rapid decompensation and med/psych decompensation
[2020-12-07] MEDS: Tamsulosin HCL 0.4 MG CAPSULE PO (17:19)
[2020-12-07 17:33] VITALS: BP 132/78; PULSE 80; RESP 18; TEMP 36.6; O2SAT 99
[2020-12-07] MEDS: FLUoxetine HCl 20 MG CAPSULE 40 MG PO (21:12)
[2020-12-07 21:49] LABS: Glucose, Whole Blood 141 mg/dL (60-115)
[2020-12-07] MEDS: traZODone HCL 50 MG TABLET 100 MG PO (23:10)
[2020-12-08 05:58] LABS: Glucose, Whole Blood 98 mg/dL (60-115)
[2020-12-08 06:00] VITALS: BP 142/76; PULSE 108; RESP 18; TEMP 36.5; O2SAT 99
[2020-12-08] MEDS: Acetaminophen 325 MG TABLET 650 MG PO (06:06)
[2020-12-08 08:22] VITALS: BP 111/65; PULSE 79
[2020-12-08] MEDS: hydroCHLOROthiazide 25 MG TABLET PO (08:22)
[2020-12-08] MEDS: Aspirin Enteric Coated 81 MG TABLET.DR PO (08:22)
[2020-12-08] MEDS: lisinopriL 10 MG TABLET PO (08:22)
[2020-12-08] MEDS: Folic Acid 1 MG TABLET PO (08:22)
[2020-12-08] MEDS: metFORMIN HCl ER 500 MG TAB.ER.24H PO (08:23)
[2020-12-08] MEDS: Atorvastatin Calcium 40 MG TABLET PO (08:23)
[2020-12-08] MEDS: Fluticasone Propionate Nasal 16 GM SPRAY 1 SPRAY NOSTRIL-B (08:23)
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
== END 2020-12-08 12:40 | disposition other institution (70) | DRG 885 ==
PROVIDERS: Social Worker; Admitting Provider Psychiatry & Neurology Psychiatry; Visit Provider Psychiatry & Neurology Psychiatry
DX: F33.2 Major depressive disorder, recurrent severe without psychotic features (principal); R45.851 Suicidal ideations; I10 Essential (primary) hypertension; E78.5 Hyperlipidemia, unspecified; R33.9 Retention of urine, unspecified; Z87.891 Personal history of nicotine dependence; Z91.5 Personal history of self-harm; Z79.51 Long term (current) use of inhaled steroids; Z79.82 Long term (current) use of aspirin; Z79.84 Long term (current) use of oral hypoglycemic drugs; Z79.899 Other long term (current) drug therapy
CPT/HCPCS: 36415; 80048; 80053; 82140; 82565; 82947; 82977; 83690; 85025; C1758

== ENCOUNTER 2022-05-18 10:37 | Emergency (ER) | payer MEDICARE, SELFPAY ==
[2022-05-18 10:39] VITALS: BP 124/71; BP 132/86; PULSE 101; PULSE 106; RESP 18; TEMP 37.1; O2SAT 95; O2SAT 99; BMI 33.4
[2022-05-18 11:17] LABS: Appearance Urine Clear; Color Urine Yellow; Glucose Urine UA Negative (Negative); Leukocyte Esterase Urine Negative (Negative); Nitrite Urine Negative (Negative); PH 5.5 (5.0-9.0); UMIC TRIGGER UACC YES; Urine Blood Trace (Negative); Urine Ketones Negative (Negative); Urine Protein Negative (Neg-Trace)
[2022-05-18 11:24] LABS: Bacteria Urine None Seen (None Seen); Hyaline Casts Urine 0-2 /LPF (0-2); Squamous Epithelial Cell Urine 0-2 /HPF (0-2); WBC Urine 0-5 /HPF (0-5)
--- NOTE | 2022-05-18 11:25 | ED_ITS ---
HPI - Psych General Chief Complaint: Psychiatric Symptoms Stated Complaint: psych eval Time Seen by Provider: 05/18/22 10:39 Source: patient and EMS Mode of arrival: EMS Limitations: no limitations History of Present Illness HPI Narrative: This is a 67 year old male with a past medical history of depression, high cholesterol, hypertension, diabetes who presents with reports of aggression from the assisted living. Per patient in 2019 he lost his license and since then he was unable to continue working, and unable to remain in his apartment. Additionally he missed manage his medications and was seen here as an overdose in 2020. After that he was placed in assisted living. He tells me he does not want to be there. He tells me he would rather live on his own. He does not feel it is necessary. 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 Patient reports that today while standing in front of the menu he was not happy with the lunch options and started to shake his head and muttering under his breath. He feels like this was seen as aggressive behavior from the assisted living staff. Patient does meet with his therapist. He denies any suicidal or homicidal ideations. He denies any hallucinations or substance use. He is alert and oriented x3. Related Data Home Medications Medication Instructions Recorded Confirmed aspirin 81 mg tablet,delayed 1 tab PO DAILY 07/22/20 11/23/20 release atorvastatin 40 mg tablet 40 mg PO DAILY 07/22/20 11/23/20 folic acid 1 mg tablet 1 tab PO DAILY 07/22/20 11/23/20 hydrochlorothiazide 25 mg tablet 1 tab PO DAILY 07/22/20 11/23/20 lisinopril 10 mg tablet 1 tab PO DAILY 07/22/20 11/23/20 metformin 500 mg tablet,extended 1 tab PO DAILY 07/22/20 11/23/20 release 24 hr fluticasone propionate 50 1 spray intranasal BID 11/17/20 11/23/20 mcg/actuation nasal spray,suspension Previous Rx's Medication Instructions Recorded acetaminophen 325 mg tablet 650 mg PO Q6H PRN Pain, Mild (Pain 12/07/20 Scale 1-3) 30 days #60 tabs aspirin 81 mg tablet,delayed 81 mg PO DAILY 30 days #30 tabs 12/07/20 release atorvastatin 40 mg tablet 40 mg PO DAILY 30 days #30 tabs 12/07/20 fluoxetine 40 mg capsule (Prozac) 40 mg PO QPM 30 days #30 caps 12/07/20 fluticasone propionate 50 1 spray intranasal BID 30 days #1 g 12/07/20 mcg/actuation nasal spray,suspension folic acid 1 mg tablet 1 mg PO DAILY 30 days #30 tabs 12/07/20 hydrochlorothiazide 25 mg tablet 25 mg PO DAILY 30 days #30 tabs 12/07/20 lisinopril 10 mg tablet 10 mg PO DAILY 30 days #30 tabs 12/07/20 metformin 500 mg tablet,extended 500 mg PO DAILY 30 days #30 tabs 12/07/20 release 24 hr tamsulosin 0.4 mg capsule 0.4 mg PO DAILY@1730 30 days 12/07/20 tamsulosin 0.4 mg capsule 0.4 mg PO DAILY@1730 30 days #30 12/07/20 caps trazodone 50 mg tablet 100 mg PO BEDTIME PRN insomnia 30 12/07/20 days Allergies Allergy/AdvReac Type Severity Reaction Status Date / Time No Known Drug Allergies Allergy Unknown NONE Verified 11/23/20 22:08 [NO KNOWN DRUG ALLERGIES] Review of Systems Review of Systems: Yes all other systems are reviewed and are negative Constitutional: Constitutional: Reports no additional constitutional complaints, Denies body ache(s), Denies chills, Denies fever(s), Denies headache(s) and Denies weakness Eyes: Eyes: Reports no additional eye complaints and Denies change in vision ENT: Reports system reviewed and no additional complaints, except as documented, Denies dizziness, Denies headache(s), Denies nasal congestion, Denies nasal discharge and Denies neck pain Cardiovascular: Cardiovascular: Reports no additional cardiovascular complaints, Denies chest pain, Denies leg edema and Denies dyspnea Respiratory: Respiratory: Reports no additional respiratory complaints, Denies cough and Denies dyspnea Gastrointestinal: Gastrointestinal: Reports no additional gastrointestinal complaints, Denies abdominal pain, Denies diarrhea, Denies nausea and Denies vomiting Genitourinary: Genitourinary: Denies urinary incontinence Musculoskeletal: Musculoskeletal: Reports no additional musculoskeletal complaints, Denies back pain, Denies arthralgias, Denies joint swelling, Denies neck pain, Denies numbness and Denies tingling Integumentary/Breasts: Skin/Breast: Reports system reviewed and no additional complaints, except as docu and Denies rash Neurologic: Reports system reviewed and no additional complaints, except as documented, Denies Abnormal speech present, Denies dizziness, Denies headache(s), Denies numbness, Denies tingling and Denies weakness Psychiatric: Psychiatric: Denies anxiety, Denies depression, Denies visual hallucinations, Denies hallucinations, Denies tactile hallucinations, Denies homicidal ideation and Denies suicidal ideation [facility] Past Medical History Attestation statement: The following information was validated with the patient. Source: old records reviewed and nursing notes reviewed Medical History (Reviewed 05/18/22 @ 11: by Diane Burrell NP) Anemia Cognitive impairment Depression Diabetes HTN (hypertension) Hyperlipidemia Psoriasis Stroke Social History Social History Household Members: None Housing: Apartment Do you presently have visiting nurse or other home services: Yes ([facility] services were intermittent, Pt. reports they do not show up regularly) Alcohol intake: former Cigarette Packs Per Day: 2 Cigarettes Per Day: 40.0 Years Smoked: 25 Second Hand Smoke Exposure: Yes Advance Directives: No service: No Current occupational status: disabled Sexual orientation: Straight/Heterosexual Physical Exam Vital Signs: Vital Signs: Last Vital Signs Temp 98.8 F 05/18/22 10:39 Pulse 101 H 05/18/22 10:39 Resp 18 05/18/22 10:39 BP 132/86 05/18/22 10:39 Pulse Ox 95 05/18/22 10:39 O2 Del Method 05/18/22 10:39 BMI result Body Mass Index 33.4 Const: General: cooperative, healthy appearing, comfortable and no acute distress Orientation/consciousness: patient oriented x3 Limitations: no limitations HEENT: Head: Yes normal to inspection Ears: hearing grossly normal bilaterally General nose exam: Normal external nose present Face and sinus: Yes normal facial exam Mouth: Normal oral and palatal mucosa present Throat: Yes posterior oropharynx normal Eyes: General: appearance normal, both eyes and all related structures Pupils: Equal, round and reactive pupils present Neck: Neck: Yes normal visual inspection Chest: Chest palpation & inspection: normal inspection of the chest Resp: Effort & Inspection: normal respiratory effort Auscultation: clear to auscultation bilaterally Cardio: Rate: regular rate Rhythm: regular rhythm Peripheral pulses: Peripheral pulses 2+ throughout GI: Inspection: Yes normal to inspection Palpation (GI): Soft to palpation and nontender Auscultation: normal bowel sounds Back/Spine/Pelvis: Thoracic/Lumbar Spine: thoracic and lumbar spine normal to inspection Skin: General skin exam: no rashes or lesions noted Neuro: General: patient oriented x3, no focal motor deficits and normal sensation to monofilament Cranial nerves: Yes CN's II-XII intact bilaterally and Yes Equal, round and reactive pupils present Cognition (Neuro): normal cognition Speech: No Abnormal speech present Gait exam (Neuro): Normal gait present Motor exam (neuro): 5/5 motor strength present throughout Extrem: General: Yes normal to inspection Course Course Course Narrative: Patient was seen by care team manolo. They spoke to the assisted living. Plan for discharge home. MDM - Psych MDM Narrative Medical decision making narrative: 67-year-old male here with concern forearm the assisted living staff that the patient has had increased aggression at the assisted living. On arrival patient is alert and oriented. He is, cooperative. He has no focal neurological deficits. He is not suicidal or homicidal. No hallucinations. No physical complaints. Will have care team evaluate the patient obtain collateral information from the assisted living prior to disposition Medical Records Attestation: I reviewed the patient's medical records. Lab Data Attestation: I reviewed the patient's lab results. Labs: Lab Results 05/18/22 05/18/22 05/18/22 Range/Units 11:01 11:01 11:01 Urine Color Yellow Urine Appearance Clear Urine pH 5.5 (5.0-9.0) Ur Specific [place] 1.020 (1.005-1.025) Urine Protein Negative (Neg-Trace) mg/dL Urine Glucose (UA) Negative (Negative) mg/dL Urine Ketones Negative (Negative) mg/dL Urine Blood Trace H (Negative) Urine Nitrite Negative (Negative) Ur Leukocyte Esterase Negative (Negative) Urine RBC 3-5 H (0-2) /HPF Urine WBC 0-5 (0-5) /HPF Ur Squamous Epith Cells 0-2 (0-2) /HPF Urine Bacteria None Seen (None Seen) Hyaline Casts 0-2 (0-2) /LPF Urine Opiates Screen Not Detected (Not Detect) Urine Fentanyl Screen Not Detected (Not Detect) Ur Barbiturates Screen Not Detected (Not Detect) Ur Phencyclidine Scrn Not Detected (Not Detect) Ur Amphetamines Screen Not Detected (Not Detect) U Benzodiazepines Scrn Not Detected (Not Detect) Urine Cocaine Screen Not Detected (Not Detect) U Marijuana (THC) Screen Not Detected (Not Detect) COVID-19 (BRET) Negative (Negative) COVID-19 Clin Com See Note Discharge Plan Discharge Clinical Impression: Adjustment disorder Patient Disposition: Home, Self-Care Prescriptions: No Action aspirin 81 mg tablet,delayed release (DR/EC) 1 tab PO DAILY lisinopril 10 mg tablet 1 tab PO DAILY folic acid 1 mg tablet 1 tab PO DAILY hydrochlorothiazide 25 mg tablet 1 tab PO DAILY metformin 500 mg tablet extended release 24 hr 1 tab PO DAILY atorvastatin 40 mg tablet 40 mg PO DAILY fluticasone propionate 50 mcg/actuation spray,suspension 1 spray intranasal BID tamsulosin 0.4 mg Capsule 0.4 mg PO DAILY@1730 30 Days Qty: 30 0RF tamsulosin 0.4 mg Capsule 0.4 mg PO DAILY@1730 30 Days 0RF atorvastatin 40 mg Tablet 40 mg PO DAILY 30 Days Qty: 30 0RF lisinopril 10 mg Tablet 10 mg PO DAILY 30 Days Qty: 30 0RF Protocol: Hold for SBP< HOLD for SBP < : 90 acetaminophen 325 mg Tablet 650 mg PO Q6H PRN (Reason: Pain, Mild (Pain Scale 1-3)) 30 Days Qty: 60 0RF trazodone 50 mg Tablet 100 mg PO BEDTIME PRN (Reason: insomnia) 30 Days 0RF aspirin 81 mg Tablet,Delayed Release (Dr/Ec) 81 mg PO DAILY 30 Days Qty: 30 0RF hydrochlorothiazide 25 mg Tablet 25 mg PO DAILY 30 Days Qty: 30 0RF Protocol: Hold for SBP< HOLD for SBP < : 90 fluticasone propionate 50 mcg/actuation [place],Suspension 1 spray intranasal BID 30 Days Qty: 1 0RF metformin 500 mg Tablet Extended Release 24 Hr 500 mg PO DAILY 30 Days Qty: 30 0RF folic acid 1 mg Tablet 1 mg PO DAILY 30 Days Qty: 30 0RF fluoxetine [Prozac] 40 mg capsule 40 mg PO QPM 30 Days Qty: 30 0RF
[2022-05-18 11:27] LABS: Amphetamine Screen Urine Not Detected (Not Detect); Barbiturates, Urine Not Detected (Not Detect); Benzodiazepines Screen Urine Not Detected (Not Detect); Cannabinoid Screen Urine Not Detected (Not Detect); Cocaine Screen Urine Not Detected (Not Detect); Fentanyl, urine Not Detected (Not Detect); Opiate Screen Urine Not Detected (Not Detect); Phencyclidine Screen Urine Not Detected (Not Detect)
[2022-05-18 12:03] LABS: COVID-19 Test Negative (Negative); IDNOW Serial# 55D5AD1C
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
--- NOTE | 2022-05-18 15:07 | MHC.CARE ---
Care Team spoke to [employer] Sales Support Consultant Lennie Cuevas and she reported pt had a visit with health workers' compensation hearings officer ([employer]) Berna Stover on May 16. She mentioned they discussed transportation and housing. She reported [employer] is aware of the housing situation and has been working with pt. We discussed the purpose of the visit today and reiterated that pt will be returning home. She requested discharge paperwork to be faxed to [phone] once pt is discharged.
== END 2022-05-18 15:46 | disposition home or self-care (01) ==
PROVIDERS: Nurse Practitioner Family; Emergency Provider Emergency Medicine
DX: F33.1 Major depressive disorder, recurrent, moderate (principal); I10 Essential (primary) hypertension; Z20.822 Contact with and (suspected) exposure to COVID-19; Z87.891 Personal history of nicotine dependence; Z79.899 Other long term (current) drug therapy
CPT/HCPCS: 80307; 81001; 87635; 99284; 99285

== ENCOUNTER 2023-04-14 20:49 | Emergency (ER) | payer MEDICARE, SELFPAY ==
--- NOTE | ~2023-04-14 | CT_ITS ---
EXAMINATION: CT HEAD WITHOUT CONTRAST CLINICAL INFORMATION: Headache status-post fall. COMPARISON: CT head dated 11/17/2020. TECHNIQUE: Contiguous axial imaging was performed from the skull base to vertex without intravenous administration of contrast. Multiplanar reformatted images are submitted. This CT examination was performed using dose optimization techniques as appropriate, variously including the following: *Automated exposure control *Adjustment of mA and/or kV according to patient size (this includes techniques or standardized protocols for targeted exams where dose is matched to indication/reason for exam; i.e. extremities or head) *Use of iterative reconstruction technique DLP: 1236 mGy-cm (head and cervical spine) FINDINGS: There is no acute intracranial hemorrhage or evidence of territorial infarction. No abnormal mass effect or midline shift is seen. Mitchell to white matter differentiation is well preserved. There is no abnormal attenuation within the brain parenchyma. The ventricles are normal in size. No extra-axial fluid collections are identified. The calvarium and scalp soft tissues are normal. The middle ear cavity and mastoid air cells are clear. There is mild bilateral ethmoid sinusitis. CT/CT cervical spine wo IV con IMPRESSION: 1. No acute intracranial pathology. 2. There is mild bilateral ethmoid sinusitis. EXAMINATION: CT CERVICAL SPINE WITHOUT CONTRAST CLINICAL INFORMATION: Neck pain status-post fall. COMPARISON: CT cervical spine dated 11/17/2020. TECHNIQUE: Contiguous axial imaging was performed through the cervical spine without intravenous administration of contrast. Multiplanar reformatted images are submitted. This CT examination was performed using dose optimization techniques as appropriate, variously including the following: *Automated exposure control *Adjustment of mA and/or kV according to patient size (this includes techniques or standardized protocols for targeted exams where dose is matched to indication/reason for exam; i.e. extremities or head) *Use of iterative reconstruction technique DLP: As above FINDINGS: Vertebral body heights are normal. There is moderate to marked degenerative disc disease extending from C3-C4 through C6-C7. No acute fracture or spondylolisthesis is seen. There is multi-level cervical spondylosis and facet arthropathy. The posterior elements are intact. The dens is intact. No prevertebral soft tissue swelling is seen. The bilateral lung apices are clear. IMPRESSION: 1. No acute fracture or spondylolisthesis is seen. 2. There is moderate to marked degenerative disc disease extending from C3-C4 through C6-C7. 3. There is multi-level cervical spondylosis and facet arthropathy. Fleischner guidelines were followed.
[2023-04-14 20:55] VITALS: BP 117/64; PULSE 98; O2SAT 98
[2023-04-14 21:07] VITALS: BP 149/82; PULSE 68; RESP 15; TEMP 37.2; O2SAT 95; BMI 24.2
[2023-04-14 21:16] VITALS: BP 118/69; PULSE 102; RESP 18; O2SAT 94
--- NOTE | 2023-04-14 21:24 | ED_ITS ---
HPI - Fall General Chief Complaint: Fall Stated Complaint: pat coming from snf, fall from bed, per ems Time Seen by Provider: 04/14/23 21:06 Source: patient Mode of arrival: EMS Limitations: no limitations History of Present Illness HPI Narrative: patient comes to the emergency room from a retirement facility. Patient states that earlier today, patient kept bringing his lares trying to get the staff's attention. Patient states he was ignored and therefore the patient threw himself on the ground. 911 was called, patient was placed on a C-collar and brought to emergency room. Patient denies any pain, denies head strike, denies being on blood thinners. Related Data Home Medications Medication Instructions Recorded Confirmed aspirin 81 mg tablet,delayed 1 tab PO DAILY 07/22/20 11/23/20 release atorvastatin 40 mg tablet 40 mg PO DAILY 07/22/20 11/23/20 folic acid 1 mg tablet 1 tab PO DAILY 07/22/20 11/23/20 hydrochlorothiazide 25 mg tablet 1 tab PO DAILY 07/22/20 11/23/20 lisinopril 10 mg tablet 1 tab PO DAILY 07/22/20 11/23/20 metformin 500 mg tablet,extended 1 tab PO DAILY 07/22/20 11/23/20 release 24 hr fluticasone propionate 50 1 spray intranasal BID 11/17/20 11/23/20 mcg/actuation nasal spray,suspension Previous Rx's Medication Instructions Recorded acetaminophen 325 mg tablet 650 mg (2 x 325 mg) PO Q6H PRN 12/07/20 Pain, Mild (Pain Scale 1-3) 30 days #60 tabs aspirin 81 mg tablet,delayed 81 mg PO DAILY 30 days #30 tabs 12/07/20 release atorvastatin 40 mg tablet 40 mg PO DAILY 30 days #30 tabs 12/07/20 fluoxetine 40 mg capsule (Prozac) 40 mg PO QPM 30 days #30 caps 12/07/20 fluticasone propionate 50 1 spray intranasal BID 30 days #1 g 12/07/20 mcg/actuation nasal spray,suspension folic acid 1 mg tablet 1 mg PO DAILY 30 days #30 tabs 12/07/20 hydrochlorothiazide 25 mg tablet 25 mg PO DAILY 30 days #30 tabs 12/07/20 lisinopril 10 mg tablet 10 mg PO DAILY 30 days #30 tabs 12/07/20 metformin 500 mg tablet,extended 500 mg PO DAILY 30 days #30 tabs 12/07/20 release 24 hr tamsulosin 0.4 mg capsule 0.4 mg PO DAILY@1730 30 days 12/07/20 tamsulosin 0.4 mg capsule 0.4 mg PO DAILY@1730 30 days #30 12/07/20 caps trazodone 50 mg tablet 100 mg (2 x 50 mg) PO BEDTIME PRN 12/07/20 insomnia 30 days Allergies Allergy/AdvReac Type Severity Reaction Status Date / Time No Known Drug Allergies Allergy Unknown NONE Verified 11/23/20 22:08 [NO KNOWN DRUG ALLERGIES] Review of Systems Review of Systems: Constitutional : No Weight loss, No Fever, No Chills, No Night Sweats, No Fatigue, No Malaise ENT/Mouth : No Hearing loss, No Ear Pain, No Nasal Congestion, No Sinus Pain, No Hoarseness, No sore throat, No Rhinorrhea, No Swallowing Difficulty Eyes: No Eye Pain, No Swelling, No Redness, No Foreign Body, No Discharge, No Vision Changes Cardiovascular : No Chest Pain, No SOB, No Dyspnea on Exertion, No Orthopnea, No Edema, No Palpitations Respiratory : No Cough, No Sputum, No Wheezing, No Smoke Exposure, No Dyspnea Gastrointestinal : No Nausea, No Vomiting, No Diarrhea, No Constipation, No abdominal Pain, No Hematochezia, No Melena Genitourinary : no irregular bleeding, No Dysuria, No Urinary Frequency, No Hematuria, No Urinary Incontinence, No Urgency, No Flank Pain, No Urinary Flow Changes, No Hesitancy Musculoskeletal : No joint pain, No Myalgias, No Joint Swelling Skin : No Skin Lesions, No rash Neuro : No Weakness, No Numbness, No Paresthesias, No Loss of Consciousness, No Dizziness, No Headache Psych : No Anxiety/Panic, No Depression, No SI/HI/AH/VH, No Social Issues, Heme/Lymph: No Bruising, No Bleeding,No Lymphadenopathy Endocrine : No Polyuria, No Polydipsia, No Temperature Intolerance [facility] Past Medical History Medical History Psoriasis Diabetes Cognitive impairment Depression Stroke Hyperlipidemia Anemia HTN (hypertension) Social History Social History Household Members: None Housing: Apartment Do you presently have visiting nurse or other home services: Yes ([employer] services were intermittent, Pt. reports they do not show up regularly) Alcohol intake: former Cigarette Packs Per Day: 2 Cigarettes Per Day: 40.0 Years Smoked: 25 Second Hand Smoke Exposure: Yes Advance Directives: No Advance Directives Information Provided: No service: No Current occupational status: disabled Sexual orientation: Straight/Heterosexual Physical Exam Vital Signs: Vital Signs: Last Vital Signs Temp 98.9 F 04/14/23 21:07 Pulse 102 H 04/14/23 21:16 Resp 18 04/14/23 21:16 BP 118/69 04/14/23 21:16 Pulse Ox 94 04/14/23 21:16 O2 Del Method Room Air 04/14/23 21:16 BMI result Body Mass Index 24.2 Const: Other: Appearance: Alert. Oriented X3. No acute distress. Eyes: Pupils equal, round and reactive to light. ENT: Pharynx normal. Neck: On C-collar precautions, no C-spine tenderness on palpation, no palpable step-offs CVS: Normal heart rate and rhythm. Pulses normal. Normal S1 and S2 Respiratory: No respiratory distress. Breath sounds normal. No Wheezing. No rales Abdomen: Soft and nontender. No rigidity. No distention. Skin: Skin warm and dry. Normal skin color. Normal skin turgor. no abrasions, no ecchymosis Extremities: No lower extremity edema. No Lacerations. No Rash Neuro: Oriented X 3. No motor deficit. No sensory deficit. Moving all extremities. No slurred speech. CN 2 through 12 grossly intact Psych: calm, cooperative, normal affect Course Course Course Narrative: - patient's head CT and cervical spine CT pending. Medical Decision Making Medical Decision Making [facility] Narrative: - my interpretation of head CT, no intracranial bleed - patient has no complaints, patient ready to be returned to the retirement facility. Differential Diagnosis Differential Diagnoses: The differential diagnosis associated with the presentation includes ( Contusion, concussion, intracranial bleed) Admission/Observation Consideration of admission/observation: Escalation of care including admission/observation considered ( given patient's history, on arrival, admission was considered) Independent Interpretation I performed an independent interpretation of an: CT Scan Radiology Impression Discussion of test interpretation with radiology: I have reviewed the radiologist's reading. Radiologist Impression: FINDINGS: Vertebral body heights are normal. There is moderate to marked degenerative disc disease extending from C3-C4 through C6-C7. No acute fracture or spondylolisthesis is seen. There is multi-level cervical spondylosis and facet arthropathy. The posterior elements are intact. The dens is intact. No prevertebral soft tissue swelling is seen. The bilateral lung apices are clear. IMPRESSION: 1. No acute fracture or spondylolisthesis is seen. 2. There is moderate to marked degenerative disc disease extending from C3-C4 through C6-C7. 3. There is multi-level cervical spondylosis and facet arthropathy. Critical Care Time Critical Care Time Critical Care Time: Yes Total Critical Care Time: 45 Attestation: I have personally provided critical care time. Time includes review of lab data, radiology results, discussion with consultants, and monitoring for potential decompensation. Intervention performed as documented. Discharge Plan Discharge Clinical Impression: Fall Patient Disposition: Home, Self-Care Instructions: Fall Prevention for Older Adults (ED) Additional Instructions: Please follow-up with your primary care physician tomorrow. If you have any worsening or new symptoms, please return to the emergency room or call 911 Prescriptions: No Action aspirin 81 mg tablet,delayed release (DR/EC) 1 tab PO DAILY lisinopril 10 mg tablet 1 tab PO DAILY folic acid 1 mg tablet 1 tab PO DAILY hydrochlorothiazide 25 mg tablet 1 tab PO DAILY metformin 500 mg tablet extended release 24 hr 1 tab PO DAILY atorvastatin 40 mg tablet 40 mg PO DAILY fluticasone propionate 50 mcg/actuation spray,suspension 1 spray intranasal BID tamsulosin 0.4 mg Capsule 0.4 mg PO DAILY@1730 30 Days Qty: 30 0RF tamsulosin 0.4 mg Capsule 0.4 mg PO DAILY@1730 30 Days 0RF atorvastatin 40 mg Tablet 40 mg PO DAILY 30 Days Qty: 30 0RF lisinopril 10 mg Tablet 10 mg PO DAILY 30 Days Qty: 30 0RF Protocol: Hold for SBP< HOLD for SBP < : 90 acetaminophen 325 mg Tablet 650 mg PO Q6H PRN (Reason: Pain, Mild (Pain Scale 1-3)) 30 Days Qty: 60 0RF trazodone 50 mg Tablet 100 mg PO BEDTIME PRN (Reason: insomnia) 30 Days 0RF aspirin 81 mg Tablet,Delayed Release (Dr/Ec) 81 mg PO DAILY 30 Days Qty: 30 0RF hydrochlorothiazide 25 mg Tablet 25 mg PO DAILY 30 Days Qty: 30 0RF Protocol: Hold for SBP< HOLD for SBP < : 90 fluticasone propionate 50 mcg/actuation [place],Suspension 1 spray intranasal BID 30 Days Qty: 1 0RF metformin 500 mg Tablet Extended Release 24 Hr 500 mg PO DAILY 30 Days Qty: 30 0RF folic acid 1 mg Tablet 1 mg PO DAILY 30 Days Qty: 30 0RF fluoxetine [Prozac] 40 mg capsule 40 mg PO QPM 30 Days Qty: 30 0RF
--- NOTE | 2023-04-14 21:28 | PC.NURSE ---
pt verbalizes being disappointed in the care he is receiving from the facility he is living at due to this he decided to pull myself to the floor so they could respond . No acute distress, respirations even and unlabored, skin pwd, alert and oriented x4
[2023-04-14 22:48] VITALS: BP 103/73; PULSE 102; RESP 20; TEMP 37.2; O2SAT 96
== END 2023-04-14 23:08 | disposition home or self-care (01) ==
PROVIDERS: Emergency Provider Emergency Medicine; PCP Internal Medicine
DX: Z03.89 Encounter for observation for other suspected diseases and conditions ruled out (principal); Z91.81 History of falling; E11.9 Type 2 diabetes mellitus without complications; I10 Essential (primary) hypertension; E78.5 Hyperlipidemia, unspecified; D64.9 Anemia, unspecified; F17.210 Nicotine dependence, cigarettes, uncomplicated; Z86.73 Personal history of transient ischemic attack (TIA), and cerebral infarction without residual deficits; Z79.82 Long term (current) use of aspirin; Z79.899 Other long term (current) drug therapy; Z79.84 Long term (current) use of oral hypoglycemic drugs
CPT/HCPCS: 70450; 72125; 99284